=== PATIENT | male | born 1980 | race Caucasian/White ===

== ENCOUNTER 2016-06-20 20:22 | Emergency (ER) | payer BC ==
--- NOTE | 2016-06-20 20:23 | EDM.PDOC ---
ED HPI GENERAL MEDICAL PROBLEM - General Chief Complaint: General Stated Complaint: TOOTH PAIN Time Seen by Provider: 06/20/16 20:23 Source of Information: Reports: Patient History Limitations: Reports: No limitations - History of Present Illness INITIAL COMMENTS - FREE TEXT/NARRATIVE: History of present illness: [36 show male complaining of left-sided oral pain. Patient indicates that he had are filling the broke out and on for the whole and now he's had swelling and pain to the left side of his jaw an area approximately 15.] Review of systems: As per history of present illness and below otherwise all systems reviewed and negative. Past medical history: As per history of present illness and as reviewed below otherwise noncontributory. Surgical history: As per history of present illness and as reviewed below otherwise noncontributory. Social history: No reported history of drug or alcohol abuse. Family history: As per history of present illness and as reviewed below otherwise noncontributory. Physical exam: HEENT: Atraumatic, normocephalic, pupils reactive, negative for conjunctival pallor or scleral icterus, mucous membranes moist, throat clear, neck supple, nontender, trachea midline. Lungs: Clear to auscultation, breath sounds equal bilaterally, chest nontender. Heart: S1S2, regular, negative for clicks, rubs, or JVD. Abdomen: Soft, nondistended, nontender. Negative for masses or hepatosplenomegaly. Negative for costovertebral tenderness. Pelvis: Stable nontender. Genitourinary: Deferred. Rectal: Deferred. Extremities: Atraumatic, negative for cords or calf pain. Neurovascular unremarkable. Neuro: Awake, alert, oriented. Cranial nerves II through XII unremarkable. Cerebellum unremarkable. Motor and sensory unremarkable throughout. Exam nonfocal. oral examination reveals slight erythema and edema noted at jawline but not visualized externally. Slightly tender to palpation and extreme opening Diagnostics: [] Therapeutics: [] Impression: [dental abscess with dental care] Plan: [antibiotics followup with the dentist] Definitive disposition and diagnosis as appropriate pending reevaluation and review of above. - Related Data Allergies Allergy/AdvReac Type Severity Reaction Status Date / Time No Known Allergies Allergy Verified 06/20/16 20:38 Home Meds: Home Meds Amoxicillin/Potassium Clav [Augmentin 875-125 Tablet] 1 each PO BID #20 tablet 06/20/16 [Rx] ED ROS GENERAL - Review of Systems Review Of Systems: See Below (see history of present illness) ED EXAM, GENERAL - Physical Exam Exam: See Below (see history of present illness) Departure - Departure Time of Disposition: 20:49 Disposition: Home, Self-Care 01 Condition: good Clinical Impression: Dental abscess Forms: ED Department Discharge Additional Instructions: The following information is given to patients seen in the emergency department who are being discharged to home. This information is to outline your options for follow-up care. We provide all patients seen in our emergency department with a follow-up referral. The need for follow-up, as well as the timing and circumstances, are variable depending upon the specifics of your emergency department visit. If you don't have a primary care physician on staff, we will provide you with a referral. We always advise you to contact your personal physician following an emergency department visit to inform them of the circumstance of the visit and for follow-up with them and/or the need for any referrals to a consulting specialist. The emergency department will also refer you to a specialist when appropriate. This referral assures that you have the opportunity for follow-up care with a specialist. All of these measure are taken in an effort to provide you with optimal care, which includes your follow-up. Under all circumstances we always encourage you to contact your private physician who remains a resource for coordinating your care. When calling for follow-up care, please make the office aware that this follow-up is from your recent emergency room visit. If for any reason you are refused follow-up, please contact the [facility] Emergency Department at and asked to speak to the emergency department charge nurse. take medication as directed Followup with PCP 1-2 days in this case dental DORINA return to ED as needed as
[2016-06-20 21:04] VITALS: BP 146/82
== END 2016-06-20 20:55 | disposition home or self-care (01) ==
LOC: MW.ED 20:22
DX: K04.7 Periapical abscess without sinus (principal); K02.9 Dental caries, unspecified
CPT/HCPCS: 99282; 99283

== ENCOUNTER 2016-10-07 10:30 | Emergency (ER) | payer BC ==
[2016-10-07] MEDS ORDERED: Ketorolac 60 MG/2 ML SDV IM ONE (10:50)
--- NOTE | 2016-10-07 11:24 | EDM.PDOC ---
ED HPI GENERAL MEDICAL PROBLEM - General Chief Complaint: Back Pain or Injury Stated Complaint: BACK PAIN Time Seen by Provider: 10/07/16 10:40 Source of Information: Reports: Patient History Limitations: Reports: No Limitations - History of Present Illness INITIAL COMMENTS - FREE TEXT/NARRATIVE: History of present illness: [36-year-old male presenting with complaints of acute mid back pain. Patient indicates he does do some heavy lifting at work and he noticed a few days ago some pain in his midback and was able to feel a bit of a knot on the left lateral side. Girlfriend did some massaging to try to help but he felt some significant amount of spasm at this time and it has not really improved appreciably in regards to pain and tightness.] Review of systems: As per history of present illness and below otherwise all systems reviewed and negative. Past medical history: As per history of present illness and as reviewed below otherwise noncontributory. Surgical history: As per history of present illness and as reviewed below otherwise noncontributory. Social history: No reported history of drug or alcohol abuse. Family history: As per history of present illness and as reviewed below otherwise noncontributory. Physical exam: HEENT: Atraumatic, normocephalic, pupils reactive, negative for conjunctival pallor or scleral icterus, mucous membranes moist, throat clear, neck supple, nontender, trachea midline. Lungs: Clear to auscultation, breath sounds equal bilaterally, chest nontender. Heart: S1S2, regular, negative for clicks, rubs, or JVD. Abdomen: Soft, nondistended, nontender. Negative for masses or hepatosplenomegaly. Negative for costovertebral tenderness. Pelvis: Stable nontender. Genitourinary: Deferred. Rectal: Deferred. Extremities: Atraumatic, negative for cords or calf pain. Neurovascular unremarkable. Neuro: Awake, alert, oriented. Cranial nerves II through XII unremarkable. Cerebellum unremarkable. Motor and sensory unremarkable throughout. Exam nonfocal. Global assessment is benign save the subjective complaint as noted in the history of present illness Diagnostics: [X-ray of thoracic spine] Therapeutics: [Toradol, Norflex] Impression: [Back pain] Plan: [Muscle relaxer, NSAIDS] Definitive disposition and diagnosis as appropriate pending reevaluation and review of above. Mid-Back Pain Score (Numeric/FACES): 10 - Related Data Allergies Allergy/AdvReac Type Severity Reaction Status Date / Time No Known Allergies Allergy Verified 10/07/16 10:39 Home Meds: Home Meds Meloxicam 7.5 mg PO BID #30 tablet 10/07/16 [Rx] Orphenadrine [Norflex] 100 mg PO BID #28 tab.er 10/07/16 [Rx] Past Medical History HEENT History: Reports: None Cardiovascular History: Reports: None Respiratory History: Reports: None Gastrointestinal History: Reports: None Genitourinary History: Reports: None Musculoskeletal History: Reports: None Neurological History: Reports: None Psychiatric History: Reports: None Endocrine/Metabolic History: Reports: None Hematologic History: Reports: None Immunologic History: Reports: None Oncologic (Cancer) History: Reports: None Dermatologic History: Reports: None - Infectious Disease History Infectious Disease History: Reports: None - Past Surgical History Head Surgeries/Procedures: Reports: None HEENT Surgical History: Reports: None Cardiovascular Surgical History: Reports: None Respiratory Surgical History: Reports: None GI Surgical History: Reports: Hernia, Inguinal Male Surgical History: Reports: None Endocrine Surgical History: Reports: None Neurological Surgical History: Reports: None Musculoskeletal Surgical History: Reports: None Dermatological Surgical History: Reports: None Social & Family History - Family History Family Medical History: Noncontributory - Tobacco Use Smoking Status *Q: Former Smoker Used Tobacco, but Quit: Yes Month Tobacco Last Used: 2009 - Caffeine Use Caffeine Use: Reports: None - Recreational Drug Use Recreational Drug Use: No ED ROS GENERAL - Review of Systems Review Of Systems: See Below (See history of present illness) ED EXAM, UPPER BACK/NECK PAIN - Physical Exam Exam: See Below (See history of present illness) Course - Vital Signs Last Recorded V/S: Last Vital Signs Temp 36.3 C 10/07/16 10:33 Pulse 78 10/07/16 10:33 Resp 18 10/07/16 10:33 BP 189/113 H 10/07/16 10:33 Pulse Ox 99 10/07/16 10:33 - Orders/Labs/Meds Orders: Active Orders 24 hr Category Date Time Status Thoracic Spine 3V [CR] Stat Exams 10/07/16 10:55 Taken Orphenadrine [Norflex] Med 10/07/16 11:00 Active 60 mg IM Q12H Medication Orders Orphenadrine Citrate (Norflex) 60 mg IM Q12H SANDRA Last Admin: 10/07/16 10:59 Dose: 60 mg Meds: Medications Generic Name Dose Route Start Last Admin Trade Name Freq PRN Reason Stop Dose Admin Orphenadrine Citrate 60 mg 10/07/16 11:00 10/07/16 10:59 Norflex IM 60 mg Q12H SANDRA Administration Discontinued Medications Generic Name Dose Route Start Last Admin Trade Name Freq PRN Reason Stop Dose Admin Ketorolac Tromethamine 60 mg 10/07/16 10:50 10/07/16 11:00 Toradol IM 10/07/16 10:51 60 mg ONETIME ONE Administration Departure - Departure Time of Disposition: 12:04 Disposition: Home, Self-Care 01 Condition: Good Clinical Impression: Back pain - Discharge Information Prescriptions: Meloxicam 7.5 mg PO BID #30 tablet Orphenadrine [Norflex] 100 mg PO BID #28 tab.er Forms: ED Department Discharge Additional Instructions: The following information is given to patients seen in the emergency department who are being discharged to home. This information is to outline your options for follow-up care. We provide all patients seen in our emergency department with a follow-up referral. The need for follow-up, as well as the timing and circumstances, are variable depending upon the specifics of your emergency department visit. If you don't have a primary care physician on staff, we will provide you with a referral. We always advise you to contact your personal physician following an emergency department visit to inform them of the circumstance of the visit and for follow-up with them and/or the need for any referrals to a consulting specialist. The emergency department will also refer you to a specialist when appropriate. This referral assures that you have the opportunity for follow-up care with a specialist. All of these measure are taken in an effort to provide you with optimal care, which includes your follow-up. Under all circumstances we always encourage you to contact your private physician who remains a resource for coordinating your care. When calling for follow-up care, please make the office aware that this follow-up is from your recent emergency room visit. If for any reason you are refused follow-up, please contact the [facility] Emergency Department at and asked to speak to the emergency department charge nurse. Take medication as directed Follow-up with PCP 1-2 days Return to ED as needed as discussed - My Orders Last 24 Hours: My Active Orders 10/07/16 10:55 Thoracic Spine 3V [CR] Stat 10/07/16 11:00 Orphenadrine [Norflex] 60 mg IM Q12H - Assessment/Plan Last 24 Hours: My Active Orders 10/07/16 10:55 Thoracic Spine 3V [CR] Stat 10/07/16 11:00 Orphenadrine [Norflex] 60 mg IM Q12H
[2016-10-07 12:24] VITALS: BP 142/101
--- NOTE | 2016-10-08 15:39 | CR ---
EXAM DATE: 10/07/16 PATIENT'S AGE: 36 Patient: DOMINGO MENJIVAR Facility: [place], [place] Site . Site : [id number] Study: XRay Spine Thoracic [id number] 11:30:19 AM Ordering Physician: Doctor Banks Final Report: TECHNIQUE: Two views of the thoracic spine. INDICATION: Back pain. FINDINGS: No thoracic spine fracture or malalignment. Minimal spondylosis in the lower thoracic spine. Otherwise negative. Dictated by Cruz Mcbride MD @ 10/07/2016 11:50:11 AM Dictated by: Cruz Mcbride MD @ 10/07/2016 11:50:16 (Electronic Signature) Report Signed by Proxy. [facility] HOSPITALRemy
== END 2016-10-07 12:18 | disposition home or self-care (01) ==
LOC: MW.ED 10:30
DX: M54.6 Pain in thoracic spine (principal); Z87.891 Personal history of nicotine dependence
CPT/HCPCS: 72072; 96372; 99283; J1885; J2360

== ENCOUNTER 2017-01-16 14:16 | Emergency (ER) | payer BC ==
[2017-01-16 14:30] VITALS: BP 140/77
--- NOTE | 2017-01-16 14:42 | EDM.PDOC ---
ED HPI GENERAL MEDICAL PROBLEM - General Chief Complaint: Lower Extremity Injury/Pain Stated Complaint: SORE ON HIS LEG Time Seen by Provider: 01/16/17 14:29 Source of Information: Reports: Patient History Limitations: Reports: No Limitations - History of Present Illness INITIAL COMMENTS - FREE TEXT/NARRATIVE: History of present illness: []She fell off a ladder a week ago and twisted his right ankle and cut his right leg. He did not seek help until today when his boss told him he could lose his leg. He states he has numbness and pain from below and behind the knee down to his ankle. There is a 2 cm x 2 cm open wound in the anterior portion of his leg. Patient's last tetanus shot was 3 years ago Review of systems: As per history of present illness and below otherwise all systems reviewed and negative. Past medical history: As per history of present illness and as reviewed below otherwise noncontributory. Surgical history: As per history of present illness and as reviewed below otherwise noncontributory. Social history: No reported history of drug or alcohol abuse. Family history: As per history of present illness and as reviewed below otherwise noncontributory. Physical exam: General: Well developed, well nourished in NAD HEENT: Atraumatic, normocephalic, pupils reactive, negative for conjunctival pallor or scleral icterus, mucous membranes moist, throat clear, neck supple, nontender, trachea midline. Lungs: Clear to auscultation, breath sounds equal bilaterally, chest nontender. Heart: S1S2, regular, negative for clicks, rubs, or JVD. Abdomen: Soft, nondistended, nontender. Negative for masses or hepatosplenomegaly. Negative for costovertebral tenderness. Pelvis: Stable nontender. Genitourinary: Deferred. Rectal: Deferred. Extremities: Atraumatic, negative for cords or calf pain. Neurovascular unremarkable. Neuro: Awake, alert, oriented. Cranial nerves II through XII unremarkable. Cerebellum unremarkable. Motor and sensory unremarkable throughout. Exam nonfocal. Diagnostics: []X-ray shows no fracture ultrasound shows no DVT Therapeutics: [] Impression: []Right leg traumatic ulceration having cellulitis Plan: []Keflex 4 times a day for 7 days follow-up PMD Definitive disposition and diagnosis as appropriate pending reevaluation and review of above. right leg Pain Score (Numeric/FACES): 8 - Related Data Allergies Allergy/AdvReac Type Severity Reaction Status Date / Time No Known Allergies Allergy Verified 01/16/17 14:27 Home Meds: Home Meds Cephalexin [Keflex] 500 mg PO Q6HR #28 cap 01/16/17 [Rx] Past Medical History - Past Health History Medical/Surgical History: Denies Medical/Surgical History HEENT History: Reports: None Cardiovascular History: Reports: None Respiratory History: Reports: None Gastrointestinal History: Reports: None Genitourinary History: Reports: None Musculoskeletal History: Reports: None Neurological History: Reports: None Psychiatric History: Reports: None Endocrine/Metabolic History: Reports: None Hematologic History: Reports: None Immunologic History: Reports: None Oncologic (Cancer) History: Reports: None Dermatologic History: Reports: None - Infectious Disease History Infectious Disease History: Reports: None - Past Surgical History Head Surgeries/Procedures: Reports: None HEENT Surgical History: Reports: None Cardiovascular Surgical History: Reports: None Respiratory Surgical History: Reports: None GI Surgical History: Reports: Hernia, Inguinal Male Surgical History: Reports: None Endocrine Surgical History: Reports: None Neurological Surgical History: Reports: None Musculoskeletal Surgical History: Reports: None Dermatological Surgical History: Reports: None Social & Family History - Family History Family Medical History: Noncontributory - Tobacco Use Smoking Status *Q: Current Every Day Smoker Years of Tobacco use: 20 Packs/Tins Daily: 1 Used Tobacco, but Quit: Yes Month Tobacco Last Used: 2009 - Caffeine Use Caffeine Use: Reports: None - Recreational Drug Use Recreational Drug Use: No Review of Systems - Review of Systems Review Of Systems: See Below (See history of present illness) ED EXAM, GENERAL - Physical Exam Exam: See Below (See history of present illness) Course - Vital Signs Last Recorded V/S: Last Vital Signs Temp 97.8 F 01/16/17 14:16 Pulse 95 01/16/17 14:16 Resp 16 01/16/17 14:16 BP 140/77 01/16/17 14:16 Pulse Ox 98 01/16/17 14:16 - Orders/Labs/Meds Orders: Active Orders 24 hr Category Date Time Status Tibia Fibula Rt [CR] Stat Exams 01/16/17 14:40 Taken Departure - Departure Time of Disposition: 15:31 Disposition: Home, Self-Care 01 Condition: Good Clinical Impression: Cellulitis of right leg - Discharge Information Prescriptions: Cephalexin [Keflex] 500 mg PO Q6HR #28 cap Referrals: PCP,None [Primary Care Provider] - Forms: ED Department Discharge Additional Instructions: The following information is given to patients seen in the emergency department who are being discharged to home. This information is to outline your options for follow-up care. We provide all patients seen in our emergency department with a follow-up referral. The need for follow-up, as well as the timing and circumstances, are variable depending upon the specifics of your emergency department visit. If you don't have a primary care physician on staff, we will provide you with a referral. We always advise you to contact your personal physician following an emergency department visit to inform them of the circumstance of the visit and for follow-up with them and/or the need for any referrals to a consulting specialist. The emergency department will also refer you to a specialist when appropriate. This referral assures that you have the opportunity for follow-up care with a specialist. All of these measure are taken in an effort to provide you with optimal care, which includes your follow-up. Under all circumstances we always encourage you to contact your private physician who remains a resource for coordinating your care. When calling for follow-up care, please make the office aware that this follow-up is from your recent emergency room visit. If for any reason you are refused follow-up, please contact the [facility] Emergency Department at and asked to speak to the emergency department charge nurse. Keflex as directed. Keep wound clean and dry follow-up with PMD turn if symptoms worsen or change [facility] [address] [place] [id number] - My Orders Last 24 Hours: My Active Orders 01/16/17 14:40 Tibia Fibula Rt [CR] Stat - Assessment/Plan Last 24 Hours: My Active Orders 01/16/17 14:40 Tibia Fibula Rt [CR] Stat
--- NOTE | 2017-01-16 15:26 | US ---
ULTRASOUND EXAMINATION OF the right lower extremity WITH DOPPLER HISTORY: Pain FINDINGS: Examination of the right leg was performed from the groin to the calf region. All visualized segment s including common femoral, proximal greater saphenous, superficial femoral, popliteal and calf veins appear patent with good compressibility and augmentation. There is no evidence of deep vein thrombo sis. IMPRESSION: No evidence of a DVT.
--- NOTE | 2017-01-16 15:30 | CR ---
EXAMINATION: Right tibia and fibula HISTORY: Fall COMPARISON: None TECHNIQUE: 2 views FINDINGS/IMPRESSION: There is no acute osseous abnormality, dislocation, or fracture. Bone mineraliza tion and joint spaces appear normal. Well-corticated ossific densities are noted distal to the medial and lateral malleoli, likely secondary to old injuries. Subcutaneous varices noted most prominent al last the medial aspect of the leg.
== END 2017-01-16 15:40 | disposition home or self-care (01) ==
LOC: MW.ED 14:16
DX: L03.115 Cellulitis of right lower limb (principal); L97.919 Non-pressure chronic ulcer of unspecified part of right lower leg with unspecified severity; F17.210 Nicotine dependence, cigarettes, uncomplicated
CPT/HCPCS: 73590-26-RT; 73590-RT; 93971-26-RT; 93971-RT; 99284; 99284-25

== ENCOUNTER 2018-06-04 10:51 | Emergency (ER) | payer SELFPAY ==
[2018-06-04] MEDS ORDERED: Ketorolac 60 MG/2 ML SDV IM ONE (11:22)
--- NOTE | 2018-06-04 11:27 | EDM.PDOC ---
ED HPI GENERAL MEDICAL PROBLEM - General Chief Complaint: Back Pain or Injury Stated Complaint: BACK PAIN Time Seen by Provider: 06/04/18 10:57 Source of Information: Reports: Patient History Limitations: Reports: No Limitations - History of Present Illness INITIAL COMMENTS - FREE TEXT/NARRATIVE: HISTORY AND PHYSICAL: History of present illness: Patient is a 38-year-old male who presents to the emergency room today with complaints of lumbar back pain, right hip pain and right knee pain. Patient states that on 05/29/18 a wall. Patient had fallen onto him resulting in him falling onto his right side onto the ground. He denies hitting his head or any loss of consciousness. He states initially after the fall she did not have any pain at this time has gone on he has pain to these areas. He denies any urinary or fecal incontinence. He states he is ambulatory without any difficulty or deficits, although this does cause pain as described above. Patient denies any fever, chills, headache, change in vision, syncope or near syncope. Denies any chest pain, back pain, shortness of breath or cough. Denies any abdominal pain, nausea, vomiting, diarrhea, constipation or dysuria. Has not noted any blood in urine or stool. Patient has been eating and drinking appropriately. Review of systems: As per history of present illness and below otherwise all systems reviewed and negative. Past medical history: As per history of present illness and as reviewed below otherwise noncontributory. Surgical history: As per history of present illness and as reviewed below otherwise noncontributory. Social history: See social history for further information Family history: As per history of present illness and as reviewed below otherwise noncontributory. Physical exam: General: Well-developed and well-nourished 38-year-old male. Alert and oriented. Nontoxic appearing and in no acute distress. HEENT: Atraumatic, normocephalic, pupils equal and reactive bilaterally, negative for conjunctival pallor or scleral icterus, mucous membranes moist, TMs normal bilaterally, throat clear, neck supple, nontender, trachea midline. No drooling or trismus noted. No meningeal signs. No hot potato voice noted. Lungs: Clear to auscultation, breath sounds equal bilaterally, chest nontender. Heart: S1S2, regular rate and rhythm without overt murmur Abdomen: Soft, nondistended, nontender. Negative for masses. Negative for costovertebral tenderness. Pelvis: Stable nontender. Genitourinary: Deferred. Rectal: Deferred. Skin: Intact, warm, dry. No lesions or rashes noted. C-spine/Back: No pinpoint vertebral tenderness upon palpation. No crepitus, step -offs or obvious deformities. Patient is ambulatory into the emergency room without difficulty or deficits. He does have paraspinous muscle tenderness to the right lumbar region going into the right hip. Extremities: Moves all extremities per self with difficulty or deficits, no pelvis instability. Knee has full range of motion without instability. Negative drawer test. Strong pedal pulses bilaterally. He is negative for cords or calf pain. Neurovascular unremarkable. Neuro: Awake, alert, oriented. Cranial nerves II through XII unremarkable. Cerebellum unremarkable. Motor and sensory unremarkable throughout. Exam nonfocal. Notes: X-ray shows no acute findings. The right hip and pelvis does not show any acute findings although does show to have an old previous injury. Supportive care measures were reviewed and discussed. Voices understanding and is agreeable to plan of care. Denies any further questions or concerns at this time. Diagnostics: Lumbar back x-ray, pelvis with right hip x-ray, right knee x-ray Therapeutics: Toradol, Norflex Prescription: Flexeril, diclofenac Impression: Lumbar back pain Right hip pain Plan: 1. Rest, ice, elevate the affected extremity. Apply gentle heat to the painful areas 15 minutes on/15 minutes off. Gentle stretching to avoid muscle stiffness. 2. Tylenol and/or Ibuprofen as needed for pain management. 3. Follow up with the Orthopedic provider as we discussed. Return to the ED as needed and as discussed. Definitive disposition and diagnosis as appropriate pending reevaluation and review of above. Duration: Week(s): Right Hip Pain Score (Numeric/FACES): 10 - Related Data Allergies Allergy/AdvReac Type Severity Reaction Status Date / Time No Known Allergies Allergy Verified 11/28/17 17:43 Home Meds: Home Meds Cyclobenzaprine [Flexeril] 10 mg PO TID PRN #21 tab 06/04/18 [Rx] Diclofenac Sodium [Voltaren] 75 mg PO BIDMEALS PRN #30 tab.cr 06/04/18 [Rx] Past Medical History - Past Health History Medical/Surgical History: Denies Medical/Surgical History HEENT History: Reports: None Cardiovascular History: Reports: None Respiratory History: Reports: None Gastrointestinal History: Reports: None Genitourinary History: Reports: None Musculoskeletal History: Reports: None Neurological History: Reports: None Psychiatric History: Reports: None Endocrine/Metabolic History: Reports: None Hematologic History: Reports: None Immunologic History: Reports: None Oncologic (Cancer) History: Reports: None Dermatologic History: Reports: None - Infectious Disease History Infectious Disease History: Reports: None - Past Surgical History Head Surgeries/Procedures: Reports: None HEENT Surgical History: Reports: None Cardiovascular Surgical History: Reports: None Respiratory Surgical History: Reports: None GI Surgical History: Reports: Hernia, Inguinal Male Surgical History: Reports: None Endocrine Surgical History: Reports: None Neurological Surgical History: Reports: None Musculoskeletal Surgical History: Reports: None Dermatological Surgical History: Reports: None Social & Family History - Family History Family Medical History: Noncontributory - Tobacco Use Smoking Status *Q: Former Smoker Years of Tobacco use: 25 Used Tobacco, but Quit: Yes Month/Year Tobacco Last Used: 1year - Caffeine Use Caffeine Use: Reports: Coffee - Recreational Drug Use Recreational Drug Use: No ED ROS GENERAL - Review of Systems Review Of Systems: ROS reveals no pertinent complaints other than HPI. ED EXAM,LOWER BACK PAIN/INJURY - Physical Exam Exam: See Below (See dictation) Course - Vital Signs Last Recorded V/S: Last Vital Signs Temp 97.4 F 06/04/18 11:11 Pulse 89 06/04/18 11:11 Resp 18 06/04/18 11:11 BP 131/104 H 06/04/18 11:11 Pulse Ox 98 06/04/18 11:11 - Orders/Labs/Meds Meds: Medications Discontinued Medications Generic Name Dose Route Start Last Admin Trade Name Freq PRN Reason Stop Dose Admin Ketorolac Tromethamine 60 mg 06/04/18 11:22 06/04/18 11:29 Toradol IM 06/04/18 11:23 60 mg ONETIME ONE Administration Orphenadrine Citrate 60 mg 06/04/18 11:22 06/04/18 11:29 Norflex IM 06/04/18 11:23 60 mg NOW STA Administration Departure - Departure Time of Disposition: 12:14 Disposition: Home, Self-Care 01 Clinical Impression: Lumbar back pain, Right hip pain - Discharge Information Prescriptions: Cyclobenzaprine [Flexeril] 10 mg PO TID PRN #21 tab PRN Reason: Pain Diclofenac Sodium [Voltaren] 75 mg PO BIDMEALS PRN #30 tab.cr PRN Reason: Pain Instructions: Acute Back Pain, Adult Referrals: PCP,None [Primary Care Provider] - Forms: ED Department Discharge Additional Instructions: The following information is given to patients seen in the emergency department who are being discharged to home. This information is to outline your options for follow-up care. We provide all patients seen in our emergency department with a follow-up referral. The need for follow-up, as well as the timing and circumstances, are variable depending upon the specifics of your emergency department visit. If you don't have a primary care physician on staff, we will provide you with a referral. We always advise you to contact your personal physician following an emergency department visit to inform them of the circumstance of the visit and for follow-up with them and/or the need for any referrals to a consulting specialist. The emergency department will also refer you to a specialist when appropriate. This referral assures that you have the opportunity for follow-up care with a specialist. All of these measure are taken in an effort to provide you with optimal care, which includes your follow-up. Under all circumstances we always encourage you to contact your private physician who remains a resource for coordinating your care. When calling for follow-up care, please make the office aware that this follow-up is from your recent emergency room visit. If for any reason you are refused follow-up, please contact the Emergency Department at and asked to speak to the emergency department charge nurse. Primary Care [address] [place] [address] [id number] [address] [id number] 1. Rest, ice, elevate the affected extremity. Apply gentle heat to the painful areas 15 minutes on/15 minutes off. Gentle stretching to avoid muscle stiffness. 2. Tylenol and/or Ibuprofen as needed for pain management. 3. Follow up with the Orthopedic provider as we discussed. Return to the ED as needed and as discussed.
--- NOTE | 2018-06-04 12:06 | CR ---
EXAMINATION: Lumbar spine HISTORY: Pain COMPARISON: None TECHNIQUE: AP and lateral views FINDINGS: The lumbar spinal alignment is normal. Vertebral body heights and disc spaces appear well-maintained. There is no fracture or acute osseous abnormality. Bone mineralization is normal. SI joints are symmetric. Spina bifida occulta. IMPRESSION: Unremarkable lumbar spine.
--- NOTE | 2018-06-04 12:09 | CR ---
EXAMINATION: Pelvis and right hip HISTORY: Injury COMPARISON: None TECHNIQUE: AP pelvis and 2 views of the right FINDINGS: There is no acute osseous abnormality, dislocation, or fracture. There is an is excrescent Contour abnormality along the right femoral head near the fovea. This does not appear acute. SI joints are symmetric. The iliopectineal lines are intact. IMPRESSION: 1. Contour abnormality along the right femoral head near the fovea, this does not appear acute and may represent a previous injury.
--- NOTE | 2018-06-04 12:10 | CR ---
EXAMINATION: Right knee HISTORY: Injury COMPARISON: 01/16/2017 TECHNIQUE: 2 views FINDINGS/IMPRESSION: There is no acute osseous abnormality, dislocation, or fracture. Bone mineralization and joint spaces are preserved. No soft tissue swelling or joint effusion.
[2018-06-04 14:01] VITALS: BP 131/104
== END 2018-06-04 12:42 | disposition home or self-care (01) ==
LOC: MW.ED 10:51
DX: M54.5 Low back pain (principal); M25.551 Pain in right hip; Z87.891 Personal history of nicotine dependence
CPT/HCPCS: 72100; 73502; 73560; 96372; 99283; J1885; J2360

== ENCOUNTER 2018-09-11 10:29 | Emergency (ER) | payer SELFPAY ==
[2018-09-11] MEDS ORDERED: Sodium Chloride 0.9% 10 ML Syringe FLUSH PRN (10:41)
[2018-09-11] MEDS ORDERED: Sodium Chloride 0.9% 2.5 ML Syringe FLUSH PRN (10:41)
[2018-09-11] MEDS ORDERED: Alum Hydrox/Mag Hydrox/Simeth 15 ML, Lidocaine 2% 5 ML PO ONE ×2 (10:44)
[2018-09-11 10:47] VITALS: BP 113/92
[2018-09-11] MEDS ORDERED: Sodium Chloride 0.9% 1,000 ML IV ONE (10:51)
--- NOTE | 2018-09-11 10:52 | EDM.PDOC ---
ED HPI GENERAL MEDICAL PROBLEM - General Chief Complaint: Abdominal Pain Stated Complaint: ABD PAIN Time Seen by Provider: 09/11/18 10:48 Source of Information: Reports: Patient History Limitations: Reports: No Limitations - History of Present Illness INITIAL COMMENTS - FREE TEXT/NARRATIVE: HISTORY AND PHYSICAL: History of present illness: Patient is a 30-year-old male presents to the ED with complaint of abdominal pain 5 days. He reports nausea and vomiting as well as diarrhea. States he had some bright red blood in his stool. Denies fevers but states he's been chilled. Pain is in the epigastrium and he states he's been having really bad heartburn. He was treated for H. pylori last year and symptoms are similar. He denies any pain with urination or hematuria but states his urine has been dark and odorous. Denies previous abdominal surgeries or significant past medical history. Review of systems: As per history of present illness and below otherwise all systems reviewed and negative. Past medical history: As per history of present illness and as reviewed below otherwise noncontributory. Surgical history: As per history of present illness and as reviewed below otherwise noncontributory. Social history: No reported history of drug or alcohol abuse. Family history: As per history of present illness and as reviewed below otherwise noncontributory. Physical exam: General: Patient sitting comfortably in no acute distress and nontoxic appearing HEENT: Atraumatic, normocephalic, pupils reactive, negative for conjunctival pallor or scleral icterus, mucous membranes moist, throat clear, neck supple, nontender, trachea midline. No meningeal signs. Lungs: Clear to auscultation, breath sounds equal bilaterally, chest nontender. Heart: S1S2, regular, negative for clicks, rubs, or overt murmur. Abdomen: Epigastric tenderness to palpation. Soft, nondistended. Negative for masses or hepatosplenomegaly. Negative for costovertebral tenderness. No rigidity, rebound, guarding. Pelvis: Stable nontender. Genitourinary: Deferred. Rectal: Deferred. Extremities: Atraumatic, negative for cords or calf pain. Neurovascular unremarkable. Neuro: Awake, alert, oriented. Cranial nerves II through XII unremarkable. Cerebellum unremarkable. Motor and sensory unremarkable throughout. Exam nonfocal. Notes: Diagnostics: CBC, CMP, lipase, UA Therapeutics: 1 L normal saline IV GI cocktail Prescriptions: zofran omeprazole Impression: gastroenteritis Plan: Drink plenty of small sips of fluids throughout the day. [place] food as tolerated. You may take zofran as needed for nausea/vomiting. Follow up with primary care provider. Definitive disposition and diagnosis as appropriate pending reevaluation and review of above. epigastric Pain Score (Numeric/FACES): 10 - Related Data Allergies Allergy/AdvReac Type Severity Reaction Status Date / Time No Known Allergies Allergy Verified 09/11/18 10:38 Home Meds: Home Meds Omeprazole 20 mg PO ACBREAKFAST #30 cap.sr 09/11/18 [Rx] Ondansetron [Zofran ODT] 4 mg PO Q6H PRN #10 tab.dis 09/11/18 [Rx] Past Medical History - Past Health History Medical/Surgical History: Denies Medical/Surgical History HEENT History: Reports: None Cardiovascular History: Reports: None Respiratory History: Reports: None Gastrointestinal History: Reports: GERD Genitourinary History: Reports: None Musculoskeletal History: Reports: None Neurological History: Reports: None Psychiatric History: Reports: None Endocrine/Metabolic History: Reports: None Hematologic History: Reports: None Immunologic History: Reports: None Oncologic (Cancer) History: Reports: None Dermatologic History: Reports: None - Infectious Disease History Infectious Disease History: Reports: None - Past Surgical History Head Surgeries/Procedures: Reports: None HEENT Surgical History: Reports: None Cardiovascular Surgical History: Reports: None Respiratory Surgical History: Reports: None GI Surgical History: Reports: Hernia, Inguinal Male Surgical History: Reports: None Endocrine Surgical History: Reports: None Neurological Surgical History: Reports: None Musculoskeletal Surgical History: Reports: None Oncologic Surgical History: Reports: None Dermatological Surgical History: Reports: None Social & Family History - Family History Family Medical History: Noncontributory - Tobacco Use Smoking Status *Q: Current Every Day Smoker Years of Tobacco use: 26 Packs/Tins Daily: 0.5 - Caffeine Use Caffeine Use: Reports: Coffee, Energy Drinks - Alcohol Use Days Per Week of Alcohol Use: 7 Number of Drinks Per Day: 6 Total Drinks Per Week: 42 - Recreational Drug Use Recreational Drug Use: No ED ROS GENERAL - Review of Systems Review Of Systems: ROS reveals no pertinent complaints other than HPI. ED EXAM, GI/ABD - Physical Exam Exam: See Below (See dictation) Course - Vital Signs Last Recorded V/S: Last Vital Signs Temp 97.3 F 09/11/18 10:34 Pulse 97 09/11/18 10:34 Resp 18 09/11/18 10:34 BP 113/92 H 09/11/18 10:34 Pulse Ox 97 09/11/18 10:34 - Orders/Labs/Meds Orders: Active Orders 24 hr Category Date Time Status Sodium Chloride 0.9% [Saline Flush] Med 09/11/18 10:41 Active 10 ml FLUSH ASDIRECTED PRN Sodium Chloride 0.9% [Saline Flush] Med 09/11/18 10:41 Active 2.5 ml FLUSH ASDIRECTED PRN Saline Lock Insert [OM.PC] Stat Oth 09/11/18 10:41 Ordered Medication Orders Sodium Chloride (Saline Flush) 10 ml FLUSH ASDIRECTED PRN PRN Reason: Keep Vein Open Sodium Chloride (Saline Flush) 2.5 ml FLUSH ASDIRECTED PRN PRN Reason: Keep Vein Open Labs: Laboratory Tests 09/11/18 09/11/18 09/11/18 Range/Units 10:47 10:47 11:03 WBC 5.97 (4.0-11.0) K/uL RBC 4.98 (4.50-5.90) M/uL Hgb 15.0 (13.0-17.0) g/dL Hct 45.1 (38.0-50.0) % MCV 90.6 (80.0-98.0) fL MCH 30.1 (27.0-32.0) pg MCHC 33.3 (31.0-37.0) g/dL RDW Std Deviation 42.0 (28.0-62.0) fl RDW Coeff of Nu 13 (11.0-15.0) % Plt Count 211 (150-400) K/uL MPV 10.30 (7.40-12.00) fL Neut % (Auto) 47.9 L (48.0-80.0) % Lymph % (Auto) 36.0 (16.0-40.0) % [place] % (Auto) 13.1 (0.0-15.0) % Eos % (Auto) 2.5 (0.0-7.0) % Baso % (Auto) 0.5 (0.0-1.5) % Neut # (Auto) 2.9 (1.4-5.7) K/uL Lymph # (Auto) 2.2 (0.6-2.4) K/uL [place] # (Auto) 0.8 (0.0-0.8) K/uL Eos # (Auto) 0.2 (0.0-0.7) K/uL Baso # (Auto) 0.0 (0.0-0.1) K/uL Nucleated RBC % 0.0 /100WBC Nucleated RBCs # 0 K/uL Sodium 138 (136-148) mmol/L Potassium 4.2 (3.5-5.1) mmol/L Chloride 104 (98-107) mmol/L Carbon Dioxide 25.0 (21.0-32.0) mmol/L BUN 15 (7.0-18.0) mg/dL Creatinine 1.0 (0.8-1.3) mg/dL Est Cr Clr Drug Dosing 103.42 mL/min Estimated GFR (MDRD) > 60.0 ml/min Glucose 99 (74-106) mg/dL Calcium 9.6 (8.5-10.1) mg/dL Total Bilirubin 0.4 (0.2-1.0) mg/dL AST 19 (15-37) IU/L ALT 38 (14-63) IU/L Alkaline Phosphatase 69 (46-116) U/L Total Protein 7.8 (6.4-8.2) g/dL Albumin 3.8 (3.4-5.0) g/dL Globulin 4.0 (2.6-4.0) g/dL Albumin/Globulin Ratio 0.9 (0.9-1.6) Lipase 158 (73-393) U/L Urine Color YELLOW Urine Appearance CLEAR Urine pH 6.0 (5.0-8.0) Ur Specific [place] 1.010 (1.001-1.035) Urine Protein NEGATIVE (NEGATIVE) mg/dL Urine Glucose (UA) NEGATIVE (NEGATIVE) mg/dL Urine Ketones NEGATIVE (NEGATIVE) mg/dL Urine Occult Blood NEGATIVE (NEGATIVE) Urine Nitrite NEGATIVE (NEGATIVE) Urine Bilirubin NEGATIVE (NEGATIVE) Urine Urobilinogen 0.2 (<2.0) EU/dL Ur Leukocyte Esterase NEGATIVE (NEGATIVE) Meds: Medications Generic Name Dose Route Start Last Admin Trade Name Freq PRN Reason Stop Dose Admin Sodium Chloride 10 ml 09/11/18 10:41 Saline Flush FLUSH ASDIRECTED PRN Keep Vein Open Sodium Chloride 2.5 ml 09/11/18 10:41 Saline Flush FLUSH ASDIRECTED PRN Keep Vein Open Discontinued Medications Generic Name Dose Route Start Last Admin Trade Name Freq PRN Reason Stop Dose Admin Al Hydroxide/Mg Hydroxide 15 0 ml 09/11/18 10:44 09/11/18 10:55 ml/ Lidocaine HCl 5 ml PO 09/11/18 10:45 20 each ONETIME ONE Administration Sodium Chloride 1,000 mls @ 999 mls/hr 09/11/18 10:51 09/11/18 10:58 Normal Saline IV 09/11/18 11:51 999 mls/hr STAT ONE Administration Departure - Departure Time of Disposition: 12:06 Disposition: Home, Self-Care 01 Condition: Good Clinical Impression: Gastroenteritis - Discharge Information Prescriptions: Omeprazole 20 mg PO ACBREAKFAST #30 cap.sr Ondansetron [Zofran ODT] 4 mg PO Q6H PRN #10 tab.dis PRN Reason: Nausea/Vomiting Referrals: PCP,None [Primary Care Provider] - Forms: ED Department Discharge Additional Instructions: The following information is given to patients seen in the emergency department who are being discharged to home. This information is to outline your options for follow-up care. We provide all patients seen in our emergency department with a follow-up referral. The need for follow-up, as well as the timing and circumstances, are variable depending upon the specifics of your emergency department visit. If you don't have a primary care physician on staff, we will provide you with a referral. We always advise you to contact your personal physician following an emergency department visit to inform them of the circumstance of the visit and for follow-up with them and/or the need for any referrals to a consulting specialist. The emergency department will also refer you to a specialist when appropriate. This referral assures that you have the opportunity for follow-up care with a specialist. All of these measure are taken in an effort to provide you with optimal care, which includes your follow-up. Under all circumstances we always encourage you to contact your private physician who remains a resource for coordinating your care. When calling for follow-up care, please make the office aware that this follow-up is from your recent emergency room visit. If for any reason you are refused follow-up, please contact the [facility] Emergency Department at and asked to speak to the emergency department charge nurse. [facility] Primary [facility] [address] [place] [address] [facility] [address] [place] [id number] Drink plenty of small sips of fluids throughout the day. [place] food as tolerated. You may take zofran as needed for nausea/vomiting. Follow up with primary care provider. - My Orders Last 24 Hours: My Active Orders 09/11/18 10:41 Sodium Chloride 0.9% [Saline Flush] 10 ml FLUSH ASDIRECTED PRN Sodium Chloride 0.9% [Saline Flush] 2.5 ml FLUSH ASDIRECTED PRN Saline Lock Insert [OM.PC] Stat - Assessment/Plan Last 24 Hours: My Active Orders 09/11/18 10:41 Sodium Chloride 0.9% [Saline Flush] 10 ml FLUSH ASDIRECTED PRN Sodium Chloride 0.9% [Saline Flush] 2.5 ml FLUSH ASDIRECTED PRN Saline Lock Insert [OM.PC] Stat
[2018-09-11 11:22] LABS: CHLORIDE,CL 104 mmol/L (98-107); SODIUM,NA 138 mmol/L (136-148)
== END 2018-09-11 12:15 | disposition home or self-care (01) ==
LOC: MW.ED 10:29
DX: K52.9 Noninfective gastroenteritis and colitis, unspecified (principal); K21.9 Gastro-esophageal reflux disease without esophagitis; F17.210 Nicotine dependence, cigarettes, uncomplicated
CPT/HCPCS: 36415; 80053; 81003; 83690; 85025; 96360; 99284; A9270; J7040; 99283

== ENCOUNTER 2018-10-01 06:46 | Emergency (ER) | payer OTHER ==
[2018-10-01] MEDS ORDERED: Ketorolac 60 MG/2 ML SDV IM ONE (07:15)
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
[2018-10-01 09:13] VITALS: BP 138/75
== END 2018-10-01 09:06 | disposition home or self-care (01) ==
LOC: MW.ED 06:46
DX: S93.401A Sprain of unspecified ligament of right ankle, initial encounter (principal); S76.012A Strain of muscle, fascia and tendon of left hip, initial encounter; V28.4XXA Motorcycle driver injured in noncollision transport accident in traffic accident, initial encounter
CPT/HCPCS: 73502; 73610; 81001; 96372; 99283; J1885

== ENCOUNTER 2018-11-14 05:27 | Emergency (ER) | payer BC, OTHER ==
[2018-11-14] MEDS ORDERED: Sodium Chloride 0.9% 1,000 ML IV SCH (05:45)
[2018-11-14 06:20] LABS: BLOOD UREA NITROGEN,BUN 17 mg/dL (7.0-18.0); CARBON DIOXIDE,CO2 26.6 mmol/L (21.0-32.0); CHLORIDE,CL 101 mmol/L (98-107); GLUCOSE RANDOM 163 mg/dL (74-106); POTASSIUM,K 4.1 mmol/L (3.5-5.1); SODIUM,NA 137 mmol/L (136-148)
--- NOTE | 2018-11-14 06:40 | EDM.PDOC ---
ED HPI GENERAL MEDICAL PROBLEM - General Chief Complaint: Abdominal Pain Stated Complaint: LOWER ABDOMINAL/GROIN PAIN, BLOOD IN URINE Time Seen by Provider: 11/14/18 06:37 - History of Present Illness INITIAL COMMENTS - FREE TEXT/NARRATIVE: HISTORY AND PHYSICAL: History of present illness: Patient 38-year-old male presents with a concern of lower abdominal pain worse over the last 24 hours is in no associated nausea vomiting diarrhea or other concerns he denies a history of urolithiasis he denies trauma patient states this is primarily suprapubic in location Review of systems: As per history of present illness and below otherwise all systems reviewed and negative. Past medical history: As per history of present illness and as reviewed below otherwise noncontributory. Surgical history: As per history of present illness and as reviewed below otherwise noncontributory. Social history: No reported history of drug or alcohol abuse. Family history: As per history of present illness and as reviewed below otherwise noncontributory. Physical exam: HEENT: Atraumatic, normocephalic, pupils reactive, negative for conjunctival pallor or scleral icterus, mucous membranes moist, throat clear, neck supple, nontender, trachea midline. Lungs: Clear to auscultation, breath sounds equal bilaterally, chest nontender. Heart: S1S2, regular, negative for clicks, rubs, or JVD. Abdomen: Soft, nondistended, nonlocalized tenderness across his lower abdomen. Negative for masses or hepatosplenomegaly. Negative for costovertebral tenderness. Pelvis: Stable nontender. Genitourinary: Deferred. Rectal: Deferred. Extremities: Atraumatic, negative for cords or calf pain. Neurovascular unremarkable. Neuro: Awake, alert, oriented. Cranial nerves II through XII unremarkable. Cerebellum unremarkable. Motor and sensory unremarkable throughout. Exam nonfocal. Diagnostics: CBC CMP UA UDS CT abdomen and pelvis Therapeutics: Saline 1 L bolus Impression: #1 lower abdominal pain Definitive disposition and diagnosis as appropriate pending reevaluation and review of above. Lower Abdomen Pain Score (Numeric/FACES): 10 - Related Data Allergies Allergy/AdvReac Type Severity Reaction Status Date / Time No Known Allergies Allergy Verified 11/14/18 05:38 Home Meds: Home Meds . [No Known Home Meds] 11/14/18 [History] Past Medical History - Past Health History Medical/Surgical History: Denies Medical/Surgical History HEENT History: Reports: None Cardiovascular History: Reports: None Respiratory History: Reports: None Gastrointestinal History: Reports: Helicobacter Pylori, Hiatal Hernia, Other ( See Below) Other Gastrointestinal History: gastroenteritis Genitourinary History: Reports: None Musculoskeletal History: Reports: None Neurological History: Reports: None Psychiatric History: Reports: None Endocrine/Metabolic History: Reports: None Hematologic History: Reports: None Immunologic History: Reports: None Oncologic (Cancer) History: Reports: None Dermatologic History: Reports: None - Infectious Disease History Infectious Disease History: Reports: None - Past Surgical History Head Surgeries/Procedures: Reports: None HEENT Surgical History: Reports: None Cardiovascular Surgical History: Reports: None Respiratory Surgical History: Reports: None GI Surgical History: Reports: None Male Surgical History: Reports: None Endocrine Surgical History: Reports: None Neurological Surgical History: Reports: None Musculoskeletal Surgical History: Reports: None Oncologic Surgical History: Reports: None Dermatological Surgical History: Reports: None Social & Family History - Family History Family Medical History: Noncontributory - Tobacco Use Smoking Status *Q: Former Smoker Used Tobacco, but Quit: Yes Month/Year Tobacco Last Used: 10/2018 Tobacco Use Comment: quit 3 wks ago - Caffeine Use Caffeine Use: Reports: Coffee - Recreational Drug Use Recreational Drug Use: No ED ROS GENERAL - Review of Systems Review Of Systems: ROS reveals no pertinent complaints other than HPI. ED EXAM, GENERAL - Physical Exam Exam: See Below (See dictation) Course - Vital Signs Last Recorded V/S: Last Vital Signs Temp 36.6 C 11/14/18 05:29 Pulse 111 H 11/14/18 05:29 Resp 20 11/14/18 05:29 BP 144/88 H 11/14/18 05:29 Pulse Ox 92 L 11/14/18 05:29 - Orders/Labs/Meds Orders: Active Orders 24 hr Category Date Time Status DRUG SCREEN, URINE [URCHEM] Stat Lab 11/14/18 06:38 Ordered UA W/MICROSCOPIC [URIN] Stat Lab 11/14/18 05:44 Ordered Sodium Chloride 0.9% [Normal Saline] 1,000 ml Med 11/14/18 05:45 Active IV ASDIRECTED Medication Orders Sodium Chloride (Normal Saline) 1,000 mls @ 999 mls/hr IV ASDIRECTED SANDRA Last Admin: 11/14/18 06:03 Dose: 999 mls/hr Labs: Laboratory Tests 11/14/18 11/14/18 Range/Units 05:50 05:50 WBC 9.40 (4.0-11.0) K/uL RBC 4.69 (4.50-5.90) M/uL Hgb 14.0 (13.0-17.0) g/dL Hct 43.3 (38.0-50.0) % MCV 92.3 (80.0-98.0) fL MCH 29.9 (27.0-32.0) pg MCHC 32.3 (31.0-37.0) g/dL RDW Std Deviation 43.6 (28.0-62.0) fl RDW Coeff of Nu 13 (11.0-15.0) % Plt Count 224 (150-400) K/uL MPV 11.00 (7.40-12.00) fL Neut % (Auto) 67.6 (48.0-80.0) % Lymph % (Auto) 16.8 (16.0-40.0) % Darke % (Auto) 12.6 (0.0-15.0) % Eos % (Auto) 2.6 (0.0-7.0) % Baso % (Auto) 0.4 (0.0-1.5) % Neut # (Auto) 6.4 H (1.4-5.7) K/uL Lymph # (Auto) 1.6 (0.6-2.4) K/uL Darke # (Auto) 1.2 H (0.0-0.8) K/uL Eos # (Auto) 0.2 (0.0-0.7) K/uL Baso # (Auto) 0.0 (0.0-0.1) K/uL Nucleated RBC % 0.0 /100WBC Nucleated RBCs # 0 K/uL Sodium 137 (136-148) mmol/L Potassium 4.1 (3.5-5.1) mmol/L Chloride 101 (98-107) mmol/L Carbon Dioxide 26.6 (21.0-32.0) mmol/L BUN 17 (7.0-18.0) mg/dL Creatinine 1.1 (0.8-1.3) mg/dL Est Cr Clr Drug Dosing 91.05 mL/min Estimated GFR (MDRD) > 60.0 ml/min Glucose 163 H (74-106) mg/dL Calcium 9.0 (8.5-10.1) mg/dL Total Bilirubin 1.0 (0.2-1.0) mg/dL AST 30 (15-37) IU/L ALT 30 (14-63) IU/L Alkaline Phosphatase 78 (46-116) U/L Total Protein 7.9 (6.4-8.2) g/dL Albumin 3.4 (3.4-5.0) g/dL Globulin 4.5 H (2.6-4.0) g/dL Albumin/Globulin Ratio 0.8 L (0.9-1.6) Meds: Medications Generic Name Dose Route Start Last Admin Trade Name Freq PRN Reason Stop Dose Admin Sodium Chloride 1,000 mls @ 999 mls/hr 11/14/18 05:45 11/14/18 06:03 Normal Saline IV 999 mls/hr ASDIRECTED SANDRA Administration Departure - Departure Time of Disposition: 07:01 Disposition: Home, Self-Care 01 Condition: Good Clinical Impression: Abdominal pain, Diverticulitis - Discharge Information Referrals: PCP,None [Primary Care Provider] - Forms: ED Department Discharge Additional Instructions: The following information is given to patients seen in the emergency department who are being discharged to home. This information is to outline your options for follow-up care. We provide all patients seen in our emergency department with a follow-up referral. The need for follow-up, as well as the timing and circumstances, are variable depending upon the specifics of your emergency department visit. If you don't have a primary care physician on staff, we will provide you with a referral. We always advise you to contact your personal physician following an emergency department visit to inform them of the circumstance of the visit and for follow-up with them and/or the need for any referrals to a consulting specialist. The emergency department will also refer you to a specialist when appropriate. This referral assures that you have the opportunity for followup care with a specialist. All of these measure are taken in an effort to provide you with optimal care, which includes your followup. Under all circumstances we always encourage you to contact your private physician who remains a resource for coordinating your care. When calling for followup care, please make the office aware that this follow-up is from your recent emergency room visit. If for any reason you are refused follow-up, please contact the [facility] emergency department at and asked to speak to the emergency department charge nurse. NORMA [facility] Specialty Care - General Surgery Professional Building [address] [place] [address], [address] [place] [address] Chirag Medellin as prescribed follow-up Gen. surgery above who scheduled an appointment push fluids and return as needed as discussed - My Orders Last 24 Hours: My Active Orders 11/14/18 05:44 UA W/MICROSCOPIC [URIN] Stat 11/14/18 05:45 Sodium Chloride 0.9% [Normal Saline] 1,000 ml IV ASDIRECTED 11/14/18 06:38 DRUG SCREEN, URINE [URCHEM] Stat - Assessment/Plan Last 24 Hours: My Active Orders 11/14/18 05:44 UA W/MICROSCOPIC [URIN] Stat 11/14/18 05:45 Sodium Chloride 0.9% [Normal Saline] 1,000 ml IV ASDIRECTED 11/14/18 06:38 DRUG SCREEN, URINE [URCHEM] Stat
--- NOTE | 2018-11-14 06:45 | CT ---
INDICATION: Left lower quadrant abdominal pain for 2 days. Going through alcohol withdrawal. Previous history of surgery as an . COMPARISON: COMPARISON DATE TECHNIQUE: CT examination of the abdomen and pelvis was performed without contrast enhancement using 3 mm thick axial sections from the lung bases through the pubic symphysis. Oral contrast was not administered. Please note that all CT scans at this facility use dose modulation, iterative reconstruction, and/or weight-based dosing when appropriate to reduce radiation dose to as low as reasonably achievable. FINDINGS: In the abdomen, the unenhanced liver, spleen, pancreas, and adrenals are normal in appearance. The unenhanced kidneys are normal in appearance. There is slightly higher density in the majority of the dependent portion of the gallbladder suggesting sludge or small calculi. The gallbladder is otherwise normal in appearance. The abdominal aorta is normal in caliber with no sign of dilatation. There is no sign of retroperitoneal mass or adenopathy. The stomach and loops of small bowel in the abdomen are normal in appearance. There is moderate diverticulosis of the entire colon in the abdomen with no sign of diverticulitis. There is a tiny fat containing periumbilical hernia. In the pelvis, the appendix is nonvisualized, but there is no sign of an inflammatory process in the area of the appendix. There is moderate inflammation around a inflamed diverticulum arising from the midportion of the sigmoid colon, projecting towards the midline, findings consistent with moderate acute diverticulitis. No distinct fluid collection or extraluminal gas to suggest abscess formation or perforation. There is mild diverticulosis of the proximal sigmoid colon. The prostate is normal in appearance. The urinary bladder is normal in appearance. There is no sign of pelvic or inguinal mass or adenopathy. There is a small fat containing right indirect inguinal hernia. The lung bases are clear. The osseous structures are normal in appearance for the patient`s age. IMPRESSION: CT of the abdomen shows moderate diverticulosis of the entire colon in the abdomen without diverticulitis. Slightly increased density in the majority of the dependent portion of the gallbladder, sludge versus small calculi. CT of the pelvis shows moderate acute diverticulitis involving a diverticulum arising from the midportion of the sigmoid colon. Mild diverticulosis of the proximal sigmoid colon. Please note that all CT scans at this facility use dose modulation, iterative reconstruction, and/or weight-based dosing when appropriate to reduce radiation dose to as low as reasonably achievable. Dictated by Alessandro Villar MD @ Nov 14 2018 6:38AM Signed by Dr. Alessandro Villar @ Nov 14 2018 6:44AM
[2018-11-14 07:26] VITALS: BP 144/93; PULSE 89
== END 2018-11-14 07:26 | disposition home or self-care (01) ==
LOC: MW.ED 05:27
DX: K57.92 Diverticulitis of intestine, part unspecified, without perforation or abscess without bleeding (principal); Z87.891 Personal history of nicotine dependence
CPT/HCPCS: 36415; 74176; 80053; 85025; 96360; 99284; J7040

== ENCOUNTER 2019-04-27 16:52 | Emergency (ER) | payer BC, OTHER ==
--- NOTE | 2019-04-27 17:26 | EDM.PDOC ---
ED HPI GENERAL MEDICAL PROBLEM - General Chief Complaint: Respiratory Problem Stated Complaint: CONGESTION,COUGH Time Seen by Provider: 04/27/19 17:16 Source of Information: Reports: Patient History Limitations: Reports: No Limitations - History of Present Illness INITIAL COMMENTS - FREE TEXT/NARRATIVE: HISTORY AND PHYSICAL: History of present illness: Patient is a 39-year-old male who presents to the ED today with concern of cough , generalized body aches, and chills off and on but denies fever over the past 3 weeks. Patient states initially started off as a cough and body aches but states that he has not improved. Patient states that he also has a lack of energy and states that he needs to sit down and rest even with short activity which is unusual for him. Patient denies any health history or any substance use. Patient denies any other symptoms or concerns. Patient denies fever, chest pain, shortness of breath. Denies headache, neck stiff ness, change in vision, syncope, or near syncope. Denies nausea, vomiting , abdominal pain, diarrhea, constipation, or dysuria. Has not noted any blood in urine or stool. Patient has been eating and drinking appropriately. Review of systems: As per history of present illness and below otherwise all systems reviewed and negative. Past medical history: As per history of present illness and as reviewed below otherwise noncontributory. Surgical history: As per history of present illness and as reviewed below otherwise noncontributory. Social history: See social history for further information Family history: As per history of present illness and as reviewed below otherwise noncontributory. Physical exam: General: Patient is alert, oriented, and in no acute distress. Patient sitting comfortably on exam table. HEENT: Atraumatic, normocephalic, pupils equal and reactive bilaterally, negative for conjunctival pallor or scleral icterus, mucous membranes moist, TMs normal bilaterally, throat clear, neck supple, nontender, trachea midline. No drooling or trismus noted. No meningeal signs. No hot potato voice noted. Lungs: Clear to auscultation, breath sounds equal bilaterally, chest nontender. Dry cough on exam. Heart: S1S2, regular rate and rhythm without overt murmur Abdomen: Soft, nondistended, nontender. Negative for masses or hepatosplenomegaly. Negative for costovertebral tenderness. Pelvis: Stable nontender. Genitourinary: Deferred. Rectal: Deferred. Skin: Intact, warm, dry. No lesions or rashes noted. Extremities: Atraumatic, negative for cords or calf pain. Neurovascular unremarkable. Neuro: Awake, alert, oriented. Cranial nerves II through XII unremarkable. Cerebellum unremarkable. Motor and sensory unremarkable throughout. Exam nonfocal. Notes: Discussed importance for follow-up with a primary care provider. Voices understanding and is agreeable to plan of care. Denies any further questions or concerns at this time. Diagnostics: EKG, CBC, CMP, UA, CXR, Trop, Influenza, Strep, ddimer Therapeutics: None Prescription: Medrol dose pack, Proair inhaler Impression: Cough Plan: 1. Take medication as prescribed. You can alternate ibuprofen and Tylenol as directed for pain and discomfort. 2. Follow-up with a primary care provider as discussed. Return to the ED as needed and as discussed. Definitive disposition and diagnosis as appropriate pending reevaluation and review of above. bodyaches Pain Score (Numeric/FACES): 8 - Related Data Allergies Allergy/AdvReac Type Severity Reaction Status Date / Time No Known Allergies Allergy Verified 04/27/19 17:18 Home Meds: Home Meds . [No Known Home Meds] 11/14/18 [History] Past Medical History - Past Health History Medical/Surgical History: Denies Medical/Surgical History HEENT History: Reports: None Cardiovascular History: Reports: None Respiratory History: Reports: None Gastrointestinal History: Reports: Helicobacter Pylori, Hiatal Hernia, Other ( See Below) Other Gastrointestinal History: gastroenteritis Genitourinary History: Reports: None Musculoskeletal History: Reports: None Neurological History: Reports: None Psychiatric History: Reports: None Endocrine/Metabolic History: Reports: None Hematologic History: Reports: None Immunologic History: Reports: None Oncologic (Cancer) History: Reports: None Dermatologic History: Reports: None - Infectious Disease History Infectious Disease History: Reports: None - Past Surgical History Head Surgeries/Procedures: Reports: None HEENT Surgical History: Reports: None Cardiovascular Surgical History: Reports: None Respiratory Surgical History: Reports: None GI Surgical History: Reports: None Male Surgical History: Reports: None Endocrine Surgical History: Reports: None Neurological Surgical History: Reports: None Musculoskeletal Surgical History: Reports: None Oncologic Surgical History: Reports: None Dermatological Surgical History: Reports: None Social & Family History - Family History Family Medical History: Noncontributory - Tobacco Use Smoking Status *Q: Former Smoker Used Tobacco, but Quit: Yes Month/Year Tobacco Last Used: 1.5 years - Caffeine Use Caffeine Use: Reports: None - Recreational Drug Use Recreational Drug Use: No ED ROS GENERAL - Review of Systems Review Of Systems: Comprehensive ROS is negative, except as noted in HPI. ED EXAM, GENERAL - Physical Exam Exam: See Below (see dictation) Course - Vital Signs Last Recorded V/S: Last Vital Signs Temp 97.4 F 04/27/19 17:17 Pulse 80 04/27/19 17:17 Resp 18 04/27/19 17:17 BP 152/120 H 04/27/19 17:17 Pulse Ox 95 04/27/19 17:17 - Orders/Labs/Meds Orders: Active Orders 24 hr Category Date Time Status EKG Documentation Completion [RC] STAT Care 04/27/19 17:24 Active CULTURE STREP A CONFIRMATION [RM] Stat Lab 04/27/19 17:25 Results STREP SCRN A RAPID W CULT CONF [RM] Stat Lab 04/27/19 17:25 Results Labs: Laboratory Tests 04/27/19 04/27/19 04/27/19 Range/Units 17:45 17:45 17:45 WBC 9.10 (4.0-11.0) K/uL RBC 4.73 (4.50-5.90) M/uL Hgb 14.3 (13.0-17.0) g/dL Hct 43.1 (38.0-50.0) % MCV 91.1 (80.0-98.0) fL MCH 30.2 (27.0-32.0) pg MCHC 33.2 (31.0-37.0) g/dL RDW Std Deviation 42.5 (28.0-62.0) fl RDW Coeff of Nu 13 (11.0-15.0) % Plt Count 214 (150-400) K/uL MPV 10.00 (7.40-12.00) fL Neut % (Auto) 54.5 (48.0-80.0) % Lymph % (Auto) 27.0 (16.0-40.0) % Carver % (Auto) 14.5 (0.0-15.0) % Eos % (Auto) 3.3 (0.0-7.0) % Baso % (Auto) 0.7 (0.0-1.5) % Neut # (Auto) 5.0 (1.4-5.7) K/uL Lymph # (Auto) 2.5 H (0.6-2.4) K/uL Carver # (Auto) 1.3 H (0.0-0.8) K/uL Eos # (Auto) 0.3 (0.0-0.7) K/uL Baso # (Auto) 0.1 (0.0-0.1) K/uL Nucleated RBC % 0.0 /100WBC Nucleated RBCs # 0 K/uL D-Dimer, Quantitative 0.30 (0.0-0.50) mg/L FEU Sodium 140 (136-148) mmol/L Potassium 3.9 (3.5-5.1) mmol/L Chloride 103 (98-107) mmol/L Carbon Dioxide 26.0 (21.0-32.0) mmol/L BUN 16 (7.0-18.0) mg/dL Creatinine 1.0 (0.8-1.3) mg/dL Est Cr Clr Drug Dosing 99.18 mL/min Estimated GFR (MDRD) > 60.0 ml/min Glucose 87 (74-106) mg/dL Calcium 9.2 (8.5-10.1) mg/dL Total Bilirubin 0.4 (0.2-1.0) mg/dL AST 28 (15-37) IU/L ALT 61 (14-63) IU/L Alkaline Phosphatase 98 (46-116) U/L Troponin I < 0.050 (0.000-0.056) ng/mL Total Protein 7.7 (6.4-8.2) g/dL Albumin 3.6 (3.4-5.0) g/dL Globulin 4.1 H (2.6-4.0) g/dL Albumin/Globulin Ratio 0.9 (0.9-1.6) Lipase 123 (73-393) U/L Urine Color Urine Appearance Urine pH (5.0-8.0) Ur Specific [place] (1.001-1.035) Urine Protein (NEGATIVE) mg/dL Urine Glucose (UA) (NEGATIVE) mg/dL Urine Ketones (NEGATIVE) mg/dL Urine Occult Blood (NEGATIVE) Urine Nitrite (NEGATIVE) Urine Bilirubin (NEGATIVE) Urine Urobilinogen (<2.0) EU/dL Ur Leukocyte Esterase (NEGATIVE) 04/27/19 Range/Units 18:15 WBC (4.0-11.0) K/uL RBC (4.50-5.90) M/uL Hgb (13.0-17.0) g/dL Hct (38.0-50.0) % MCV (80.0-98.0) fL MCH (27.0-32.0) pg MCHC (31.0-37.0) g/dL RDW Std Deviation (28.0-62.0) fl RDW Coeff of Nu (11.0-15.0) % Plt Count (150-400) K/uL MPV (7.40-12.00) fL Neut % (Auto) (48.0-80.0) % Lymph % (Auto) (16.0-40.0) % Carver % (Auto) (0.0-15.0) % Eos % (Auto) (0.0-7.0) % Baso % (Auto) (0.0-1.5) % Neut # (Auto) (1.4-5.7) K/uL Lymph # (Auto) (0.6-2.4) K/uL Carver # (Auto) (0.0-0.8) K/uL Eos # (Auto) (0.0-0.7) K/uL Baso # (Auto) (0.0-0.1) K/uL Nucleated RBC % /100WBC Nucleated RBCs # K/uL D-Dimer, Quantitative (0.0-0.50) mg/L FEU Sodium (136-148) mmol/L Potassium (3.5-5.1) mmol/L Chloride (98-107) mmol/L Carbon Dioxide (21.0-32.0) mmol/L BUN (7.0-18.0) mg/dL Creatinine (0.8-1.3) mg/dL Est Cr Clr Drug Dosing mL/min Estimated GFR (MDRD) ml/min Glucose (74-106) mg/dL Calcium (8.5-10.1) mg/dL Total Bilirubin (0.2-1.0) mg/dL AST (15-37) IU/L ALT (14-63) IU/L Alkaline Phosphatase (46-116) U/L Troponin I (0.000-0.056) ng/mL Total Protein (6.4-8.2) g/dL Albumin (3.4-5.0) g/dL Globulin (2.6-4.0) g/dL Albumin/Globulin Ratio (0.9-1.6) Lipase (73-393) U/L Urine Color YELLOW Urine Appearance CLEAR Urine pH 6.0 (5.0-8.0) Ur Specific [place] 1.025 (1.001-1.035) Urine Protein NEGATIVE (NEGATIVE) mg/dL Urine Glucose (UA) NEGATIVE (NEGATIVE) mg/dL Urine Ketones NEGATIVE (NEGATIVE) mg/dL Urine Occult Blood NEGATIVE (NEGATIVE) Urine Nitrite NEGATIVE (NEGATIVE) Urine Bilirubin NEGATIVE (NEGATIVE) Urine Urobilinogen 0.2 (<2.0) EU/dL Ur Leukocyte Esterase NEGATIVE (NEGATIVE) Departure - Departure Time of Disposition: 18:40 Disposition: Home, Self-Care 01 Clinical Impression: Cough - Discharge Information Referrals: PCP,None [Primary Care Provider] - Forms: ED Department Discharge Additional Instructions: The following information is given to patients seen in the emergency department who are being discharged to home. This information is to outline your options for follow-up care. We provide all patients seen in our emergency department with a follow-up referral. The need for follow-up, as well as the timing and circumstances, are variable depending upon the specifics of your emergency department visit. If you don't have a primary care physician on staff, we will provide you with a referral. We always advise you to contact your personal physician following an emergency department visit to inform them of the circumstance of the visit and for follow-up with them and/or the need for any referrals to a consulting specialist. The emergency department will also refer you to a specialist when appropriate. This referral assures that you have the opportunity for follow-up care with a specialist. All of these measure are taken in an effort to provide you with optimal care, which includes your follow-up. Under all circumstances we always encourage you to contact your private physician who remains a resource for coordinating your care. When calling for follow-up care, please make the office aware that this follow-up is from your recent emergency room visit. If for any reason you are refused follow-up, please contact the [facility] Emergency Department at and asked to speak to the emergency department charge nurse. [facility] [address] [place] [address] [facility] [address] [place] [id number] 1. Take medication as prescribed. You can alternate ibuprofen and Tylenol as directed for pain and discomfort. 2. Follow-up with a primary care provider as discussed. Return to the ED as needed and as discussed. Sepsis Event Note - Evaluation Sepsis Screening Result: No Definite Risk - Focused Exam Vital Signs: Vital Signs Temp Pulse Resp BP Pulse Ox 04/27/19 17:17 97.4 F 80 18 152/120 H 95 Date Exam was Performed: 04/27/19 Time Exam was Performed: 18:40 - My Orders Last 24 Hours: My Active Orders 04/27/19 17:24 EKG Documentation Completion [RC] STAT 04/27/19 17:25 CULTURE STREP A CONFIRMATION [RM] Stat STREP SCRN A RAPID W CULT CONF [RM] Stat - Assessment/Plan Last 24 Hours: My Active Orders 04/27/19 17:24 EKG Documentation Completion [RC] STAT 04/27/19 17:25 CULTURE STREP A CONFIRMATION [RM] Stat STREP SCRN A RAPID W CULT CONF [RM] Stat
[2019-04-27 18:15] LABS: BLOOD UREA NITROGEN,BUN 16 mg/dL (7.0-18.0); CHLORIDE,CL 103 mmol/L (98-107); GLUCOSE RANDOM 87 mg/dL (74-106); LIPASE 123 U/L (73-393); POTASSIUM,K 3.9 mmol/L (3.5-5.1); SODIUM,NA 140 mmol/L (136-148)
--- NOTE | 2019-04-27 18:16 | CR ---
Chest: 2 views of the chest were obtained. Comparison: No prior chest x-ray is available. Heart size and mediastinum are normal. Lungs are clear with no acute parenchymal change. Bony structures are unremarkable. Impression: 1. Nothing acute is appreciated on 2 view chest x-ray. Diagnostic code #1 This report was dictated in Mountain Standard Time
[2019-04-27 18:56] VITALS: BP 143/100; PULSE 79
== END 2019-04-27 19:02 | disposition home or self-care (01) ==
LOC: MW.ED 16:52
DX: R05 Cough (principal); Z87.891 Personal history of nicotine dependence
CPT/HCPCS: 36415; 71046; 71046-26; 80053; 81003; 83690; 84484; 85025; 85379; 87081; 87804; 87880-QW; 93005; 99283; 99284-25

== ENCOUNTER 2019-05-05 11:17 | Emergency (ER) | payer BC ==
[2019-05-05 11:41] VITALS: BP 157/85; PULSE 97
--- NOTE | 2019-05-05 11:51 | EDM.PDOC ---
ED HPI GENERAL MEDICAL PROBLEM - General Chief Complaint: General Stated Complaint: TOOTHACHE Time Seen by Provider: 05/05/19 11:51 Source of Information: Reports: Patient History Limitations: Reports: No Limitations - History of Present Illness Onset: Other (yesterday) Location: Reports: Other (left lower teeth) Quality: Reports: Sharp, Throbbing Severity: Moderate Improves with: Reports: None Worsens with: Reports: None Associated Symptoms: Reports: No Other Symptoms left head/face Pain Score (Numeric/FACES): 10 - Related Data Allergies Allergy/AdvReac Type Severity Reaction Status Date / Time No Known Allergies Allergy Verified 05/05/19 11:41 Home Meds: Home Meds Albuterol Sulfate [Proair Hfa] 8.5 gm IH Q8HR PRN #1 [email or web address] 04/27/19 [Rx] Amoxicillin/Potassium Clav [Augmentin 875-125 Tablet] 1 each PO BID 7 Days #14 tablet 05/05/19 [Rx] Past Medical History - Past Health History Medical/Surgical History: Denies Medical/Surgical History HEENT History: Reports: None Cardiovascular History: Reports: None Respiratory History: Reports: None Gastrointestinal History: Reports: Helicobacter Pylori, Hiatal Hernia, Other ( See Below) Other Gastrointestinal History: gastroenteritis Genitourinary History: Reports: None Musculoskeletal History: Reports: None Neurological History: Reports: None Psychiatric History: Reports: None Endocrine/Metabolic History: Reports: None Hematologic History: Reports: None Immunologic History: Reports: None Oncologic (Cancer) History: Reports: None Dermatologic History: Reports: None - Infectious Disease History Infectious Disease History: Reports: None - Past Surgical History Head Surgeries/Procedures: Reports: None HEENT Surgical History: Reports: None Cardiovascular Surgical History: Reports: None Respiratory Surgical History: Reports: None GI Surgical History: Reports: None Male Surgical History: Reports: None Endocrine Surgical History: Reports: None Neurological Surgical History: Reports: None Musculoskeletal Surgical History: Reports: None Oncologic Surgical History: Reports: None Dermatological Surgical History: Reports: None Social & Family History - Family History Family Medical History: Noncontributory - Tobacco Use Smoking Status *Q: Former Smoker Used Tobacco, but Quit: Yes Month/Year Tobacco Last Used: 2017 - Caffeine Use Caffeine Use: Reports: None - Recreational Drug Use Recreational Drug Use: No ED ROS GENERAL - Review of Systems Review Of Systems: See Below Constitutional: Reports: No Symptoms HEENT: Reports: Other (tooth ache) Cardiovascular: Reports: No Symptoms Endocrine: Reports: No Symptoms GI/Abdominal: Reports: No Symptoms : Reports: No Symptoms Musculoskeletal: Reports: No Symptoms Skin: Reports: No Symptoms ED EXAM, GENERAL - Physical Exam Exam: See Below Exam Limited By: No Limitations General Appearance: Alert, WD/WN, No Apparent Distress Ears: Normal External Exam, Normal Canal, Hearing Grossly Normal, Normal TMs Ear Exam: Bilateral Ear: Auricle Normal, Canal Normal, TM normal Nose: Normal Inspection, Normal Mucosa, No Blood Throat/Mouth: Other (multiple dental caries worse with tooth #14 left lower second molar. Periodental disease noted) Head: Atraumatic, Normocephalic Neck: Normal Inspection, Supple, Non-Tender, Full Range of Motion Respiratory/Chest: No Respiratory Distress, Lungs Clear, Normal Breath Sounds, No Accessory Muscle Use, Chest Non-Tender Cardiovascular: Normal Peripheral Pulses, Regular Rate, Rhythm GI/Abdominal: Normal Bowel Sounds, Soft, Non-Tender, No Organomegaly, No Distention, No Abnormal Bruit, No Mass (Male) Exam: Deferred Rectal (Males) Exam: Deferred Back Exam: Normal Inspection Extremities: Normal Inspection, Normal Range of Motion Neurological: Alert, Oriented, CN II-XII Intact, Normal Reflexes Skin Exam: Warm, Dry, Intact, Normal Color, No Rash Lymphatic: No Adenopathy Course - Vital Signs Text/Narrative:: I examined the patient and he has infection of the 14 tooth (left second molar) . He will be discharged. He agrees with the discharge plan. Last Recorded V/S: Last Vital Signs Temp 97.0 F 05/05/19 11:40 Pulse 97 05/05/19 11:40 Resp 16 05/05/19 11:40 BP 157/85 H 05/05/19 11:40 Pulse Ox 96 05/05/19 11:40 - Orders/Labs/Meds Meds: Medications Discontinued Medications Generic Name Dose Route Start Last Admin Trade Name Freq PRN Reason Stop Dose Admin Benzocaine 2 each 05/05/19 12:23 Hurricaine One 20% MUCMEM 05/05/19 12:24 ONETIME ONE Ketorolac Tromethamine 60 mg 05/05/19 12:23 Toradol IM 03/17/20 12:24 ONETIME ONE Lidocaine HCl 15 ml 05/05/19 12:23 Xylocaine 2% Viscous PO 05/05/19 12:24 ONETIME ONE Departure - Departure Time of Disposition: 12:55 Disposition: Home, Self-Care 01 Clinical Impression: Dental abscess, Dentalgia - Discharge Information *PRESCRIPTION DRUG MONITORING PROGRAM REVIEWED*: Yes *COPY OF PRESCRIPTION DRUG MONITORING REPORT IN PATIENT JULIANNA: Yes Prescriptions: Amoxicillin/Potassium Clav [Augmentin 875-125 Tablet] 1 each PO BID 7 Days #14 tablet Instructions: Dental Abscess, Preventive Dental Care, Adult, Diet and Dental Disease Referrals: PCP,None [Primary Care Provider] - Forms: ED Department Discharge Additional Instructions: The following information is given to patients seen in the emergency department who are being discharged to home. This information is to outline your options for follow-up care. We provide all patients seen in our emergency department with a follow-up referral. The need for follow-up, as well as the timing and circumstances, are variable depending upon the specifics of your emergency department visit. If you don't have a primary care physician on staff, we will provide you with a referral. We always advise you to contact your personal physician following an emergency department visit to inform them of the circumstance of the visit and for follow-up with them and/or the need for any referrals to a consulting specialist. The emergency department will also refer you to a specialist when appropriate. This referral assures that you have the opportunity for follow-up care with a specialist. All of these measure are taken in an effort to provide you with optimal care, which includes your follow-up. Under all circumstances we always encourage you to contact your private physician who remains a resource for coordinating your care. When calling for follow-up care, please make the office aware that this follow-up is from your recent emergency room visit. If for any reason you are refused follow-up, please contact the [facility] Emergency Department at and asked to speak to the emergency department charge nurse. [facility] [address] [place] [id number] [address] [id number] Take antibiotic as instructed Use dental balls and alternate Tylenol and ibuprofen as needed Follow-up with dentist Return to ED as needed as discussed Sepsis Event Note - Evaluation Sepsis Screening Result: No Definite Risk - Focused Exam Vital Signs: Vital Signs Temp Pulse Resp BP Pulse Ox 05/05/19 11:40 97.0 F 97 16 157/85 H 96 Date Exam was Performed: 05/05/19 Time Exam was Performed: 12:50
[2019-05-05] MEDS ORDERED: Benzocaine 20% Topical Spray UD MUCMEM ONE (12:23)
[2019-05-05] MEDS ORDERED: Ketorolac 60 MG/2 ML SDV IM ONE (12:23)
[2019-05-05] MEDS ORDERED: Lidocaine 2% Viscous Solution 15 ML Cup PO ONE (12:23)
--- NOTE | 2019-05-05 12:23 | EDM.PDOC ---
ED HPI GENERAL MEDICAL PROBLEM - General Chief Complaint: General Stated Complaint: TOOTHACHE Time Seen by Provider: 05/05/19 11:51 Source of Information: Reports: Patient History Limitations: Reports: No Limitations - History of Present Illness INITIAL COMMENTS - FREE TEXT/NARRATIVE: HISTORY AND PHYSICAL: History of present illness: [] Review of systems: As per history of present illness and below otherwise all systems reviewed and negative. Past medical history: As per history of present illness and as reviewed below otherwise noncontributory. Surgical history: As per history of present illness and as reviewed below otherwise noncontributory. Social history: No reported history of drug or alcohol abuse. Family history: As per history of present illness and as reviewed below otherwise noncontributory. Physical exam: General: Patient sitting comfortably in no acute distress and nontoxic appearing HEENT: Atraumatic, normocephalic, pupils reactive, negative for conjunctival pallor or scleral icterus, mucous membranes moist, throat clear, neck supple, nontender, trachea midline. No meningeal signs. Lungs: Clear to auscultation, breath sounds equal bilaterally, chest nontender. Heart: S1S2, regular, negative for clicks, rubs, or overt murmur. Abdomen: Soft, nondistended, nontender. Negative for masses or hepatosplenomegaly. Negative for costovertebral tenderness. No rigidity, rebound , guarding. Pelvis: Stable nontender. Genitourinary: Deferred. Rectal: Deferred. Extremities: Atraumatic, negative for cords or calf pain. Neurovascular unremarkable. Neuro: Awake, alert, oriented. Cranial nerves II through XII unremarkable. Cerebellum unremarkable. Motor and sensory unremarkable throughout. Exam nonfocal. Notes: Diagnostics: [] Therapeutics: [] Prescriptions: Impression: [] Plan: Take antibiotic as instructed Use dental balls and alternate Tylenol and ibuprofen as needed Follow-up with dentist Return to ED as needed as discussed Definitive disposition and diagnosis as appropriate pending reevaluation and review of above. left head/face Pain Score (Numeric/FACES): 10 - Related Data Allergies Allergy/AdvReac Type Severity Reaction Status Date / Time No Known Allergies Allergy Verified 05/05/19 11:41 Home Meds: Home Meds Albuterol Sulfate [Proair Hfa] 8.5 gm IH Q8HR PRN #1 [id number] 04/27/19 [Rx] Amoxicillin/Potassium Clav [Augmentin 875-125 Tablet] 1 each PO BID 7 Days #14 tablet 05/05/19 [Rx] Past Medical History - Past Health History Medical/Surgical History: Denies Medical/Surgical History HEENT History: Reports: None Cardiovascular History: Reports: None Respiratory History: Reports: None Gastrointestinal History: Reports: Helicobacter Pylori, Hiatal Hernia, Other ( See Below) Other Gastrointestinal History: gastroenteritis Genitourinary History: Reports: None Musculoskeletal History: Reports: None Neurological History: Reports: None Psychiatric History: Reports: None Endocrine/Metabolic History: Reports: None Hematologic History: Reports: None Immunologic History: Reports: None Oncologic (Cancer) History: Reports: None Dermatologic History: Reports: None - Infectious Disease History Infectious Disease History: Reports: None - Past Surgical History Head Surgeries/Procedures: Reports: None HEENT Surgical History: Reports: None Cardiovascular Surgical History: Reports: None Respiratory Surgical History: Reports: None GI Surgical History: Reports: None Male Surgical History: Reports: None Endocrine Surgical History: Reports: None Neurological Surgical History: Reports: None Musculoskeletal Surgical History: Reports: None Oncologic Surgical History: Reports: None Dermatological Surgical History: Reports: None Social & Family History - Family History Family Medical History: Noncontributory - Tobacco Use Smoking Status *Q: Former Smoker Used Tobacco, but Quit: Yes Month/Year Tobacco Last Used: 2017 - Caffeine Use Caffeine Use: Reports: None - Recreational Drug Use Recreational Drug Use: No Course - Vital Signs Last Recorded V/S: Last Vital Signs Temp 97.0 F 05/05/19 11:40 Pulse 97 05/05/19 11:40 Resp 16 05/05/19 11:40 BP 157/85 H 05/05/19 11:40 Pulse Ox 96 05/05/19 11:40 - Orders/Labs/Meds Orders: Active Orders 24 hr Category Date Time Status Benzocaine [Hurricaine One 20%] Med 05/05/19 12:23 Once 2 each MUCMEM ONETIME ONE Ketorolac [Toradol] Med 05/05/19 12:23 Once 60 mg IM ONETIME ONE Lidocaine 2% [Xylocaine 2% Viscous] Med 05/05/19 12:23 Once 15 ml PO ONETIME ONE Medication Orders Benzocaine (Hurricaine One 20%) 2 each MUCMEM ONETIME ONE Stop: 05/05/19 12:24 Ketorolac Tromethamine (Toradol) 60 mg IM ONETIME ONE Stop: 05/05/19 12:24 Lidocaine HCl (Xylocaine 2% Viscous) 15 ml PO ONETIME ONE Stop: 05/05/19 12:24 Meds: Medications Generic Name Dose Route Start Last Admin Trade Name Lissette PRN Reason Stop Dose Admin Benzocaine 2 each 05/05/19 12:23 Hurricaine One 20% MUCMEM 05/05/19 12:24 ONETIME ONE Ketorolac Tromethamine 60 mg 05/05/19 12:23 Toradol IM 05/05/19 12:24 ONETIME ONE Lidocaine HCl 15 ml 05/05/19 12:23 Xylocaine 2% Viscous PO 05/05/19 12:24 ONETIME ONE Departure - Departure Time of Disposition: 12:24 Disposition: Home, Self-Care 01 Condition: Good Clinical Impression: Dental abscess, Dentalgia - Discharge Information Prescriptions: Amoxicillin/Potassium Clav [Augmentin 875-125 Tablet] 1 each PO BID 7 Days #14 tablet Referrals: PCP,None [Primary Care Provider] - Forms: ED Department Discharge Additional Instructions: The following information is given to patients seen in the emergency department who are being discharged to home. This information is to outline your options for follow-up care. We provide all patients seen in our emergency department with a follow-up referral. The need for follow-up, as well as the timing and circumstances, are variable depending upon the specifics of your emergency department visit. If you don't have a primary care physician on staff, we will provide you with a referral. We always advise you to contact your personal physician following an emergency department visit to inform them of the circumstance of the visit and for follow-up with them and/or the need for any referrals to a consulting specialist. The emergency department will also refer you to a specialist when appropriate. This referral assures that you have the opportunity for follow-up care with a specialist. All of these measure are taken in an effort to provide you with optimal care, which includes your follow-up. Under all circumstances we always encourage you to contact your private physician who remains a resource for coordinating your care. When calling for follow-up care, please make the office aware that this follow-up is from your recent emergency room visit. If for any reason you are refused follow-up, please contact the [facility] Emergency Department at and asked to speak to the emergency department charge nurse. [facility] [address] [place] [address] [id number] Take antibiotic as instructed Use dental balls and alternate Tylenol and ibuprofen as needed Follow-up with dentist Return to ED as needed as discussed Sepsis Event Note - Evaluation Sepsis Screening Result: No Definite Risk - Focused Exam Vital Signs: Vital Signs Temp Pulse Resp BP Pulse Ox 05/05/19 11:40 97.0 F 97 16 157/85 H 96 Date Exam was Performed: 05/05/19 Time Exam was Performed: 12:24 - My Orders Last 24 Hours: My Active Orders 05/05/19 12:23 Benzocaine [Hurricaine One 20%] 2 each MUCMEM ONETIME ONE Ketorolac [Toradol] 60 mg IM ONETIME ONE Lidocaine 2% [Xylocaine 2% Viscous] 15 ml PO ONETIME ONE - Assessment/Plan Last 24 Hours: My Active Orders 05/05/19 12:23 Benzocaine [Hurricaine One 20%] 2 each MUCMEM ONETIME ONE Ketorolac [Toradol] 60 mg IM ONETIME ONE Lidocaine 2% [Xylocaine 2% Viscous] 15 ml PO ONETIME ONE
== END 2019-05-05 13:15 | disposition home or self-care (01) ==
LOC: MW.ED 11:17
DX: K04.7 Periapical abscess without sinus (principal); K02.9 Dental caries, unspecified; Z87.891 Personal history of nicotine dependence
CPT/HCPCS: 96372; 99282; A9270; J1885

== ENCOUNTER 2019-11-05 17:42 | Emergency (ER) | payer BC ==
--- NOTE | 2019-11-05 17:46 | EDM.PDOC ---
<Dayton Singer Laureen - Last Filed: 11/05/19 20:57> ED HPI GENERAL MEDICAL PROBLEM - General Chief Complaint: Respiratory Problem Stated Complaint: SHORTNESS OF BREATH Time Seen by Provider: 11/05/19 17:43 - Related Data Allergies Allergy/AdvReac Type Severity Reaction Status Date / Time No Known Allergies Allergy Verified 11/05/19 17:48 Home Meds: Home Meds oxyCODONE HCl/Acetaminophen [Percocet 5-325 mg Tablet] 1 each PO Q4H PRN #18 tablet 11/05/19 [Rx] Course - Re-Assessments/Exams Free Text/Narrative Re-Assessment/Exam: 11/05/19 20:57 Patient with non-diagnostic study on CT imaging. D-dimer was added which is elevated at 0.6. I explained all of this to patient, and he does not want to stay for further testing as he is feeling much better. His vitals signs have normalized with HR in 90s during our conversation. I explained to the patient that we cannot rule out a blood clot, but he does not want to stay. I will not make him AMA as PE is less likely considering he has known injury to the area today and his HR has normalized. However he was urged to come back to ER for any worsening symptoms, development of SOB, passing out, worsening pain, or coughing up blood. He demonstrates good health literacy and understands the risks and return precautions. Departure - Departure Time of Disposition: 20:49 Disposition: Home, Self-Care 01 Clinical Impression: Back pain Qualifiers: Back pain location: thoracic back pain Chronicity: acute Back pain laterality: right Qualified Code(s): M54.6 - Pain in thoracic spine - Discharge Information Prescriptions: oxyCODONE HCl/Acetaminophen [Percocet 5-325 mg Tablet] 1 each PO Q4H PRN #18 tablet PRN Reason: Pain Instructions: Acute Back Pain, Adult, Pulmonary Nodule Referrals: PCP,None [Primary Care Provider] - Forms: ED Department Discharge Additional Instructions: The following information is given to patients seen in the emergency department who are being discharged to home. This information is to outline your options for follow-up care. We provide all patients seen in our emergency department with a follow-up referral. The need for follow-up, as well as the timing and circumstances, are variable depending upon the specifics of your emergency department visit. If you don't have a primary care physician on staff, we will provide you with a referral. We always advise you to contact your personal physician following an emergency department visit to inform them of the circumstance of the visit and for follow-up with them and/or the need for any referrals to a consulting specialist. The emergency department will also refer you to a specialist when appropriate. This referral assures that you have the opportunity for follow-up care with a specialist. All of these measure are taken in an effort to provide you with optimal care, which includes your follow-up. Under all circumstances we always encourage you to contact your private physician who remains a resource for coordinating your care. When calling for follow-up care, please make the office aware that this follow-up is from your recent emergency room visit. If for any reason you are refused follow-up, please contact the [facility] Emergency Department at and asked to speak to the emergency department charge nurse. Please follow up with your primary care physician. If you do not have a primary care physician, see below: [facility] [address] [place] [id number] [facility] [address] [place] [id number] scan: Your CT scan revealed an incidental finding of a 6-mm pulmonary nodule in your left upper lobe lung. Pulmonary nodules are most often benign findings and are usually not a cause for concern, however they can be related to lung cancer. It is important to mention this abnormality to your primary care physician as she or he may want to repeat a CT scan in several months to ensure the pulmonary nodule is not changing. We were unable to rule out a blood clot in your lungs due to too much movement on your CT scan. You were offered admission to stay and have this worked up. If you develop worsening chest pain, difficulty breathing, or coughing blood, come back to the ER immediately. <Ilia Rivers - Last Filed: 11/06/19 08:39> ED HPI GENERAL MEDICAL PROBLEM - General Source of Information: Reports: Patient History Limitations: Reports: No Limitations - History of Present Illness INITIAL COMMENTS - FREE TEXT/NARRATIVE: 39-year-old male with a past medical history of kidney stones and H. pylori gastritis presenting with back pain and chest pain. Patient reports 2-day history of right-sided midthoracic back pain. 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 This afternoon, he was doing some heavy lifting when he felt sudden onset of severe right-sided chest pain near the costal margin. He feels that pain is radiating around from the right side of his back to the right anterior chest wall. Does report severe chest pain with breathing and states that it is hard to breathe. Denies any history of blunt trauma. Patient denies history of venous thromboembolism, lower extremity pain or swelling, hemoptysis, recent surgery or immobilization or long travel, history of active malignancy, or hormonal medication/product usage. Denies fever, chills, hemoptysis, dysuria, urinary frequency, or hematuria. ROS: A 10-point review of systems was negative, except as noted in the HPI (or in the ROS section of this note). Past medical history: Reviewed, no additional pertinent history. Surgical history: Reviewed in system, no additional pertinent history. Social history: Reviewed in system, no additional pertinent history. Family history: Reviewed in system, no additional pertinent history. PHYSICAL EXAM Vital signs reviewed. Nursing notes reviewed. Constitutional: Awake, alert, non-distressed. Appears very uncomfortable. Head: Normocephalic, atraumatic. Eyes: EOMI, conjunctiva normal, no discharge, no scleral icterus. Ears, Nose, Throat: External ears and nose normal, moist oral mucosa. Cardiovascular: Tachycardic, 2+ radial pulse, capillary refill less than 2 seconds. Pulmonary: normal work of breathing, no accessory muscle use. CTA BL Abdomen/GI: Soft, nontender, nondistended, no guarding or rigidity, no masses. Musculoskeletal: No deformities. Back: Moderate tenderness to the right flank, right lateral chest wall, and the right costal margin. Integumentary: Appropriate color for ethnicity, warm, dry, no pallor or jaundice, no rash. Neurologic: Alert, answering questions appropriately, normal speech, no facial d phani, moving all extremities well. Psychiatric: Appropriate mood and affect, normal thought process. Right Back Pain Score (Numeric/FACES): 10 Past Medical History - Past Health History Medical/Surgical History: Denies Medical/Surgical History HEENT History: Reports: None Cardiovascular History: Reports: None Respiratory History: Reports: None Gastrointestinal History: Reports: Helicobacter Pylori, Hiatal Hernia, Other (See Below) Other Gastrointestinal History: gastroenteritis Genitourinary History: Reports: None Musculoskeletal History: Reports: None Neurological History: Reports: None Psychiatric History: Reports: None Endocrine/Metabolic History: Reports: None Hematologic History: Reports: None Immunologic History: Reports: None Oncologic (Cancer) History: Reports: None Dermatologic History: Reports: None - Infectious Disease History Infectious Disease History: Reports: None - Past Surgical History Head Surgeries/Procedures: Reports: None HEENT Surgical History: Reports: None Cardiovascular Surgical History: Reports: None Respiratory Surgical History: Reports: None GI Surgical History: Reports: None Male Surgical History: Reports: None Endocrine Surgical History: Reports: None Neurological Surgical History: Reports: None Musculoskeletal Surgical History: Reports: None Oncologic Surgical History: Reports: None Dermatological Surgical History: Reports: None Social & Family History - Family History Family Medical History: Noncontributory - Caffeine Use Caffeine Use: Reports: None ED ROS GENERAL - Review of Systems Review Of Systems: See Below ED EXAM, GENERAL - Physical Exam Exam: See Below ED RESPIRATORY PROCEDURES - Additional/Other Procedure(s) Other (Free Text) Procedure(s): Procedure: Bedside [id number]-[id number] ultrasound, renal Location: Right kidney Windows: Transverse, longitudinal Indication: Severe right lower back/flank pain Findings: No right-sided hydronephrosis Impression: Normal study EKG INTERPRETATION EKG Interpretation Comments: 12-Lead ECG Interpretation Acquired: 5:54 PM Rhythm: Sinus tachycardia Rate: 110 bpm Lewis: Normal Intervals: Normal Ectopy: None Ischemic Changes: None apparent RV Strain: No obvious RV strain pattern. ST Segments/T-Waves: No notable changes Interpretation: Unremarkable Course - Vital Signs Text/Narrative:: 39/M with severe right-sided flank/thoracic back pain and right anterior chest pain, worse with breathing. DDX: considered muscle strain, PE, kidney stone, pneumothorax, early Zoster, etc. Ordered IV access, labs, urinalysis, ECG, pain medications, chest x-rays, CT pulmonary angiogram. Pending at shift change. Refer to Dr. Singer's note for the disposition and discharge diagnosis/planning. Last Recorded V/S: Last Vital Signs Temp 37.2 C 11/05/19 17:48 Pulse 95 11/05/19 21:20 Resp 18 11/05/19 21:20 BP 125/96 H 11/05/19 21:20 Pulse Ox 97 11/05/19 21:20 - Orders/Labs/Meds Orders: Active Orders 24 hr Category Date Time Status Saline Lock Insert [OM.PC] Stat Oth 11/05/19 17:54 Ordered Labs: Laboratory Tests 11/05/19 11/05/19 11/05/19 Range/Units 18:09 18:09 18:09 WBC 9.84 (4.0-11.0) K/uL RBC 4.65 (4.50-5.90) M/uL Hgb 14.3 (13.0-17.0) g/dL Hct 43.5 (38.0-50.0) % MCV 93.5 (80.0-98.0) fL MCH 30.8 (27.0-32.0) pg MCHC 32.9 (31.0-37.0) g/dL RDW Std Deviation 44.9 (28.0-62.0) fl RDW Coeff of Nu 13 (11.0-15.0) % Plt Count 177 (150-400) K/uL MPV 10.20 (7.40-12.00) fL Neut % (Auto) 60.7 (48.0-80.0) % Lymph % (Auto) 24.4 (16.0-40.0) % Cedar % (Auto) 12.6 (0.0-15.0) % Eos % (Auto) 1.9 (0.0-7.0) % Baso % (Auto) 0.4 (0.0-1.5) % Neut # (Auto) 6.0 H (1.4-5.7) K/uL Lymph # (Auto) 2.4 (0.6-2.4) K/uL Cedar # (Auto) 1.2 H (0.0-0.8) K/uL Eos # (Auto) 0.2 (0.0-0.7) K/uL Baso # (Auto) 0.0 (0.0-0.1) K/uL Nucleated RBC % 0.0 /100WBC Nucleated RBCs # 0 K/uL D-Dimer, Quantitative 0.64 H (0.0-0.50) mg/L FEU Sodium 139 (136-148) mmol/L Potassium 4.2 (3.5-5.1) mmol/L Chloride 104 (98-107) mmol/L Carbon Dioxide 22.7 (21.0-32.0) mmol/L BUN 21 H (7.0-18.0) mg/dL Creatinine 1.3 (0.8-1.3) mg/dL Est Cr Clr Drug Dosing 78.77 mL/min Estimated GFR (MDRD) > 60.0 ml/min Glucose 82 (74-106) mg/dL Calcium 9.6 (8.5-10.1) mg/dL Total Bilirubin 0.7 (0.2-1.0) mg/dL AST 92 H (15-37) IU/L ALT 161 H (14-63) IU/L Alkaline Phosphatase 110 (46-116) U/L Troponin I < 0.050 (0.000-0.056) ng/mL Total Protein 8.3 H (6.4-8.2) g/dL Albumin 4.1 (3.4-5.0) g/dL Globulin 4.2 H (2.6-4.0) g/dL Albumin/Globulin Ratio 1.0 (0.9-1.6) Urine Color Urine Appearance Urine pH (5.0-8.0) Ur Specific Freeburn (1.001-1.035) Urine Protein (NEGATIVE) mg/dL Urine Glucose (UA) (NEGATIVE) mg/dL Urine Ketones (NEGATIVE) mg/dL Urine Occult Blood (NEGATIVE) Urine Nitrite (NEGATIVE) Urine Bilirubin (NEGATIVE) Urine Urobilinogen (<2.0) EU/dL Ur Leukocyte Esterase (NEGATIVE) 11/05/19 Range/Units 19:40 WBC (4.0-11.0) K/uL RBC (4.50-5.90) M/uL Hgb (13.0-17.0) g/dL Hct (38.0-50.0) % MCV (80.0-98.0) fL MCH (27.0-32.0) pg MCHC (31.0-37.0) g/dL RDW Std Deviation (28.0-62.0) fl RDW Coeff of Nu (11.0-15.0) % Plt Count (150-400) K/uL MPV (7.40-12.00) fL Neut % (Auto) (48.0-80.0) % Lymph % (Auto) (16.0-40.0) % Cedar % (Auto) (0.0-15.0) % Eos % (Auto) (0.0-7.0) % Baso % (Auto) (0.0-1.5) % Neut # (Auto) (1.4-5.7) K/uL Lymph # (Auto) (0.6-2.4) K/uL Cedar # (Auto) (0.0-0.8) K/uL Eos # (Auto) (0.0-0.7) K/uL Baso # (Auto) (0.0-0.1) K/uL Nucleated RBC % /100WBC Nucleated RBCs # K/uL D-Dimer, Quantitative (0.0-0.50) mg/L FEU Sodium (136-148) mmol/L Potassium (3.5-5.1) mmol/L Chloride (98-107) mmol/L Carbon Dioxide (21.0-32.0) mmol/L BUN (7.0-18.0) mg/dL Creatinine (0.8-1.3) mg/dL Est Cr Clr Drug Dosing mL/min Estimated GFR (MDRD) ml/min Glucose (74-106) mg/dL Calcium (8.5-10.1) mg/dL Total Bilirubin (0.2-1.0) mg/dL AST (15-37) IU/L ALT (14-63) IU/L Alkaline Phosphatase (46-116) U/L Troponin I (0.000-0.056) ng/mL Total Protein (6.4-8.2) g/dL Albumin (3.4-5.0) g/dL Globulin (2.6-4.0) g/dL Albumin/Globulin Ratio (0.9-1.6) Urine Color YELLOW Urine Appearance CLEAR Urine pH 7.5 (5.0-8.0) Ur Specific Freeburn 1.015 (1.001-1.035) Urine Protein NEGATIVE (NEGATIVE) mg/dL Urine Glucose (UA) NEGATIVE (NEGATIVE) mg/dL Urine Ketones 15 H (NEGATIVE) mg/dL Urine Occult Blood NEGATIVE (NEGATIVE) Urine Nitrite NEGATIVE (NEGATIVE) Urine Bilirubin NEGATIVE (NEGATIVE) Urine Urobilinogen 0.2 (<2.0) EU/dL Ur Leukocyte Esterase NEGATIVE (NEGATIVE) Meds: Medications Discontinued Medications Generic Name Dose Route Start Last Admin Trade Name Freq PRN Reason Stop Dose Admin Acetaminophen 1,000 mg 11/05/19 18:17 11/05/19 18:23 Tylenol Extra Strength PO 11/05/19 18:18 1,000 mg ONETIME ONE Administration Fentanyl 100 mcg 11/05/19 18:17 11/05/19 18:24 Fentanyl IVPUSH 11/05/19 18:18 100 mcg ONETIME ONE Administration Lactated Ringer's 1,000 mls @ 999 mls/hr 11/05/19 18:17 11/05/19 18:23 Ringers, Lactated IV 11/05/19 19:17 999 mls/hr .BOLUS ONE Administration Ibuprofen 400 mg 11/05/19 18:17 11/05/19 18:23 Motrin PO 11/05/19 18:18 400 mg ONETIME ONE Administration Iopamidol 125 ml 11/05/19 19:46 11/05/19 19:47 Isovue Multipack-370 (76%) IVPUSH 11/05/19 19:47 125 ml ONETIME STA Administration Lidocaine 700 mg 11/05/19 18:17 11/05/19 18:24 Lidoderm 5% TOP 11/05/19 18:18 700 mg ONETIME ONE Administration Sodium Chloride 10 ml 11/05/19 17:54 11/05/19 18:24 Saline Flush FLUSH 10 ml ASDIRECTED PRN Administration Keep Vein Open Sodium Chloride 2.5 ml 11/05/19 17:54 11/05/19 18:25 Saline Flush FLUSH 2.5 ml ASDIRECTED PRN Administration Keep Vein Open Sepsis Event Note (ED) - Focused Exam Vital Signs: Vital Signs Pulse Resp BP Pulse Ox 11/05/19 21:20 95 18 125/96 H 97 - My Orders Last 24 Hours: My Active Orders 11/05/19 17:54 Saline Lock Insert [OM.PC] Stat - Assessment/Plan Last 24 Hours: My Active Orders 11/05/19 17:54 Saline Lock Insert [OM.PC] Stat
[2019-11-05] MEDS ORDERED: Sodium Chloride 0.9% 2.5 ML Syringe FLUSH PRN (17:54)
[2019-11-05] MEDS ORDERED: Sodium Chloride 0.9% 10 ML Syringe FLUSH PRN (17:54)
[2019-11-05] MEDS ORDERED: Lidocaine 5% 700 MG Patch TOP ONE (18:17)
[2019-11-05] MEDS ORDERED: fentaNYL 50 MCG/ML SDV IVPUSH ONE (18:17)
[2019-11-05] MEDS ORDERED: Acetaminophen 500 MG Tab PO ONE (18:17)
[2019-11-05] MEDS ORDERED: Ibuprofen 400 MG Tab PO ONE (18:17)
[2019-11-05] MEDS ORDERED: Lactated Ringers 1,000 ML IV ONE (18:17)
[2019-11-05 18:43] LABS: BLOOD UREA NITROGEN,BUN 21 mg/dL (7.0-18.0); CARBON DIOXIDE,CO2 22.7 mmol/L (21.0-32.0); CHLORIDE,CL 104 mmol/L (98-107); GLUCOSE RANDOM 82 mg/dL (74-106); POTASSIUM,K 4.2 mmol/L (3.5-5.1); SODIUM,NA 139 mmol/L (136-148)
[2019-11-05] MEDS ORDERED: Iopamidol 755 MG/ML 500 ML Multipack Bottle IVPUSH STA (19:46)
--- NOTE | 2019-11-05 19:56 | CT ---
CT chest Technique: Multiple axial sections through the chest were obtained. Intravenous contrast was utilized. Comparison: Prior chest x-ray performed earlier on the same day (7:28 PM). Findings: Pulmonary arteries are not opacified well enough to make any comment about pulmonary embolism. Fatty infiltration is seen within the liver. Other visualized upper abdominal structures shows no discrete abnormality. No pericardial thickening is seen. Aorta shows no aneurysm. Small nodule noted within the left upper chest which shows no calcification. This measures 6 mm in size. No additional nodule is identified. Lungs show no acute parenchymal change. Bone window settings were reviewed which shows no acute osseous finding. Impression: 1. 6 mm nodule within the left upper chest. Recommend repeat noncontrast chest CT study in one year. 2. Nondiagnostic study for pulmonary embolism. 3. Fatty infiltration within the liver. 4. Nothing acute is appreciated on CT study of the chest. Diagnostic code #9 This report was dictated in MDT
--- NOTE | 2019-11-05 19:57 | CR ---
Chest: Chest were obtained. Comparison: Prior chest x-ray of 04/27/19. Heart size and mediastinum are normal. Lungs are clear with no acute parenchymal change. Bony structures are unremarkable for the patient's age. Impression: 1. Nothing acute is seen on 2 view chest x-ray. Diagnostic code #1 This report was dictated in MDT
[2019-11-05 22:02] VITALS: BP 125/96; PULSE 95
== END 2019-11-05 21:20 | disposition home or self-care (01) ==
LOC: MW.ED 17:42
DX: M54.6 Pain in thoracic spine (principal)
CPT/HCPCS: 36415; 71046; 71275; 80053; 81003; 84484; 85025; 85379; 93005; 96361; 96374; 99285; A9270; J3010; J7120; Q9967; 99284

== ENCOUNTER 2019-11-25 13:34 | Emergency (ER) | payer SELFPAY ==
[2019-11-25 13:44] VITALS: BP 143/80; PULSE 85
[2019-11-25] MEDS ORDERED: Sodium Chloride 0.9% 1,000 ML IV ONE (14:05)
[2019-11-25] MEDS ORDERED: Sodium Chloride 0.9% 10 ML Syringe FLUSH PRN (14:05)
[2019-11-25] MEDS ORDERED: Sodium Chloride 0.9% 2.5 ML Syringe FLUSH PRN (14:05)
[2019-11-25] MEDS ORDERED: Ondansetron 4 MG/2 ML SDV IVPUSH ONE (14:05)
[2019-11-25] MEDS ORDERED: Dicyclomine 10 MG Cap PO ONE (14:06)
[2019-11-25] MEDS ORDERED: Famotidine 20 MG/2 ML SDV IVPUSH ONE (14:06)
--- NOTE | 2019-11-25 14:10 | EDM.PDOC ---
ED HPI GENERAL MEDICAL PROBLEM - General Chief Complaint: Abdominal Pain Stated Complaint: UPPER RT SIDE PAIN Time Seen by Provider: 11/25/19 13:35 - History of Present Illness INITIAL COMMENTS - FREE TEXT/NARRATIVE: History of present illness: Patient presents with right upper quadrant abdominal pains been present off and on for the last 2 weeks been getting worse last 2 days some nausea no vomiting no diarrhea no constipation movement makes it worse being still makes it better eating fatty foods makes it worse. He supposedly had some elevated liver enzymes on a previous emergency department visit he followed with his primary care doctor and had an ultrasound done of the right upper quadrant which supposedly showed inflammation of the liver per the patient. He denies any fever chills sore throat no leg pain or leg swelling no difficulty breathing. He had a prior nerve herniorrhaphy no other abdominal surgeries. Patient has a history of daily drinking however he states when he started developing this pain he had stopped drinking completely. Review of systems: As per history of present illness and below otherwise all systems reviewed and negative. Past medical history: As per history of present illness and as reviewed below otherwise noncontributory. Surgical history: As per history of present illness and as reviewed below otherwise noncontributory. Social history: No reported history of drug or alcohol abuse. Family history: As per history of present illness and as reviewed below otherwise noncontributory. Physical exam: HEENT: Atraumatic, normocephalic, pupils reactive, negative for conjunctival pallor or scleral icterus, mucous membranes moist, throat clear, neck supple, nontender, trachea midline. Lungs: Clear to auscultation, breath sounds equal bilaterally, chest nontender. Heart: S1S2, regular, negative for clicks, rubs, or JVD. Abdomen: Soft, nondistended, mild tenderness in the right upper quadrant with negative Nickerson sign no guarding or rebound. Negative for masses or he patosplenomegaly. Negative for costovertebral tenderness. Pelvis: Stable nontender. Genitourinary: Deferred. Rectal: Deferred. Extremities: Atraumatic, negative for cords or calf pain. Neurovascular u nremarkable. Neuro: Awake, alert, oriented. Cranial nerves II through XII unremarkable. Cerebellum unremarkable. Motor and sensory unremarkable throughout. Exam nonfocal. Diagnostics: [] Therapeutics: [] Impression: Abdominal pain [] Plan: Labs Bentyl Zofran and Pepcid for pain reassess patient. [] Definitive disposition and diagnosis as appropriate pending reevaluation and review of above. RUQ Pain Score (Numeric/FACES): 10 - Related Data Allergies Allergy/AdvReac Type Severity Reaction Status Date / Time No Known Allergies Allergy Verified 11/25/19 13:44 Home Meds: Home Meds oxyCODONE HCl/Acetaminophen [Percocet 5-325 mg Tablet] 1 each PO Q4H PRN #18 tablet 11/05/19 [Rx] Past Medical History - Past Health History Medical/Surgical History: Denies Medical/Surgical History HEENT History: Reports: None Cardiovascular History: Reports: None Respiratory History: Reports: None Gastrointestinal History: Reports: Helicobacter Pylori, Hiatal Hernia, Other (See Below) Other Gastrointestinal History: gastroenteritis Genitourinary History: Reports: None Musculoskeletal History: Reports: None Neurological History: Reports: None Psychiatric History: Reports: None Endocrine/Metabolic History: Reports: None Hematologic History: Reports: None Immunologic History: Reports: None Oncologic (Cancer) History: Reports: None Dermatologic History: Reports: None - Infectious Disease History Infectious Disease History: Reports: None - Past Surgical History Head Surgeries/Procedures: Reports: None HEENT Surgical History: Reports: None Cardiovascular Surgical History: Reports: None Respiratory Surgical History: Reports: None GI Surgical History: Reports: None Male Surgical History: Reports: None Endocrine Surgical History: Reports: None Neurological Surgical History: Reports: None Musculoskeletal Surgical History: Reports: None Oncologic Surgical History: Reports: None Dermatological Surgical History: Reports: None Social & Family History - Family History Family Medical History: Noncontributory - Tobacco Use Smoking Status *Q: Former Smoker Used Tobacco, but Quit: Yes Month/Year Tobacco Last Used: 2017 - Caffeine Use Caffeine Use: Reports: None - Recreational Drug Use Recreational Drug Use: No ED ROS GENERAL - Review of Systems Review Of Systems: See Below ED EXAM, GENERAL - Physical Exam Exam: See Below Course - Vital Signs Text/Narrative:: The nurse came to me shortly after orders were placed she is discouraged because the patient is being verbally abusive towards her stating that she is trying to give him medicines he does not need and that his belly does not hurt now she states that he is being quite agitated. Went to reassess the patient who again reiterates that he has had some elevated liver enzymes and his liver is been bothering him and he points to his right upper quadrant and does not understand why he is getting medications for his stomach when it is clearly not his stomach. He is agitated and confrontational. I recommended that he let me go ahead and take care of his concerns and he again says that the medication I have ordered is not appropriate for his side pain he also seemed to indicate that he was recording her conversation which I explained to him was against hospital policy and that I had not consented to being recorded. I recommended that he let me go ahead and medicate him to take care of his concerns and check labs he becomes even more agitated verbally abusive cursing and states he wants to leave. He will be discharged AGAINST MEDICAL ADVICE as per his wishes Last Recorded V/S: Last Vital Signs Temp 36.5 C 11/25/19 13:41 Pulse 85 11/25/19 13:41 Resp 20 11/25/19 13:41 BP 143/80 H 11/25/19 13:41 Pulse Ox 96 11/25/19 13:41 - Orders/Labs/Meds Orders: Active Orders 24 hr Category Date Time Status UA RFX GINO AND CULT IF INDIC [URIN] Stat Lab 11/25/19 14:05 Ordered Sodium Chloride 0.9% [Normal Saline] 1,000 ml Med 11/25/19 14:05 Active IV BOLUS Sodium Chloride 0.9% [Saline Flush] Med 11/25/19 14:05 Active 10 ml FLUSH ASDIRECTED PRN Sodium Chloride 0.9% [Saline Flush] Med 11/25/19 14:05 Active 2.5 ml FLUSH ASDIRECTED PRN Saline Lock Insert [OM.PC] Stat Oth 11/25/19 14:05 Ordered Medication Orders Sodium Chloride (Normal Saline) 1,000 mls @ 999 mls/hr IV BOLUS ONE Stop: 11/25/19 15:05 Last Admin: 11/25/19 14:33 Dose: 999 mls/hr Documented by: JAYLA Sodium Chloride (Saline Flush) 10 ml FLUSH ASDIRECTED PRN PRN Reason: Keep Vein Open Sodium Chloride (Saline Flush) 2.5 ml FLUSH ASDIRECTED PRN PRN Reason: Keep Vein Open Labs: Laboratory Tests 11/25/19 11/25/19 Range/Units 13:48 13:48 WBC 6.89 (4.0-11.0) K/uL RBC 4.62 (4.50-5.90) M/uL Hgb 14.2 (13.0-17.0) g/dL Hct 44.1 (38.0-50.0) % MCV 95.5 (80.0-98.0) fL MCH 30.7 (27.0-32.0) pg MCHC 32.2 (31.0-37.0) g/dL RDW Std Deviation 45.1 (28.0-62.0) fl RDW Coeff of Nu 13 (11.0-15.0) % Plt Count 240 (150-400) K/uL MPV 11.30 (7.40-12.00) fL Neut % (Auto) 52.6 (48.0-80.0) % Lymph % (Auto) 30.6 (16.0-40.0) % [place] % (Auto) 12.9 (0.0-15.0) % Eos % (Auto) 3.2 (0.0-7.0) % Baso % (Auto) 0.7 (0.0-1.5) % Neut # (Auto) 3.6 (1.4-5.7) K/uL Lymph # (Auto) 2.1 (0.6-2.4) K/uL [place] # (Auto) 0.9 H (0.0-0.8) K/uL Eos # (Auto) 0.2 (0.0-0.7) K/uL Baso # (Auto) 0.1 (0.0-0.1) K/uL Nucleated RBC % 0.0 /100WBC Nucleated RBCs # 0 K/uL Sodium 137 (136-148) mmol/L Potassium 4.4 (3.5-5.1) mmol/L Chloride 101 (98-107) mmol/L Carbon Dioxide 29.1 (21.0-32.0) mmol/L BUN 17 (7.0-18.0) mg/dL Creatinine 1.1 (0.8-1.3) mg/dL Est Cr Clr Drug Dosing 89.66 mL/min Estimated GFR (MDRD) > 60.0 ml/min Glucose 83 (74-106) mg/dL Calcium 9.3 (8.5-10.1) mg/dL Total Bilirubin 0.5 (0.2-1.0) mg/dL AST 42 H (15-37) IU/L ALT 93 H (14-63) IU/L Alkaline Phosphatase 73 (46-116) U/L Total Protein 7.9 (6.4-8.2) g/dL Albumin 3.9 (3.4-5.0) g/dL Globulin 4.0 (2.6-4.0) g/dL Albumin/Globulin Ratio 1.0 (0.9-1.6) Lipase 137 (73-393) U/L Meds: Medications Generic Name Dose Route Start Last Admin Trade Name Freq PRN Reason Stop Dose Admin Sodium Chloride 1,000 mls @ 999 mls/hr 11/25/19 14:05 11/25/19 14:33 Normal Saline IV 11/25/19 15:05 999 mls/hr BOLUS ONE Administration Sodium Chloride 10 ml 11/25/19 14:05 Saline Flush FLUSH ASDIRECTED PRN Keep Vein Open Sodium Chloride 2.5 ml 11/25/19 14:05 Saline Flush FLUSH ASDIRECTED PRN Keep Vein Open Discontinued Medications Generic Name Dose Route Start Last Admin Trade Name Freq PRN Reason Stop Dose Admin Dicyclomine HCl 20 mg 11/25/19 14:06 Bentyl PO 11/25/19 14:07 ONETIME ONE Famotidine 20 mg 11/25/19 14:06 Pepcid IVPUSH 11/25/19 14:07 ONETIME ONE Ondansetron HCl 4 mg 11/25/19 14:05 Zofran IVPUSH 11/25/19 14:06 ONETIME ONE Departure - Departure Time of Disposition: 14:47 Disposition: Against Medical Advice 07 Condition: Undetermined Clinical Impression: Abdominal pain - Discharge Information *PRESCRIPTION DRUG MONITORING PROGRAM REVIEWED*: Yes *COPY OF PRESCRIPTION DRUG MONITORING REPORT IN PATIENT JULIANNA: Yes Instructions: Flank Pain, Adult, [id number] Referrals: Quentin Camp [Primary Care Provider] - Forms: ED Department Discharge Additional Instructions: The following information is given to patients seen in the emergency department who are being discharged to home. This information is to outline your options for follow-up care. We provide all patients seen in our emergency department with a follow-up referral. The need for follow-up, as well as the timing and circumstances, are variable depending upon the specifics of your emergency department visit. If you don't have a primary care physician on staff, we will provide you with a referral. We always advise you to contact your personal physician following an emergency department visit to inform them of the circumstance of the visit and for follow-up with them and/or the need for any referrals to a consulting specialist. The emergency department will also refer you to a specialist when appropriate. This referral assures that you have the opportunity for follow-up care with a specialist. All of these measure are taken in an effort to provide you with optimal care, which includes your follow-up. Under all circumstances we always encourage you to contact your private physician who remains a resource for coordinating your care. When calling for follow-up care, please make the office aware that this follow-up is from your recent emergency room visit. If for any reason you are refused follow-up, please contact the Emergency Department at and asked to speak to the emergency department charge nurse. Sepsis Event Note (ED) - Evaluation Sepsis Screening Result: No Definite Risk - Focused Exam Vital Signs: Vital Signs Temp Pulse Resp BP Pulse Ox 11/25/19 13:41 36.5 C 85 20 143/80 H 96 - My Orders Last 24 Hours: My Active Orders 11/25/19 14:05 UA RFX GINO AND CULT IF INDIC [URIN] Stat Sodium Chloride 0.9% [Normal Saline] 1,000 ml IV BOLUS Sodium Chloride 0.9% [Saline Flush] 10 ml FLUSH ASDIRECTED PRN Sodium Chloride 0.9% [Saline Flush] 2.5 ml FLUSH ASDIRECTED PRN Saline Lock Insert [OM.PC] Stat - Assessment/Plan Last 24 Hours: My Active Orders 11/25/19 14:05 UA RFX GINO AND CULT IF INDIC [URIN] Stat Sodium Chloride 0.9% [Normal Saline] 1,000 ml IV BOLUS Sodium Chloride 0.9% [Saline Flush] 10 ml FLUSH ASDIRECTED PRN Sodium Chloride 0.9% [Saline Flush] 2.5 ml FLUSH ASDIRECTED PRN Saline Lock Insert [OM.PC] Stat
[2019-11-25 14:36] LABS: BLOOD UREA NITROGEN,BUN 17 mg/dL (7.0-18.0); CARBON DIOXIDE,CO2 29.1 mmol/L (21.0-32.0); CHLORIDE,CL 101 mmol/L (98-107); GLUCOSE RANDOM 83 mg/dL (74-106); LIPASE 137 U/L (73-393); POTASSIUM,K 4.4 mmol/L (3.5-5.1); SODIUM,NA 137 mmol/L (136-148)
== END 2019-11-25 14:50 | disposition left against medical advice (07) ==
LOC: MW.ED 13:34
DX: R10.11 Right upper quadrant pain (principal); R11.0 Nausea; Z87.891 Personal history of nicotine dependence
CPT/HCPCS: 36415; 80053; 83690; 85025; 99284; J7030; 99283

== ENCOUNTER 2019-12-25 10:09 | Emergency (ER) | payer SELFPAY ==
[2019-12-25] MEDS ORDERED: Ketorolac 30 MG/ML SDV IVPUSH ONE (11:03)
[2019-12-25] MEDS ORDERED: Ondansetron 4 MG/2 ML SDV IVPUSH ONE (11:03)
[2019-12-25] MEDS ORDERED: Sodium Chloride 0.9% 1,000 ML IV ONE (11:03)
[2019-12-25] MEDS ORDERED: Alum Hydrox/Mag Hydrox/Simeth 15 ML, Lidocaine 2% 5 ML PO ONE ×2 (11:05)
[2019-12-25] MEDS ORDERED: Pantoprazole 80 MG in Sodium Chloride 0.9% 20 ML IVPUSH ONE (11:05)
--- NOTE | 2019-12-25 11:15 | EDM.PDOC ---
ED HPI GENERAL MEDICAL PROBLEM - General Chief Complaint: Gastrointestinal Problem Stated Complaint: STOMACH ACHES/ABDOMINAL PAIN Time Seen by Provider: 12/25/19 10:19 Source of Information: Reports: Patient History Limitations: Reports: No Limitations - History of Present Illness INITIAL COMMENTS - FREE TEXT/NARRATIVE: HISTORY AND PHYSICAL: History of present illness: Patient is a 39-year-old male who presents to the ED today with concern of epigastric pain with occasional vomiting over the last 2 days. Patient describes the pain as sharp and "comes and goes ". Patient states his pain is worse with certain foods and states specifically fried foods make his pain worse. Patient states he also has heartburn associated with his discomfort. Patient denies any abdominal surgeries but states he has had diverticulitis and stomach ulcers in the past. Patient states that he has had one episode of vomiting yesterday but has not had any vomiting today. Patient states he has been able to eat and drink today which does cause some discomfort. Patient states he does drink alcohol and has about 3-4 drinks/day a few times a week. Patient denies fever, chills, chest pain, shortness of breath, or cough. Denies headache, neck stiff ness, change in vision, syncope, or near syncope. Denies nausea, diarrhea, constipation, or dysuria. Has not noted any blood in urine or stool. Review of systems: As per history of present illness and below otherwise all systems reviewed and negative. Past medical history: As per history of present illness and as reviewed below otherwise noncontributory. Surgical history: As per history of present illness and as reviewed below otherwise noncontributory. Social history: See social history for further information Family history: As per history of present illness and as reviewed below otherwise noncontributory. Physical exam: General: Patient is alert, oriented, and in no acute distress. Patient laying comfortably on exam table. HEENT: Atraumatic, normocephalic, pupils equal and reactive bilaterally, negative for conjunctival pallor or scleral icterus, mucous membranes moist, TMs normal bilaterally, throat clear, neck supple, nontender, trachea midline. No drooling or trismus noted. No meningeal signs. No hot potato voice noted. Lungs: Clear to auscultation, breath sounds equal bilaterally, chest nontender. Heart: S1S2, regular rate and rhythm without overt murmur Abdomen: Soft, nondistended, mild-moderate epigastric tenderness without guarding, negative Nickerson sign. Negative rebound tenderness. Negative for masses or hepatosplenomegaly. Negative for costovertebral tenderness. Pelvis: Stable nontender. Genitourinary: Deferred. Rectal: Deferred. Skin: Intact, warm, dry. No lesions or rashes noted. Extremities: Atraumatic, negative for cords or calf pain. Neurovascular unremarkable. Neuro: Awake, alert, oriented. Cranial nerves II through XII unremarkable. Cerebellum unremarkable. Motor and sensory unremarkable throughout. Exam nonfocal. Notes: COVID19 testing offered to patient but he declines at this time, All incidental findings of imaging discussed with patient today and importance for follow up with PCP. Signs and symptoms that would prompt return to the ED thoroughly discussed with patient. Discussed importance for follow-up primary care provider and general surgeon. Voices understanding and is agreeable to plan of care. Denies any further questions or concerns at this time. Diagnostics: EKG, CBC, CMP, UA, Trop, CXR, RUQ US, Abd/Pelvic w cont, lipase Therapeutics: NS, Zofran, GI cocktail, Protonix, Toradol Prescription: Prilosec Impression: Epigastric abdominal pain, unspecified Plan: 1. Take medication as prescribed. You can use Tylenol as directed for pain and discomfort. 2. Follow-up with a primary care provider and general surgery as discussed. Return to the ED as needed and as discussed. 3. Return to the ED as needed and as discussed. Definitive disposition and diagnosis as appropriate pending reevaluation and review of above. - Related Data Allergies Allergy/AdvReac Type Severity Reaction Status Date / Time No Known Allergies Allergy Verified 12/25/19 10:41 Home Meds: Home Meds Omeprazole Magnesium [Prilosec] 20 mg PO DAILY 14 Days #14 suspdr.pkt 12/25/19 [Rx] Past Medical History - Past Health History Medical/Surgical History: Denies Medical/Surgical History HEENT History: Reports: None Cardiovascular History: Reports: None Respiratory History: Reports: None Other Respiratory History: Pulmondary Nodule 10/2019 Gastrointestinal History: Reports: Fatty Liver, GI Bleed, Helicobacter Pylori, Hiatal Hernia, Other (See Below) Other Gastrointestinal History: gastroenteritis, stomach Ulcers Genitourinary History: Reports: None Musculoskeletal History: Reports: None Neurological History: Reports: None Psychiatric History: Reports: None Endocrine/Metabolic History: Reports: None Hematologic History: Reports: None Immunologic History: Reports: None Oncologic (Cancer) History: Reports: None Dermatologic History: Reports: None - Infectious Disease History Infectious Disease History: Reports: None - Past Surgical History Head Surgeries/Procedures: Reports: None HEENT Surgical History: Reports: None Cardiovascular Surgical History: Reports: None Respiratory Surgical History: Reports: None GI Surgical History: Reports: None Male Surgical History: Reports: None Endocrine Surgical History: Reports: None Neurological Surgical History: Reports: None Musculoskeletal Surgical History: Reports: None Oncologic Surgical History: Reports: None Dermatological Surgical History: Reports: None Social & Family History - Family History Family Medical History: Noncontributory - Tobacco Use Tobacco Use Status *Q: Former Tobacco User Used Tobacco, but Quit: Yes Month/Year Tobacco Last Used: 2017 - Caffeine Use Caffeine Use: Reports: Coffee, Energy Drinks, Soda - Recreational Drug Use Recreational Drug Use: No ED ROS GENERAL - Review of Systems Review Of Systems: Comprehensive ROS is negative, except as noted in HPI. ED EXAM, GENERAL - Physical Exam Exam: See Below (see dictation) Course - Vital Signs Last Recorded V/S: Last Vital Signs Temp 96.8 F L 12/25/19 15:15 Pulse 84 12/25/19 15:15 Resp 18 12/25/19 15:15 BP 148/101 H 12/25/19 15:15 Pulse Ox 97 12/25/19 15:15 - Orders/Labs/Meds Orders: Active Orders 24 hr Category Date Time Status UA RFX GINO AND CULT IF INDIC [URIN] Stat Lab 12/25/19 11:03 Ordered Labs: Laboratory Tests 12/25/19 12/25/19 Range/Units 11:50 11:50 WBC 7.13 (4.0-11.0) K/uL RBC 4.82 (4.50-5.90) M/uL Hgb 14.6 (13.0-17.0) g/dL Hct 45.3 (38.0-50.0) % MCV 94.0 (80.0-98.0) fL MCH 30.3 (27.0-32.0) pg MCHC 32.2 (31.0-37.0) g/dL RDW Std Deviation 44.4 (28.0-62.0) fl RDW Coeff of Nu 13 (11.0-15.0) % Plt Count 216 (150-400) K/uL MPV 10.50 (7.40-12.00) fL Neut % (Auto) 51.6 (48.0-80.0) % Lymph % (Auto) 32.0 (16.0-40.0) % [place] % (Auto) 13.0 (0.0-15.0) % Eos % (Auto) 2.8 (0.0-7.0) % Baso % (Auto) 0.6 (0.0-1.5) % Neut # (Auto) 3.7 (1.4-5.7) K/uL Lymph # (Auto) 2.3 (0.6-2.4) K/uL [place] # (Auto) 0.9 H (0.0-0.8) K/uL Eos # (Auto) 0.2 (0.0-0.7) K/uL Baso # (Auto) 0.0 (0.0-0.1) K/uL Nucleated RBC % 0.0 /100WBC Nucleated RBCs # 0 K/uL Sodium 138 (136-148) mmol/L Potassium 4.3 (3.5-5.1) mmol/L Chloride 103 (98-107) mmol/L Carbon Dioxide 27.8 (21.0-32.0) mmol/L BUN 12 (7.0-18.0) mg/dL Creatinine 1.0 (0.8-1.3) mg/dL Est Cr Clr Drug Dosing TNP Estimated GFR (MDRD) > 60.0 ml/min Glucose 88 (74-106) mg/dL Calcium 9.5 (8.5-10.1) mg/dL Total Bilirubin 0.4 (0.2-1.0) mg/dL AST 32 (15-37) IU/L ALT 58 (14-63) IU/L Alkaline Phosphatase 78 (46-116) U/L Troponin I < 0.050 (0.000-0.056) ng/mL Total Protein 8.1 (6.4-8.2) g/dL Albumin 3.7 (3.4-5.0) g/dL Globulin 4.4 H (2.6-4.0) g/dL Albumin/Globulin Ratio 0.8 L (0.9-1.6) Lipase 152 (73-393) U/L Meds: Medications Discontinued Medications Generic Name Dose Route Start Last Admin Trade Name Lissette PRN Reason Stop Dose Admin Al Hydroxide/Mg Hydroxide 15 0 ml 12/25/19 11:05 12/25/19 12:01 ml/ Lidocaine HCl 5 ml PO 12/25/19 11:06 1 each ONETIME ONE Administration Sodium Chloride 1,000 mls @ 999 mls/hr 12/25/19 11:03 12/25/19 11:54 Normal Saline IV 12/25/19 12:03 999 mls/hr BOLUS ONE Administration Pantoprazole Sodium 80 mg/ 20 mls @ 420 mls/hr 12/25/19 11:05 12/25/19 12:01 Sodium Chloride IVPUSH 12/25/19 11:07 420 mls/hr ONETIME ONE Administration Iopamidol 100 ml 12/25/19 13:16 12/25/19 13:17 Isovue Multipack-370 (76%) IVPUSH 12/25/19 13:17 100 ml ONETIME ONE Administration Ketorolac Tromethamine 30 mg 12/25/19 11:03 12/25/19 12:00 Toradol IVPUSH 12/25/19 11:04 30 mg ONETIME ONE Administration Ondansetron HCl 4 mg 12/25/19 11:03 12/25/19 11:57 Zofran IVPUSH 12/25/19 11:04 4 mg ONETIME ONE Administration Departure - Departure Time of Disposition: 14:55 Disposition: Home, Self-Care 01 Clinical Impression: Epigastric abdominal pain - Discharge Information Prescriptions: Omeprazole Magnesium [Prilosec] 20 mg PO DAILY 14 Days #14 suspdr.pkt Instructions: Abdominal Pain, Adult, [id number] Referrals: PCP,None [Primary Care Provider] - Forms: ED Department Discharge Additional Instructions: The following information is given to patients seen in the emergency department who are being discharged to home. This information is to outline your options for follow-up care. We provide all patients seen in our emergency department with a follow-up referral. The need for follow-up, as well as the timing and circumstances, are variable depending upon the specifics of your emergency department visit. If you don't have a primary care physician on staff, we will provide you with a referral. We always advise you to contact your personal physician following an emergency department visit to inform them of the circumstance of the visit and for follow-up with them and/or the need for any referrals to a consulting specialist. The emergency department will also refer you to a specialist when appropriate. This referral assures that you have the opportunity for follow-up care with a specialist. All of these measure are taken in an effort to provide you with optimal care, which includes your follow-up. Under all circumstances we always encourage you to contact your private physician who remains a resource for coordinating your care. When calling for follow-up care, please make the office aware that this follow-up is from your recent emergency room visit. If for any reason you are refused follow-up, please contact the [facility] Emergency Department at and asked to speak to the emergency department charge nurse. [facility] [address] [place] [id number] [facility] - General Surgery Professional [address], [address] [place] [address] 1. Take medication as prescribed. You can use Tylenol as directed for pain and discomfort. 2. Follow-up with a primary care provider and general surgery as discussed. Return to the ED as needed and as discussed. 3. Return to the ED as needed and as discussed. Sepsis Event Note (ED) - Evaluation Sepsis Screening Result: No Definite Risk - Focused Exam Vital Signs: Vital Signs Temp Pulse Resp BP Pulse Ox 12/25/19 15:15 96.8 F L 84 18 148/101 H 97 12/25/19 13:58 96.6 F L 72 16 125/82 97 12/25/19 10:43 97.1 F 102 H 16 137/107 H 97 - My Orders Last 24 Hours: My Active Orders 12/25/19 11:03 UA RFX GINO AND CULT IF INDIC [URIN] Stat - Assessment/Plan Last 24 Hours: My Active Orders 12/25/19 11:03 UA RFX GINO AND CULT IF INDIC [URIN] Stat
--- NOTE | 2019-12-25 11:25 | PCM.PRNOTE ---
- Free Text/Narrative Note: Time:1125 Rate:81 Rhythm: sinus Intervals: normal ST-T wave: no acute changes Overall: normal sinus rhythm
--- NOTE | 2019-12-25 12:17 | CR ---
Indication: Pain and shortness of breath Comparison: Two-view chest November 05, 2019 Technique: Single AP view chest Findings: There is no focal consolidation, effusion, or pneumothorax. The cardiomediastinal silhouette is within normal limits. The bony thorax is grossly intact. Impression: No acute cardiopulmonary abnormality. Dictated by Mina Carey MD @ Dec 25 2019 12:13PM Signed by Dr. Mina Carey @ Dec 25 2019 12:15PM
[2019-12-25 12:23] LABS: BLOOD UREA NITROGEN,BUN 12 mg/dL (7.0-18.0); CARBON DIOXIDE,CO2 27.8 mmol/L (21.0-32.0); CHLORIDE,CL 103 mmol/L (98-107); GLUCOSE RANDOM 88 mg/dL (74-106); LIPASE 152 U/L (73-393); POTASSIUM,K 4.3 mmol/L (3.5-5.1); SODIUM,NA 138 mmol/L (136-148)
[2019-12-25] MEDS ORDERED: Iopamidol 755 MG/ML 500 ML Multipack Bottle IVPUSH ONE (13:16)
--- NOTE | 2019-12-25 13:53 | CT ---
Indication: History of left upper quadrant pain on and off for 2 years Technique: Volumetric multidetector CT images of the abdomen and pelvis were obtained after the administration of intravenous contrast. 100 cc Isovue 370 Comparison: CT abdomen and pelvis November 14, 2018 Findings: There are patchy airspace opacities with ground-glass opacification seen within the middle lobe. The liver is enlarged with hepatic steatosis without evidence of The portal vein is patent. The gallbladder is unremarkable without evidence of radiopaque calculus. There is no significant common biliary ductal dilatation or abrupt cut off. The spleen is normal in enhancement and size. The stomach and duodenum are grossly unremarkable. The pancreas is normal in enhancement without significant atrophy. The adrenal glands are unremarkable. The kidneys demonstrate likely stable simple cortically based cyst in the inferior pole of the right kidney otherwise the kidneys are grossly preserved in cortical medullary differentiation. There is a minimal amount of stool seen throughout the colon with colonic diverticulosis without evidence of diverticulitis. The appendix is unremarkable. There are scattered somewhat shoddy central mesenteric lymph nodes similar to previous exam with minimal peripheral mesenteric ground-glass opacity likely representing sequela of mesenteric adenitis. The aorta is nonaneurysmal. There is no significant atherosclerotic disease appreciated. The solid pelvic viscera are grossly unremarkable. There is no free fluid or free air. There is a small fat containing umbilical hernia again seen otherwise anterior abdominal wall is within normal limits. The lumbar vertebral body heights are grossly maintained in satisfactory alignment without evidence of displaced fracture, lytic or blastic lesion. Impression: Incidental note made of ground-glass opacity within the partially visualized middle lobe. Correlate for history of viral infections such is ovalle virus infection. Hepatomegaly and hepatic steatosis similar to previous exam. Unchanged shotty mesenteric lymph nodes and central mesenteric ground-glass opacity commensurate with sequela of prior mesenteric adenitis. Please note that all CT scans at this facility use dose modulation, iterative reconstruction, and/or weight-based dosing when appropriate to reduce radiation dose to as low as reasonably achievable. Dictated by Mina Carey MD @ Dec 25 2019 1:42PM Signed by Dr. Mina Carey @ Dec 25 2019 1:51PM
--- NOTE | 2019-12-25 14:49 | US ---
INDICATION: Right upper quadrant pain. TECHNIQUE: Conventional two-dimensional grayscale ultrasound of the right upper quadrant. COMPARISON: None. FINDINGS: The gallbladder is normal, with no evidence of stones. No gallbladder wall thickening or pericholecystic fluid is demonstrated. The patient is reportedly not tender over the gallbladder. No biliary ductal dilation is evident. The common bile duct measures 2 mm. Fatty change is demonstrated in the liver. The liver is otherwise negative. The pancreas is within normal limits. The right kidney is unremarkable. The visualized portion of the abdominal aorta and inferior vena cava are negative. IMPRESSION: 1. Normal gallbladder and bile ducts. 2. Fatty liver. Dictated by Yovani Villanueva MD @ Dec 25 2019 2:46PM Signed by Dr. Yovani Villanueva @ Dec 25 2019 2:48PM
[2019-12-25 15:32] VITALS: BP 148/101; PULSE 84
== END 2019-12-25 15:20 | disposition home or self-care (01) ==
LOC: MW.ED 10:09
DX: R10.13 Epigastric pain (principal); Z87.891 Personal history of nicotine dependence
CPT/HCPCS: 71045; 74177; 76705; 80053; 83690; 84484; 85025; 93005; 96374; 96375; 99284; A9270; C9113; J1885; J2405; J7030; Q9967

== ENCOUNTER 2020-03-09 10:54 | Emergency (ER) | payer SELFPAY ==
[2020-03-09 11:04] VITALS: BP 150/100; PULSE 120
[2020-03-09] MEDS ORDERED: Acetaminophen/oxyCODONE 325-10 MG Tab PO ONE (11:15)
--- NOTE | 2020-03-09 11:46 | EDM.PDOC ---
ED HPI GENERAL MEDICAL PROBLEM - General Chief Complaint: Back Pain or Injury Stated Complaint: FELL ON LOWER BACK Time Seen by Provider: 03/09/20 11:09 Source of Information: Reports: Patient History Limitations: Reports: No Limitations - History of Present Illness INITIAL COMMENTS - FREE TEXT/NARRATIVE: HISTORY AND PHYSICAL: History of present illness: Patient is a 40-year-old male who presents to the emergency room with complaints of lumbar back pain into his tailbone that also radiates down his left lower extremity. He states he was sledding with his daughter, while at the top of the hill he started to walk down. He started slipping on the snow/ice and fell onto his buttocks. He denies hitting his head or having any loss of consciousness. This occurred on Saturday and since then he has progressively had increased pain, states he is not able to get comfortable in a seated or standing position. Patient denies any fever, chills, headache, change in vision, syncope or near syncope. Denies any chest pain, shortness of breath or cough. Denies any abdominal pain, nausea, vomiting, diarrhea, constipation or dysuria. Denies any testicular pain, redness or swelling. Has not noted any blood in urine or stool. Denies any numbness, tingling, saddle paresthesia or weakness of the distal extremities. Patient has been eating and drinking appropriately. Review of systems: As per history of present illness and below otherwise all systems reviewed and negative. Past medical history: As per history of present illness and as reviewed below otherwise noncontrib utory. Surgical history: As per history of present illness and as reviewed below otherwise noncontributory. Social history: See social history for further information Family history: As per history of present illness and as reviewed below otherwise noncontributory. Physical exam: General: Well developed and well nourished. Alert and orientated x 3. Nontoxic in appearance and in no acute distress. Vital signs are stable and have been reviewed by me. Nursing notes were reviewed. HEENT: Atraumatic, normocephalic, pupils equal and reactive bilaterally, negative for conjunctival pallor or scleral icterus, mucous membranes moist, TMs normal bilaterally, throat clear, neck supple, nontender, trachea midline. No drooling or trismus noted. No meningeal signs. No hot potato voice noted. Lungs: Clear to auscultation bilaterally. No wheezes, rales, or rhonchi. Chest nontender. Normal work of breathing, no accessory muscles used. Heart: S1S2, regular rate and rhythm without overt murmur, gallops, or rubs. No JVD. No peripheral edema Abdomen: Soft, nondistended, nontender. Normoactive bowel sounds. Negative for masses or costovertebral tenderness. Pelvis: Stable nontender. Genitourinary/Rectal: Deferred. C-spine/Back: No pinpoint vertebral tenderness upon palpation. No crepitus, step-offs or obvious deformities. Paraspinous muscular tenderness to the upper lumbar into the tailbone bilaterally. Patient is ambulatory into the emergency room without difficulty or deficit. Able to rock back on heels and walk on toes. Denies any urinary or fecal incontinence. Denies any numbness, tingling or saddle paresthesia. No concerns of serious infection, fracture or cord compression, or cauda equina syndrome. Deep tendon reflexes brisk bilaterally. Skin: Healing bruise noted to the right middle glute. Intact, warm, dry. No lesions or rashes noted. Hematologic: No petechiae or purpra. Mucosa appropriate color and normal nail bed color and refill. Extremities: Moves all extremities per self without difficulty or deficits, negative for cords or calf pain. Neurovascular unremarkable. Neuro: Awake, alert, oriented. Cranial nerves II through XII unremarkable. Cerebellum unremarkable. Motor and sensory unremarkable throughout. Exam nonfocal. Psychiatric: Mood and affect are appropriate. Normal thought process. Answering questions appropriately. Notes: *This patient was seen and evaluated during the 2019 SARS-CoV-2 novel coronavirus pandemic period. Community viral transmission is ongoing at time of this encounter and the emergency department is operating under pandemic response procedures. At this time I do not feel CT or MRI are warranted, no neurological findings on my physical exam. Agreeable to x-ray. He does have a ride, will give him some oral pain medication while he is waiting for imaging/results. X-ray of the thoracic, lumbar and pelvis are within normal limits. No acute findings are noted I have talked with the patient about today's findings, in ad dition to providing specific details for plan of care. Reassessment at the time of disposition demonstrates that the patient is in no acute distress. He is sitting in the chair and stretching out all of his extremities freely moving his knees up into his chest. He is requesting that he have Lortab as he feels the Percocet I had given him is causing him to feel "too drowsy". The patient is stable for discharge, counseling was provided and we discussed in great detail signs and symptoms that would prompt them to return to the Emergency Department. Medication, follow up and supportive care measures were reviewed and discussed. Voices understanding and is agreeable to plan of care. Denies any further questions or concerns at this time. Diagnostics: Thoracic/lumbar spine x-ray, pelvis x-ray Therapeutics: Percocet Prescription: [place] (#20) Impression: Lumbar back strain Fall Plan: 1. The medication you received today does cause drowsiness, so do not drive for the remaining day 2. When resting please lay on a flat firm surface. Limit your immobility to prevent muscle stiffness. Get up to ambulate/move around/gentle stretching multiple times throughout the day. May alternate heat and ice to the painful areas 3. Tylenol and ibuprofen as needed for back pain. While you are having discomfort please take the ibuprofen routinely with food as this is an anti- inflammatory and should help with healing. Loratab as directed, this medication may cause drowsiness a do not take it will driving her needing to be functioning outside of the house. 4. Please follow-up with your primary care provider as we discussed. Return to the ED as needed and as discussed. Definitive disposition and diagnosis as appropriate pending reevaluation and review of above. lower back, tailbone Pain Score (Numeric/FACES): 10 - Related Data Allergies Allergy/AdvReac Type Severity Reaction Status Date / Time No Known Allergies Allergy Verified 03/09/20 11:04 Home Meds: Home Meds Omeprazole Magnesium [Prilosec] 20 mg PO DAILY 14 Days #14 suspdr.pkt 12/25/19 [Rx] Acetaminophen/HYDROcodone [[place] 325-5 MG] 1 - 2 tab PO Q6H PRN #20 tablet 03/09/20 [Rx] Past Medical History - Past Health History Medical/Surgical History: Denies Medical/Surgical History HEENT History: Reports: None Cardiovascular History: Reports: None Respiratory History: Reports: None Other Respiratory History: Pulmondary Nodule 10/2019 Gastrointestinal History: Reports: Fatty Liver, GI Bleed, Helicobacter Pylori, Hiatal Hernia, Other (See Below) Other Gastrointestinal History: gastroenteritis, stomach Ulcers Genitourinary History: Reports: Renal Calculus Musculoskeletal History: Reports: None Neurological History: Reports: None Psychiatric History: Reports: None Endocrine/Metabolic History: Reports: None Hematologic History: Reports: None Immunologic History: Reports: None Oncologic (Cancer) History: Reports: None Dermatologic History: Reports: None - Infectious Disease History Infectious Disease History: Reports: None - Past Surgical History Head Surgeries/Procedures: Reports: None HEENT Surgical History: Reports: None Cardiovascular Surgical History: Reports: None Respiratory Surgical History: Reports: None GI Surgical History: Reports: None Male Surgical History: Reports: None Endocrine Surgical History: Reports: None Neurological Surgical History: Reports: None Musculoskeletal Surgical History: Reports: None Oncologic Surgical History: Reports: None Dermatological Surgical History: Reports: None Social & Family History - Family History Family Medical History: No Pertinent Family History - Tobacco Use Tobacco Use Status *Q: Former Tobacco User Used Tobacco, but Quit: Yes Month/Year Tobacco Last Used: 2 years ago - Caffeine Use Caffeine Use: Reports: Coffee, Energy Drinks, Soda - Alcohol Use Days Per Week of Alcohol Use: 7 Number of Drinks Per Day: 24 Total Drinks Per Week: 168 - Recreational Drug Use Recreational Drug Use: No ED ROS GENERAL - Review of Systems Review Of Systems: Comprehensive ROS is negative, except as noted in HPI. ED EXAM,LOWER BACK PAIN/INJURY - Physical Exam Exam: See Below (See dictation) Course - Vital Signs Last Recorded V/S: Last Vital Signs Temp 97.7 F 03/09/20 10:59 Pulse 120 H 03/09/20 10:59 Resp 20 03/09/20 10:59 BP 150/100 H 03/09/20 10:59 Pulse Ox 96 03/09/20 10:59 - Orders/Labs/Meds Meds: Medications Discontinued Medications Generic Name Dose Route Start Last Admin Trade Name Freq PRN Reason Stop Dose Admin Oxycodone/Acetaminophen 1 tab 03/09/20 11:15 03/09/20 11:26 Percocet 325-10 Mg PO 03/09/20 11:16 1 tab ONETIME ONE Administration Departure - Departure Time of Disposition: 14:16 Disposition: Home, Self-Care 01 Clinical Impression: Lumbar spine strain Qualifiers: Encounter type: initial encounter Qualified Code(s): S39.012A - Strain of muscle, fascia and tendon of lower back, initial encounter Fall Qualifiers: Encounter type: initial encounter Qualified Code(s): W19.XXXA - Unspecified fall, initial encounter - Discharge Information Prescriptions: Acetaminophen/HYDROcodone [[place] 325-5 MG] 1 - 2 tab PO Q6H PRN #20 tablet PRN Reason: Pain Instructions: Lumbosacral Strain, Tailbone Injury, [id number] Referrals: PCP,None [Primary Care Provider] - Forms: ED Department Discharge Additional Instructions: The following information is given to patients seen in the emergency department who are being discharged to home. This information is to outline your options for follow-up care. We provide all patients seen in our emergency department with a follow-up referral. The need for follow-up, as well as the timing and circumstances, are variable depending upon the specifics of your emergency department visit. If you don't have a primary care physician on staff, we will provide you with a referral. We always advise you to contact your personal physician following an emergency department visit to inform them of the circumstance of the visit and for follow-up with them and/or the need for any referrals to a consulting specialist. The emergency department will also refer you to a specialist when appropriate. This referral assures that you have the opportunity for follow-up care with a specialist. All of these measure are taken in an effort to provide you with optimal care, which includes your follow-up. Under all circumstances we always encourage you to contact your private physician who remains a resource for coordinating your care. When calling for follow-up care, please make the office aware that this follow-up is from your recent emergency room visit. If for any reason you are refused follow-up, please contact the [facility] Emergency Department at and asked to speak to the emergency department charge nurse. [facility] [address] [place] [id number] [facility] [address] [place] [address] Thank you for choosing the [facility] emergency department in [place] for your medical needs today. It was a pleasure caring for you. Today you were seen in the emergency department for back pain. 1. The medication you received today does cause drowsiness, so do not drive for the remaining day 2. When resting please lay on a flat firm surface. Limit your immobility to prevent muscle stiffness. Get up to ambulate/move around/gentle stretching multiple times throughout the day. May alternate heat and ice to the painful areas 3. Tylenol and ibuprofen as needed for back pain. While you are having discomfort please take the ibuprofen routinely with food as this is an anti- inflammatory and should help with healing. Loratab as directed, this medication may cause drowsiness a do not take it will driving her needing to be functioning outside of the house. 4. Please follow-up with your primary care provider as we discussed. Return to the ED as needed and as discussed. Sepsis Event Note (ED) - Evaluation Sepsis Screening Result: No Definite Risk - Focused Exam Vital Signs: Vital Signs Temp Pulse Resp BP Pulse Ox 03/09/20 10:59 97.7 F 120 H 20 150/100 H 96
--- NOTE | 2020-03-09 12:16 | CR ---
INDICATION: Pain after fall TECHNIQUE: Thoracic spine 3 view. COMPARISON: October 07, 2016 FINDINGS: Bones: Alignment is normal. No fractures or significant bone lesions. Joints: Disc spaces and facets are unremarkable. Soft tissues: Unremarkable. IMPRESSION: No acute abnormality in the thoracic spine. Dictated by Ramya Maya MD @ Mar 09 2020 12:14PM Signed by Dr. Ramya Maya @ Mar 09 2020 12:14PM
--- NOTE | 2020-03-09 12:18 | CR ---
INDICATION: Pain in lumbar spine after fall TECHNIQUE: Lumbar spine 3 view. COMPARISON: June 04, 2018 FINDINGS: Bones: Alignment is normal. No fractures or significant bone lesions. Joints: Minimal multilevel degenerative disc and facet changes. Soft tissues: Unremarkable. IMPRESSION: No acute lumbar spine abnormality. Dictated by Ramya Maya MD @ Mar 09 2020 12:14PM Signed by Dr. Ramya Maya @ Mar 09 2020 12:16PM
--- NOTE | 2020-03-09 12:18 | CR ---
Indication: Pain after fall Technique: Frontal view pelvis Comparison: None Findings: Bones: Alignment is normal. No fractures or bone lesions. Joint spaces: Unremarkable. Soft tissues: Unremarkable. Impression: Negative. Dictated by Ramya Maya MD @ Mar 09 2020 12:16PM Signed by Dr. Ramya Maya @ Mar 09 2020 12:17PM
== END 2020-03-09 12:48 | disposition home or self-care (01) ==
LOC: MW.ED 10:54
DX: S39.012A Strain of muscle, fascia and tendon of lower back, initial encounter (principal); Z87.891 Personal history of nicotine dependence; W00.0XXA Fall on same level due to ice and snow, initial encounter; Y93.01 Activity, walking, marching and hiking; Y92.828 Other wilderness area as the place of occurrence of the external cause
CPT/HCPCS: 72072; 72100; 72170; 99283; A9270

== ENCOUNTER 2020-06-15 16:47 | Emergency (ER) | payer SELFPAY ==
[2020-06-15] MEDS ORDERED: Ondansetron 4 MG Tab.DIS PO ONE (17:07)
--- NOTE | 2020-06-15 17:10 | EDM.PDOC ---
ED HPI GENERAL MEDICAL PROBLEM - General Chief Complaint: General Stated Complaint: NAUSEA Time Seen by Provider: 06/15/20 16:54 Source of Information: Reports: Patient History Limitations: Reports: No Limitations - History of Present Illness INITIAL COMMENTS - FREE TEXT/NARRATIVE: Patient is a 40-year-old male who presents today for nausea and fatigue. Patient states that he has not been feeling well. Patient states that he is able to tolerate liquids last night no appetite for any solid foods. Patient work with him to come and have a Covid test before he can return. Patient denies any cough shortness of breath fevers or chills abdominal pain. Abdomnial Pain Score (Numeric/FACES): 10 - Related Data Allergies Allergy/AdvReac Type Severity Reaction Status Date / Time No Known Allergies Allergy Verified 06/15/20 16:57 Home Meds: Home Meds . [No Known Home Meds] 06/15/20 [History] Past Medical History - Past Health History Medical/Surgical History: Denies Medical/Surgical History HEENT History: Reports: None Cardiovascular History: Reports: None Respiratory History: Reports: None Other Respiratory History: Pulmondary Nodule 10/2019 Gastrointestinal History: Reports: Fatty Liver, GI Bleed, Helicobacter Pylori, Hiatal Hernia, Other (See Below) Other Gastrointestinal History: gastroenteritis, stomach Ulcers Genitourinary History: Reports: Renal Calculus Musculoskeletal History: Reports: None Neurological History: Reports: None Psychiatric History: Reports: None Endocrine/Metabolic History: Reports: None Hematologic History: Reports: None Immunologic History: Reports: None Oncologic (Cancer) History: Reports: None Dermatologic History: Reports: None - Infectious Disease History Infectious Disease History: Reports: None - Past Surgical History Head Surgeries/Procedures: Reports: None HEENT Surgical History: Reports: None Cardiovascular Surgical History: Reports: None Respiratory Surgical History: Reports: None GI Surgical History: Reports: None Male Surgical History: Reports: None Endocrine Surgical History: Reports: None Neurological Surgical History: Reports: None Musculoskeletal Surgical History: Reports: None Oncologic Surgical History: Reports: None Dermatological Surgical History: Reports: None Social & Family History - Family History Family Medical History: No Pertinent Family History - Tobacco Use Tobacco Use Status *Q: Never Tobacco User - Caffeine Use Caffeine Use: Reports: None - Alcohol Use Days Per Week of Alcohol Use: 7 Number of Drinks Per Day: 12 Total Drinks Per Week: 84 - Recreational Drug Use Recreational Drug Use: No ED ROS GENERAL - Review of Systems Review Of Systems: See Below Constitutional: Reports: No Symptoms HEENT: Reports: No Symptoms Respiratory: Reports: No Symptoms Cardiovascular: Reports: No Symptoms Endocrine: Reports: No Symptoms GI/Abdominal: Reports: Nausea : Reports: No Symptoms Musculoskeletal: Reports: No Symptoms Skin: Reports: No Symptoms Neurological: Reports: No Symptoms Psychiatric: Reports: No Symptoms Hematologic/Lymphatic: Reports: No Symptoms Immunologic: Reports: No Symptoms ED EXAM, GENERAL - Physical Exam Exam: See Below Exam Limited By: No Limitations General Appearance: Alert, WD/WN, No Apparent Distress Respiratory/Chest: No Respiratory Distress, Lungs Clear, Normal Breath Sounds Cardiovascular: Normal Peripheral Pulses, Regular Rate, Rhythm GI/Abdominal: Normal Bowel Sounds, Soft, Non-Tender Extremities: Normal Inspection Neurological: Alert, Oriented, CN II-XII Intact, Normal Cognition, Normal Gait Course - Vital Signs Last Recorded V/S: Last Vital Signs Temp 97.6 F 06/15/20 16:58 Pulse 111 H 06/15/20 16:58 Resp 17 06/15/20 16:58 BP 166/115 H 06/15/20 16:58 Pulse Ox 95 06/15/20 16:58 - Orders/Labs/Meds Labs: Laboratory Tests 06/15/20 06/15/20 06/15/20 Range/Units 17:16 17:16 17:20 WBC 8.00 (4.0-11.0) K/uL RBC 4.84 (4.50-5.90) M/uL Hgb 15.3 (13.0-17.0) g/dL Hct 45.5 (38.0-50.0) % MCV 94.0 (80.0-98.0) fL MCH 31.6 (27.0-32.0) pg MCHC 33.6 (31.0-37.0) g/dL RDW Std Deviation 45.8 (28.0-62.0) fl RDW Coeff of Nu 13 (11.0-15.0) % Plt Count 213 (150-400) K/uL MPV 10.40 (7.40-12.00) fL Neut % (Auto) 54.6 (48.0-80.0) % Lymph % (Auto) 29.8 (16.0-40.0) % [place] % (Auto) 11.8 (0.0-15.0) % Eos % (Auto) 3.3 (0.0-7.0) % Baso % (Auto) 0.5 (0.0-1.5) % Neut # (Auto) 4.4 (1.4-5.7) K/uL Lymph # (Auto) 2.4 (0.6-2.4) K/uL [place] # (Auto) 0.9 H (0.0-0.8) K/uL Eos # (Auto) 0.3 (0.0-0.7) K/uL Baso # (Auto) 0.0 (0.0-0.1) K/uL Nucleated RBC % 0.0 /100WBC Nucleated RBCs # 0 K/uL Sodium 139 (136-148) mmol/L Potassium 4.0 (3.5-5.1) mmol/L Chloride 103 (98-107) mmol/L Carbon Dioxide 26.1 (21.0-32.0) mmol/L BUN 16 (7.0-18.0) mg/dL Creatinine 1.1 (0.8-1.3) mg/dL Est Cr Clr Drug Dosing 92.17 mL/min Estimated GFR (MDRD) > 60.0 ml/min Glucose 90 (74-106) mg/dL Calcium 9.2 (8.5-10.1) mg/dL Total Bilirubin 0.6 (0.2-1.0) mg/dL AST 59 H (15-37) IU/L ALT 117 H (14-63) IU/L Alkaline Phosphatase 94 (46-116) U/L Total Protein 8.3 H (6.4-8.2) g/dL Albumin 3.5 (3.4-5.0) g/dL Globulin 4.8 H (2.6-4.0) g/dL Albumin/Globulin Ratio 0.7 L (0.9-1.6) SARS-CoV-2 RNA (PLACIDO) NEGATIVE (NEGATIVE) Meds: Medications Discontinued Medications Generic Name Dose Route Start Last Admin Trade Name Freq PRN Reason Stop Dose Admin Ondansetron HCl 4 mg 06/15/20 17:07 06/15/20 17:21 Ondansetron 4 Mg Tab.Dis PO 06/15/20 17:08 4 mg ONETIME ONE Administration - Re-Assessments/Exams Free Text/Narrative Re-Assessment/Exam: 06/15/20 18:17 Patient presented today for nausea. Patient was given Zofran as tolerated a 2 bottles of Gatorade in ED. Patient has some slight tachycardia and blood pressure still elevated. Patient is having signs of alcohol withdrawal. We spoke to patient about the plan is to continue drinking patient thinks he will so we will not give patient a Librium. Patient is stable for discharge at this moment. Departure - Departure Time of Disposition: 18:17 Disposition: Home, Self-Care 01 Condition: Good Clinical Impression: Viral illness - Discharge Information *PRESCRIPTION DRUG MONITORING PROGRAM REVIEWED*: Not Applicable *COPY OF PRESCRIPTION DRUG MONITORING REPORT IN PATIENT JULIANNA: Not Applicable Referrals: PCP,None [Primary Care Provider] - Forms: ED Department Discharge Additional Instructions: The following information is given to patients seen in the emergency department who are being discharged to home. This information is to outline your options f or follow-up care. We provide all patients seen in our emergency department with a follow-up referral. The need for follow-up, as well as the timing and circumstances, are variable depending upon the specifics of your emergency department visit. If you don't have a primary care physician on staff, we will provide you with a referral. We always advise you to contact your personal physician following an emergency department visit to inform them of the circumstance of the visit and for follow-up with them and/or the need for any referrals to a consulting specialist. The emergency department will also refer you to a specialist when appropriate. This referral assures that you have the opportunity for follow-up care with a specialist. All of these measure are taken in an effort to provide you with optimal care, which includes your follow-up. Under all circumstances we always encourage you to contact your private physician who remains a resource for coordinating your care. When calling for follow-up care, please make the office aware that this follow-up is from your recent emergency room visit. If for any reason you are refused follow-up, please contact the [facility] Emergency Department at and asked to speak to the emergency department charge nurse. Please follow up with your primary care physician. If you do not have a primary care physician, see below: [facility] [address] [place], [place] [id number] My [facility] [address] [place] [address] Seen today for nausea and not feeling well. We performed a Covid test that was negative. Your blood pressure slightly elevated but she had no symptoms from this elevation and we recommend you follow-up with your primary care physician as you may need to be placed on medication for your blood pressure in the future. You have any complaints of chest pain or other symptoms please return to ED. Sepsis Event Note (ED) - Evaluation Sepsis Screening Result: Possible Sepsis Risk - Focused Exam Vital Signs: Vital Signs Temp Pulse Resp BP Pulse Ox 06/15/20 16:58 97.6 F 111 H 17 166/115 H 95 - Assessment/Plan Plan: Is a 40-year-old male who presents today for nausea and fatigue. Patient also reports being a everyday drinker but has no tremors on examination or signs withdrawal. Patient will be given p.o. Zofran with p.o. fluids and will be tested for Covid so he can return to work if negative.
[2020-06-15 17:57] LABS: BLOOD UREA NITROGEN,BUN 16 mg/dL (7.0-18.0); CARBON DIOXIDE,CO2 26.1 mmol/L (21.0-32.0); CHLORIDE,CL 103 mmol/L (98-107); GLUCOSE RANDOM 90 mg/dL (74-106); SODIUM,NA 139 mmol/L (136-148)
[2020-06-15 18:35] VITALS: BP 149/73; PULSE 101
== END 2020-06-15 18:35 | disposition home or self-care (01) ==
LOC: MW.ED 16:47
DX: B34.9 Viral infection, unspecified (principal); Z20.822 Contact with and (suspected) exposure to COVID-19
CPT/HCPCS: 36415; 80053; 85025; 87635; 99283; A9270; U0002

== ENCOUNTER 2021-01-07 07:40 | Emergency (ER) | payer SELFPAY ==
[2021-01-07 07:54] VITALS: BP 140/86; PULSE 99
[2021-01-07] MEDS ORDERED: Ketorolac 15 MG/ML SDV IM ONE (08:19)
--- NOTE | 2021-01-07 09:29 | CR ---
INDICATION: Trauma; pain and tingling in the hand and wrist. COMPARISON: None. TECHNIQUE: Three-view study right hand. FINDINGS: No evidence of acute fracture or dislocation. No bone or soft tissue abnormalities. IMPRESSION: Negative radiographic examination of the right hand. Dictated by Klever Espana MD @ 01/07/2021 9:28:52 AM (Electronically Signed)
--- NOTE | 2021-01-07 09:32 | CR ---
INDICATION: Trauma. COMPARISON: None. TECHNIQUE: Three-view study right wrist. FINDINGS: No evidence of acute fracture or dislocation. No bone or soft tissue abnormalities. IMPRESSION: Negative radiographic examination of the right wrist. Dictated by Klever Espana MD @ 01/07/2021 9:29:49 AM (Electronically Signed)
--- NOTE | 2021-01-07 09:52 | EDM.PDOC ---
ED HPI GENERAL MEDICAL PROBLEM - General Chief Complaint: Upper Extremity Injury/Pain Stated Complaint: RIGHT KNUCKLES SWOLLEN, FINGERS NUMB Time Seen by Provider: 01/07/21 07:45 - History of Present Illness INITIAL COMMENTS - FREE TEXT/NARRATIVE: CHIEF COMPLAINT(S): Fingers are tingling HISTORY OF PRESENT ILLNESS: This is a 40-year-old man without any reported past medical history who comes to the emergency department with a chief complaint of fingers are tingling. He states this has been going on for approximately 1 week now. He states that the pain he is experiencing is through the wrist radiating up his arm and into his fingertips. He rates his pain as 10 out of 10 at night and in the day it is much better. He says that he tried Tylenol without any relief. He states that it does help mildly with the aches but nothing else. There is no exacerbation of the pain. 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 He states he has never experienced this before. In addition he states that he punched a wall approximately 1 week ago and he feels like his fingers are deformed and is experiencing some swelling. REVIEW OF SYSTEMS: Constitutional: Denies fever, chills. Eyes: Denies eye pain Ears, Nose, Mouth, & Throat: Denies earache Cardiovascular: Denies chest pain Respiratory: Denies shortness of breath Gastrointestinal: Denies Nausea, vomiting, diarrhea, hematochezia. Genitourinary: Denies hematuria Skin:Denies a rash MSK: Positive for right forearm and hand pain Neurological: Positive for tingling of the fingers of the right hand. Denies decreased manager video games strength Psychiatric: Denies depression PAST MEDICAL HISTORY: As per history of present illness and as reviewed below otherwise noncontributory. SURGICAL HISTORY: As per history of present illness and as reviewed below otherwise noncontributory. SOCIAL HISTORY: As per history of present illness and as reviewed below otherwise noncontributory. FAMILY HISTORY: As per history of present illness and as reviewed below otherwise noncontributory. EXAMINATION OF ORGAN SYSTEMS/BODY AREAS: Constitutional: Blood pressure was 140/86, heart rate 99, respiratory rate 16 with an oxygen saturation 97% on room air. Temperature 35 point General: Well-appearing man who is in no acute distress Psychiatric: Appropriate mood and affect. Eyes: No scleral icterus or conjunctival erythema ENMT: Moist mucous membranes. No pharyngeal erythema Cardiovascular: Regular, rate, and rhythm. No gallops, murmurs, or rubs. Bilateral upper extremity pulses symmetric and intact. Respiratory: Lungs clear to auscultation bilaterally. No wheezes, rales, or rhonchi. Gastrointestinal: Soft, non-tender, non-distended. Normoactive bowel sounds Genitourinary: No suprapubic tenderness Musculoskeletal: Normal range of motion.. Tenderness to palpation along the medial part of the wrist near the carpal tunnel. This does exacerbate the patient's symptoms. Patient's manager video games strength is normal bilaterally. No muscle atrophy of the left hand or right hand. No deformity. Skin: No lesions or abrasions. Neurological: Alert, GCS 15 distal sensation is intact. MEDICAL DECISION MAKING AND COURSE IN THE ED WITH INTERPRETATION/REVIEW OF DIAGNOSTIC STUDIES: This is a 40-year-old man on without any significant past medical history who comes to the emergency department with what appears to be carpal tunnel syndrome which is likely given the patient's profession. I did discuss treatment for this including placement of a wrist splint that he purchased [id number]. Given he punched a wall we will obtain a hand and wrist x-ray to evaluate for fracture. Patient was amenable to this plan. We will provide the patient with Toradol for pain relief. The radiological images were viewed by myself along with reading the report from the radiologist. Right hand x-ray does not reveal a fracture or dislocation. Right wrist x-ray does not rule any fracture or dislocation. After imaging i did discuss the results with the patient. At this time I did discuss symptomatic treatment with the patient. I dicussed he should follow up with PCP for further evaluation if no improvement. He was amenable to discharge and had no further questions. DISPOSITION: The patient was discharged home in stable condition. The patient will follow up with pcp within 3-5 days CONDITION: fair PROCEDURES: None FINAL IMPRESSION(S)/DIAGNOSES: 1. Acute carpal tunnel syndrome Hema Salinas M.D. right hand Pain Score (Numeric/FACES): 9 - Related Data Allergies Allergy/AdvReac Type Severity Reaction Status Date / Time No Known Allergies Allergy Verified 06/15/20 16:57 Home Meds: Home Meds . [No Known Home Meds] 06/15/20 [History] Past Medical History - Past Health History Medical/Surgical History: Denies Medical/Surgical History HEENT History: Reports: None Cardiovascular History: Reports: None Respiratory History: Reports: None Other Respiratory History: Pulmondary Nodule 10/2019 Gastrointestinal History: Reports: Fatty Liver, GI Bleed, Helicobacter Pylori, Hiatal Hernia, Other (See Below) Other Gastrointestinal History: gastroenteritis, stomach Ulcers Genitourinary History: Reports: Renal Calculus Musculoskeletal History: Reports: None Neurological History: Reports: None Psychiatric History: Reports: None Endocrine/Metabolic History: Reports: None Hematologic History: Reports: None Immunologic History: Reports: None Oncologic (Cancer) History: Reports: None Dermatologic History: Reports: None - Infectious Disease History Infectious Disease History: Reports: None - Past Surgical History Head Surgeries/Procedures: Reports: None HEENT Surgical History: Reports: None Cardiovascular Surgical History: Reports: None Respiratory Surgical History: Reports: None GI Surgical History: Reports: None Male Surgical History: Reports: None Endocrine Surgical History: Reports: None Neurological Surgical History: Reports: None Musculoskeletal Surgical History: Reports: None Oncologic Surgical History: Reports: None Dermatological Surgical History: Reports: None Social & Family History - Family History Family Medical History: No Pertinent Family History - Tobacco Use Tobacco Use Status *Q: Former Tobacco User Used Tobacco, but Quit: Yes Month/Year Tobacco Last Used: 02/2017 - Caffeine Use Caffeine Use: Reports: Coffee - Alcohol Use Days Per Week of Alcohol Use: 4 Number of Drinks Per Day: 6 Total Drinks Per Week: 24 - Recreational Drug Use Recreational Drug Use: No Review of Systems - Review of Systems Review Of Systems: See Below ED EXAM, GENERAL - Physical Exam Exam: See Below Course - Vital Signs Last Recorded V/S: Last Vital Signs Temp 35.6 C L 01/07/21 07:49 Pulse 99 01/07/21 07:49 Resp 16 01/07/21 07:49 BP 140/86 01/07/21 07:49 Pulse Ox 97 01/07/21 07:49 - Orders/Labs/Meds Meds: Medications Discontinued Medications Generic Name Dose Route Start Last Admin Trade Name Freq PRN Reason Stop Dose Admin Ketorolac Tromethamine 30 mg 01/07/21 08:19 01/07/21 08:50 Ketorolac 15 Mg/Ml Sdv IM 01/07/21 08:20 30 mg ONETIME ONE Administration Departure - Departure Time of Disposition: 09:50 Disposition: Home, Self-Care 01 Condition: Fair Clinical Impression: Carpal tunnel syndrome - Discharge Information *PRESCRIPTION DRUG MONITORING PROGRAM REVIEWED*: No *COPY OF PRESCRIPTION DRUG MONITORING REPORT IN PATIENT JULIANNA: No Instructions: Preventing Carpal Tunnel Syndrome, Carpal Tunnel Syndrome, [id number] Referrals: PCP,None [Primary Care Provider] - Forms: ED Department Discharge Additional Instructions: You were evaluated today on an emergent basis. At this time your imaging of your hand and wrist did not reveal any broken bones. I do believe your symptoms are secondary to carpal tunnel syndrome. I recommend that you use ibuprofen 400 mg to 600 mg every 6 hours alternating with Tylenol 500 mg to 1000 mg every 6 hours. As discussed I would like you to buy a carpal tunnel/wrist splints that you can wear at night so that your wrist does not bend and your symptoms can improve. I recommend you follow-up with your primary care physician within 3 to 5 days for reevaluation and possible referral for further intervention. If you have any worsening symptoms such as inability to manager video games and start to drop things I would like you to return to the emergency department. [facility] [address] [place] [address] [place] [address] The patient is informed of any results of their evaluation and diagnostic workup and all questions are answered. They are given discharge instructions and return precautions. The patient is stable for discharge. The patient states they understand and agree with the plan and that they will return if their symptoms get worse or if they have any new concerns. The following information is given to patients seen in the emergency department who are being discharged to home. This information is to outline your options for follow-up care. We provide all patients seen in our emergency department with a follow-up referral. The need for follow-up, as well as the timing and circumstances, are variable depending upon the specifics of your emergency department visit. If you don't have a primary care physician on staff, we will provide you with a referral. We always advise you to contact your personal physician following an emergency department visit to inform them of the circumstance of the visit and for follow-up with them and/or the need for any referrals to a consulting specialist. The emergency department will also refer you to a specialist when appropriate. This referral assures that you have the opportunity for follow-up care with a specialist. All of these measure are taken in an effort to provide you with optimal care, which includes your follow-up. Under all circumstances we always encourage you to contact your private physician who remains a resource for coordinating your care. When calling for follow-up care, please make the office aware that this follow-up is from your recent emergency room visit. If for any reason you are refused follow-up, please contact the [facility] Emergency Department at and asked to speak to the emergency department charge nurse. Sepsis Event Note (ED) - Evaluation Sepsis Screening Result: No Definite Risk
== END 2021-01-07 10:08 | disposition home or self-care (01) ==
LOC: MW.ED 07:40
DX: G56.01 Carpal tunnel syndrome, right upper limb (principal); Z87.891 Personal history of nicotine dependence
CPT/HCPCS: 73110; 73130; 96372; 99284; J1885

== ENCOUNTER 2021-04-11 10:28 | Emergency (ER) | payer SELFPAY ==
[2021-04-11] MEDS ORDERED: Ibuprofen 600 MG Tab PO ONE (10:49)
[2021-04-11] MEDS ORDERED: traMADol 50 MG Tab PO ONE (10:49)
[2021-04-11 11:54] VITALS: BP 152/104; PULSE 81
== END 2021-04-11 11:56 | disposition home or self-care (01) ==
LOC: MW.ED 10:28
DX: S86.111A Strain of other muscle(s) and tendon(s) of posterior muscle group at lower leg level, right leg, initial encounter (principal); M66.0 Rupture of popliteal cyst
CPT/HCPCS: 93971; 99283; A9270

== ENCOUNTER 2021-05-02 18:10 | Emergency (ER) | payer SELFPAY ==
[2021-05-02] MEDS ORDERED: Ibuprofen 600 MG Tab PO ONE (18:28)
[2021-05-02] MEDS: Acetaminophen/oxyCODONE 325-5 MG Tab PO ONE ×2 (18:34→18:36)
[2021-05-02 19:42] VITALS: BP 148/88; PULSE 71
== END 2021-05-02 19:44 | disposition home or self-care (01) ==
LOC: MW.ED 18:10
DX: S93.401A Sprain of unspecified ligament of right ankle, initial encounter (principal); X50.1XXA Overexertion from prolonged static or awkward postures, initial encounter
CPT/HCPCS: 73610; 99283; A9270

== ENCOUNTER 2021-09-16 12:54 | Emergency (ER) | payer SELFPAY ==
[2021-09-16] MEDS ORDERED: Ketorolac 30 MG/ML SDV IM STA (12:57)
[2021-09-16] MEDS ORDERED: Acetaminophen 500 MG Tab PO ONE (14:03)
[2021-09-16] MEDS ORDERED: Sodium Chloride 0.9% 1,000 ML IV ONE (14:03)
[2021-09-16 14:04] VITALS: BP 128/89; PULSE 106
[2021-09-16] MEDS ORDERED: Ondansetron 4 MG/2 ML SDV IVPUSH ONE (14:11)
[2021-09-16 15:26] LABS: CARBON DIOXIDE,CO2 25.1 mmol/L (21.0-32.0); POTASSIUM,K 5.2 mmol/L (3.5-5.1)
== END 2021-09-16 16:32 | disposition home or self-care (01) ==
LOC: MW.ED 12:54
DX: K70.10 Alcoholic hepatitis without ascites (principal); E86.0 Dehydration; N19 Unspecified kidney failure; R25.2 Cramp and spasm
CPT/HCPCS: 36415; 80053; 81001; 82550; 85025; 87086; 96361; 96374; 99284; A9270; J2405; J7030

== ENCOUNTER 2021-11-28 12:37 | Emergency (ER) | payer SELFPAY | END 2021-11-28 14:00 | LOC: MW.ED 12:37 | DX: Z53.21 Procedure and treatment not carried out due to patient leaving prior to being seen by health care provider (principal) ==

== ENCOUNTER 2022-02-01 07:21 | Emergency (ER) | payer SELFPAY ==
[2022-02-01 09:57] VITALS: BP 166/120; PULSE 70
== END 2022-02-01 09:57 | disposition home or self-care (01) ==
LOC: MW.ED 07:21
DX: S89.82XA Other specified injuries of left lower leg, initial encounter (principal); Z87.891 Personal history of nicotine dependence; X50.9XXA Other and unspecified overexertion or strenuous movements or postures, initial encounter
CPT/HCPCS: 73562-26-LT; 73562-LT; 99284

== ENCOUNTER 2022-07-24 11:01 | Emergency (ER) | payer SELFPAY ==
[2022-07-24] MEDS ORDERED: Ketorolac 30 MG/ML SDV IVPUSH ONE (11:29)
[2022-07-24] MEDS ORDERED: Sodium Chloride 0.9% 2.5 ML Syringe FLUSH PRN (11:29)
[2022-07-24] MEDS ORDERED: Sodium Chloride 0.9% 1,000 ML IV ONE (11:29)
[2022-07-24] MEDS ORDERED: Sodium Chloride 0.9% 10 ML Syringe FLUSH PRN (11:29)
[2022-07-24] MEDS ORDERED: Ondansetron 4 MG/2 ML SDV IVPUSH ONE (11:29)
[2022-07-24 11:46] LABS: BASOPHILS PERCENT AUTO 0.4 % (0.0-1.5); EOSINOPHILS ABSOLUTE AUTO 0.2 K/uL (0.0-0.7); EOSINOPHILS PERCENT AUTO 2.3 % (0.0-7.0); LYMPHOCYTES ABSOLUTE AUTO 1.9 K/uL (0.6-2.4); LYMPHOCYTES PERCENT AUTO 25.3 % (16.0-40.0); MEAN CORPUSCULAR HEMOGLOBIN 31.2 pg (27.0-32.0); MEAN CORPUSCULAR HGB CONC 33.3 g/dL (31.0-37.0); MEAN CORPUSCULAR VOLUME 93.6 fL (80.0-98.0); MONOCYTES ABSOLUTE AUTO 0.9 K/uL (0.0-0.8); MONOCYTES PERCENT AUTO 12.4 % (0.0-15.0); NEUTROPHILS ABSOLUTE AUTO 4.5 K/uL (1.4-5.7); NEUTROPHILS PERCENT AUTO 59.6 % (48.0-80.0); PLATELET COUNT,PLT 254 K/uL (150-400); RED BLOOD CELL COUNT 5.45 M/uL (4.50-5.90)
[2022-07-24 11:46] LABS: APPEARANCE,URINE CLEAR; BILIRUBIN,URINE NEGATIVE (NEGATIVE); COLOR,URINE YELLOW; GLUCOSE,URINE NEGATIVE (NEGATIVE); KETONES,URINE NEGATIVE (NEGATIVE); LEUKOCYTE ESTERASE,URINE NEGATIVE (NEGATIVE); NITRITE,URINE NEGATIVE (NEGATIVE); OCCULT BLOOD,URINE NEGATIVE (NEGATIVE); PH,URINE 6.5 (5.0-8.0); PROTEIN,URINE NEGATIVE (NEGATIVE); UROBILINOGEN,URINE 0.2 EU/dL (<2.0)
[2022-07-24 11:59] LABS: A/G RATIO 0.8 (0.9-1.6); ALBUMIN 3.8 g/dL (3.4-5.0); BILIRUBIN TOTAL 0.7 mg/dL (0.2-1.0); CALCIUM 9.4 mg/dL (8.5-10.1); CARBON DIOXIDE,CO2 27.2 mmol/L (21.0-32.0); CREATININE 1.2 mg/dL (0.8-1.3); EST CRCL DRUG DOSING (CG) 80.19 mL/min; POTASSIUM,K 4.2 mmol/L (3.5-5.1); PROTEIN TOTAL,TP 8.5 g/dL (6.4-8.2)
[2022-07-24] MEDS ORDERED: Iopamidol 755 MG/ML 500 ML Multipack Bottle IVPUSH ONE (13:27)
[2022-07-24 16:19] VITALS: BP 134/82; PULSE 79
== END 2022-07-24 16:18 | disposition home or self-care (01) ==
LOC: MW.ED 11:01
DX: K82.8 Other specified diseases of gallbladder (principal); K76.0 Fatty (change of) liver, not elsewhere classified
CPT/HCPCS: 36415; 74177; 76705; 80053; 81003; 83690; 85025; 96361; 96374; 96375; 99284; J1885; J2405; J3490; J7030; Q9967

== ENCOUNTER 2022-12-25 10:23 | Emergency (ER) | payer SELFPAY ==
[2022-12-25] MEDS ORDERED: diphenhydrAMINE 50 MG/ML SDV IVPUSH ONE (10:33)
[2022-12-25] MEDS ORDERED: Metoclopramide 10 MG/2 ML SDV IVPUSH ONE (10:33)
[2022-12-25] MEDS ORDERED: Sodium Chloride 0.9% 1,000 ML IV ONE (10:33)
[2022-12-25] MEDS ORDERED: Ketorolac 30 MG/ML SDV IVPUSH ONE (10:33)
[2022-12-25] MEDS ORDERED: Ondansetron 4 MG/2 ML SDV IVPUSH ONE (10:33)
[2022-12-25 11:11] LABS: BASOPHILS ABSOLUTE AUTO 0.07 K/uL (0.00-0.20); BASOPHILS PERCENT AUTO 1.1 % (0.0-1.0); EOSINOPHILS ABSOLUTE AUTO 0.18 K/uL (0.00-0.45); EOSINOPHILS PERCENT AUTO 2.9 % (0.0-6.0); HEMATOCRIT 49.6 % (42.0-52.0); HEMOGLOBIN 16.9 g/dL (14.0-18.0); IMMATURE GRAN ABSOLUTE AUTO 0.01 K/uL (0.00-0.05); IMMATURE GRAN PERCENT AUTO 0.2 % (0.0-0.4); LYMPHOCYTES ABSOLUTE AUTO 1.75 K/uL (1.00-4.80); LYMPHOCYTES PERCENT AUTO 28.2 % (24.0-44.0); MEAN CORPUSCULAR HEMOGLOBIN 32.6 pg (28.0-32.0); MEAN CORPUSCULAR HGB CONC 34.1 g/dL (32.0-36.0); MEAN CORPUSCULAR VOLUME 95.6 fL (83.0-99.0); MEAN PLATELET VOLUME 9.8 fL (9.4-12.4); MONOCYTES PERCENT AUTO 12.9 % (0.0-8.0); NEUTROPHILS PERCENT AUTO 54.7 % (41.0-71.0); PLATELET COUNT,PLT 201 K/uL (150-400); RED BLOOD CELL COUNT 5.19 M/uL (4.52-5.90); WHITE BLOOD CELL COUNT,WBC 6.21 K/uL (3.9-11.3)
[2022-12-25 11:35] LABS: A/G RATIO 0.8 (0.9-1.6); ALBUMIN 3.7 g/dL (3.4-5.0); BILIRUBIN TOTAL 0.4 mg/dL (0.2-1.0); CALCIUM 9.9 mg/dL (8.5-10.1); CARBON DIOXIDE,CO2 28.3 mmol/L (21.0-32.0); CREATININE 1.1 mg/dL (0.8-1.3); EST CRCL DRUG DOSING (CG) 90.33 mL/min; POTASSIUM,K 4.1 mmol/L (3.5-5.1); PROTEIN TOTAL,TP 8.5 g/dL (6.4-8.2)
[2022-12-25] MEDS ORDERED: Lisinopril 10 MG Tab PO ONE (11:44)
[2022-12-25 11:55] LABS: CORONAVIRUS COVID-19 NAA NEGATIVE (NEGATIVE); INFLUENZA A NAA NEGATIVE (NEGATIVE); INFLUENZA B NAA NEGATIVE (NEGATIVE)
[2022-12-25 12:57] VITALS: BP 149/109; PULSE 79
== END 2022-12-25 13:14 | disposition home or self-care (01) ==
LOC: MW.ED 10:23
DX: G43.909 Migraine, unspecified, not intractable, without status migrainosus (principal); R10.10 Upper abdominal pain, unspecified; I10 Essential (primary) hypertension; Z79.899 Other long term (current) drug therapy; Z20.822 Contact with and (suspected) exposure to COVID-19
CPT/HCPCS: 0240U; 36415; 80053; 83690; 85025; 93005; 96361; 96374; 96375; 99284; A9270; J1200; J1885; J2405; J2765; J7030; 93010

== ENCOUNTER 2023-01-02 09:54 | Emergency (ER) | payer SELFPAY ==
[2023-01-02] MEDS ORDERED: Sodium Chloride 0.9% 1,000 ML IV ONE (10:10)
[2023-01-02] MEDS ORDERED: diphenhydrAMINE 50 MG/ML SDV IVPUSH ONE (10:11)
[2023-01-02] MEDS ORDERED: Metoclopramide 10 MG/2 ML SDV IVPUSH ONE (10:11)
[2023-01-02] MEDS ORDERED: Dexamethasone 10 MG/ML SDV IVPUSH ONE (10:11)
[2023-01-02] MEDS ORDERED: Lisinopril 10 MG Tab PO ONE (10:13)
[2023-01-02 10:21] LABS: BASOPHILS ABSOLUTE AUTO 0.06 K/uL (0.00-0.20); BASOPHILS PERCENT AUTO 0.8 % (0.0-1.0); EOSINOPHILS ABSOLUTE AUTO 0.17 K/uL (0.00-0.45); EOSINOPHILS PERCENT AUTO 2.2 % (0.0-6.0); HEMATOCRIT 49.8 % (42.0-52.0); HEMOGLOBIN 16.9 g/dL (14.0-18.0); IMMATURE GRAN ABSOLUTE AUTO 0.01 K/uL (0.00-0.05); IMMATURE GRAN PERCENT AUTO 0.1 % (0.0-0.4); LYMPHOCYTES ABSOLUTE AUTO 2.83 K/uL (1.00-4.80); LYMPHOCYTES PERCENT AUTO 37.1 % (24.0-44.0); MEAN CORPUSCULAR HEMOGLOBIN 32.3 pg (28.0-32.0); MEAN CORPUSCULAR HGB CONC 33.9 g/dL (32.0-36.0); MEAN PLATELET VOLUME 10.4 fL (9.4-12.4); MONOCYTES ABSOLUTE AUTO 0.94 K/uL (0.00-0.80); MONOCYTES PERCENT AUTO 12.3 % (0.0-8.0); NEUTROPHILS ABSOLUTE AUTO 3.61 K/uL (1.80-7.70); NEUTROPHILS PERCENT AUTO 47.5 % (41.0-71.0); PLATELET COUNT,PLT 251 K/uL (150-400); RED BLOOD CELL COUNT 5.24 M/uL (4.52-5.90); WHITE BLOOD CELL COUNT,WBC 7.62 K/uL (3.9-11.3)
[2023-01-02 10:40] LABS: A/G RATIO 0.8 (0.9-1.6); ALBUMIN 3.9 g/dL (3.4-5.0); BILIRUBIN TOTAL 0.6 mg/dL (0.2-1.0); CALCIUM 9.2 mg/dL (8.5-10.1); CARBON DIOXIDE,CO2 34.4 mmol/L (21.0-32.0); CREATININE 1.1 mg/dL (0.8-1.3); EST CRCL DRUG DOSING (CG) 90.33 mL/min; MAGNESIUM 2.2 mg/dL (1.8-2.4); POTASSIUM,K 4.3 mmol/L (3.5-5.1); PROTEIN TOTAL,TP 8.7 g/dL (6.4-8.2)
[2023-01-02 11:16] LABS: HEMOGLOBIN A1C 5.6 %
[2023-01-02 12:39] LABS: APPEARANCE,URINE CLEAR; BILIRUBIN,URINE NEGATIVE (NEGATIVE); COLOR,URINE YELLOW; GLUCOSE,URINE NEGATIVE (NEGATIVE); KETONES,URINE NEGATIVE (NEGATIVE); LEUKOCYTE ESTERASE,URINE TRACE (NEGATIVE); NITRITE,URINE NEGATIVE (NEGATIVE); OCCULT BLOOD,URINE NEGATIVE (NEGATIVE); PH,URINE 8.5 (5.0-8.0); PROTEIN,URINE NEGATIVE (NEGATIVE); UROBILINOGEN,URINE 0.2 EU/dL (<2.0)
[2023-01-02 13:17] LABS: BACTERIA,URINE RARE (NEGATIVE); EPITHELIAL CELLS,URINE RARE (NONE-FEW); RBC,URINE 0-1 (0-2/HPF); WBC,URINE 0-3 (0-5/HPF)
[2023-01-02 13:44] VITALS: BP 158/100; PULSE 86
== END 2023-01-02 13:45 | disposition home or self-care (01) ==
LOC: MW.ED 09:54
DX: R51.9 Headache, unspecified (principal); I10 Essential (primary) hypertension; Z79.899 Other long term (current) drug therapy
CPT/HCPCS: 36415; 70450; 80053; 81001; 83036; 83735; 85025; 87086; 96361; 96374; 96375; 99284; A9270; J1100; J1200; J2765; J7030

== ENCOUNTER 2023-06-14 15:19 | Emergency (ER) | payer SELFPAY ==
[2023-06-14] MEDS: Lidocaine 4% 1 each Patch TOP STA (15:58)
[2023-06-14] MEDS: Orphenadrine 60 MG/2 ML Inj IM ONE (15:59)
[2023-06-14] MEDS: Ketorolac 30 MG/ML SDV IM ONE (15:59)
[2023-06-14 17:09] LABS: APPEARANCE,URINE CLEAR; BILIRUBIN,URINE NEGATIVE (NEGATIVE); COLOR,URINE YELLOW; GLUCOSE,URINE NEGATIVE (NEGATIVE); KETONES,URINE NEGATIVE (NEGATIVE); LEUKOCYTE ESTERASE,URINE TRACE (NEGATIVE); NITRITE,URINE NEGATIVE (NEGATIVE); OCCULT BLOOD,URINE NEGATIVE (NEGATIVE); PROTEIN,URINE NEGATIVE (NEGATIVE); UROBILINOGEN,URINE 0.2 EU/dL (<2.0)
[2023-06-14 17:17] LABS: BACTERIA,URINE FEW (NEGATIVE); EPITHELIAL CELLS,URINE RARE (NONE-FEW); MUCUS,URINE MODERATE (NONE-MOD); RBC,URINE 0-2 (0-2/HPF)
[2023-06-14 17:38] VITALS: BP 166/114; PULSE 82
== END 2023-06-14 17:47 | disposition home or self-care (01) ==
LOC: MW.ED 15:19
DX: M54.6 Pain in thoracic spine (principal); Z75.8 Other problems related to medical facilities and other health care; Z79.899 Other long term (current) drug therapy; Z87.891 Personal history of nicotine dependence; X50.0XXA Overexertion from strenuous movement or load, initial encounter; Y93.89 Activity, other specified
CPT/HCPCS: 72072; 72100; 81001; 81003; 87086; 96372; 99283; A9270; J1885; J2360

== ENCOUNTER 2023-07-19 20:02 | Emergency (ER) | payer SELFPAY ==
[2023-07-19 23:14] VITALS: BP 156/107; PULSE 118
== END 2023-07-19 20:49 ==
LOC: MW.ED 20:02
DX: I10 Essential (primary) hypertension (principal); Z75.8 Other problems related to medical facilities and other health care; Z79.899 Other long term (current) drug therapy
CPT/HCPCS: 99283

== ENCOUNTER 2023-07-21 10:35 | Emergency (ER) | payer SELFPAY ==
[2023-07-21] MEDS: Lisinopril 10 MG Tab PO ONE (11:02)
[2023-07-21 11:11] LABS: BASOPHILS ABSOLUTE AUTO 0.04 K/uL (0.00-0.20); BASOPHILS PERCENT AUTO 0.6 % (0.0-1.0); EOSINOPHILS ABSOLUTE AUTO 0.12 K/uL (0.00-0.45); EOSINOPHILS PERCENT AUTO 1.9 % (0.0-6.0); HEMATOCRIT 45.8 % (42.0-52.0); IMMATURE GRAN ABSOLUTE AUTO 0.01 K/uL (0.00-0.05); IMMATURE GRAN PERCENT AUTO 0.2 % (0.0-0.4); LYMPHOCYTES ABSOLUTE AUTO 1.72 K/uL (1.00-4.80); LYMPHOCYTES PERCENT AUTO 27.9 % (24.0-44.0); MEAN CORPUSCULAR HEMOGLOBIN 32.9 pg (28.0-32.0); MEAN CORPUSCULAR HGB CONC 34.9 g/dL (32.0-36.0); MEAN PLATELET VOLUME 10.2 fL (9.4-12.4); MONOCYTES ABSOLUTE AUTO 0.84 K/uL (0.00-0.80); MONOCYTES PERCENT AUTO 13.6 % (0.0-8.0); NEUTROPHILS ABSOLUTE AUTO 3.44 K/uL (1.80-7.70); NEUTROPHILS PERCENT AUTO 55.8 % (41.0-71.0); PLATELET COUNT,PLT 198 K/uL (150-400); RED BLOOD CELL COUNT 4.87 M/uL (4.52-5.90); WHITE BLOOD CELL COUNT,WBC 6.17 K/uL (3.9-11.3)
[2023-07-21 11:36] LABS: A/G RATIO 0.8 (0.9-1.6); ALBUMIN 3.6 g/dL (3.4-5.0); CALCIUM 9.6 mg/dL (8.5-10.1); CARBON DIOXIDE,CO2 26.3 mmol/L (21.0-32.0); CREATININE 1.1 mg/dL (0.8-1.3); EST CRCL DRUG DOSING (CG) 86.59 mL/min; PROTEIN TOTAL,TP 8.2 g/dL (6.4-8.2)
[2023-07-21 12:04] LABS: APPEARANCE,URINE CLEAR; BILIRUBIN,URINE NEGATIVE (NEGATIVE); COLOR,URINE YELLOW; GLUCOSE,URINE NEGATIVE (NEGATIVE); KETONES,URINE NEGATIVE (NEGATIVE); LEUKOCYTE ESTERASE,URINE NEGATIVE (NEGATIVE); NITRITE,URINE NEGATIVE (NEGATIVE); OCCULT BLOOD,URINE NEGATIVE (NEGATIVE); PROTEIN,URINE NEGATIVE (NEGATIVE); UROBILINOGEN,URINE 0.2 EU/dL (<2.0)
[2023-07-21 12:29] VITALS: BP 145/107
[2023-07-21 12:33] VITALS: PULSE 85
== END 2023-07-21 12:31 | disposition home or self-care (01) ==
LOC: MW.ED 10:35
DX: I10 Essential (primary) hypertension (principal); Z75.8 Other problems related to medical facilities and other health care; Z79.899 Other long term (current) drug therapy; Z87.891 Personal history of nicotine dependence
CPT/HCPCS: 36415; 80053; 81003; 85025; 99284; A9270; 93005; 93010; 99283

== ENCOUNTER 2024-07-25 14:10 | Emergency (ER) | payer SELFPAY ==
[2024-07-25] MEDS: Labetalol 100 MG/20 ML MDV IVPUSH ONE (14:33)
[2024-07-25 14:38] LABS: BASOPHILS ABSOLUTE AUTO 0.06 K/uL (0.00-0.20); BASOPHILS PERCENT AUTO 0.8 % (0.0-1.0); EOSINOPHILS ABSOLUTE AUTO 0.29 K/uL (0.00-0.45); EOSINOPHILS PERCENT AUTO 3.9 % (0.0-6.0); HEMATOCRIT 49.2 % (42.0-52.0); HEMOGLOBIN 16.9 g/dL (14.0-18.0); IMMATURE GRAN ABSOLUTE AUTO 0.01 K/uL (0.00-0.05); IMMATURE GRAN PERCENT AUTO 0.1 % (0.0-0.4); LYMPHOCYTES ABSOLUTE AUTO 2.48 K/uL (1.00-4.80); LYMPHOCYTES PERCENT AUTO 33.6 % (24.0-44.0); MEAN CORPUSCULAR HEMOGLOBIN 32.4 pg (28.0-32.0); MEAN CORPUSCULAR HGB CONC 34.3 g/dL (32.0-36.0); MEAN CORPUSCULAR VOLUME 94.4 fL (83.0-99.0); MEAN PLATELET VOLUME 10.1 fL (9.4-12.4); MONOCYTES ABSOLUTE AUTO 0.64 K/uL (0.00-0.80); MONOCYTES PERCENT AUTO 8.7 % (0.0-8.0); NEUTROPHILS ABSOLUTE AUTO 3.89 K/uL (1.80-7.70); NEUTROPHILS PERCENT AUTO 52.9 % (41.0-71.0); PLATELET COUNT,PLT 210 K/uL (150-400); RED BLOOD CELL COUNT 5.21 M/uL (4.52-5.90); WHITE BLOOD CELL COUNT,WBC 7.37 K/uL (3.9-11.3)
[2024-07-25 14:57] LABS: INR 1.07 (0.86-1.11)
[2024-07-25 15:07] LABS: A/G RATIO 0.8 (0.9-1.6); ALANINE AMINOTRANSFERASE,ALT 64 IU/L (14-63); ALBUMIN 3.5 g/dL (3.4-5.0); ALKALINE PHOSPHATASE 108 U/L (46-116); ASPARTATE AMNIOTRANSFERASE,AST 69 IU/L (15-37); BILIRUBIN TOTAL 0.5 mg/dL (0.2-1.0); BLOOD UREA NITROGEN,BUN 10 mg/dL (7.0-18.0); CALCIUM 8.7 mg/dL (8.5-10.1); CARBON DIOXIDE,CO2 30.1 mmol/L (21.0-32.0); CHLORIDE,CL 100 mmol/L (98-107); CHOLESTEROL HDL 63 mg/dL (40-60); CHOLESTEROL LDL CALCULATED 135 mg/dL (60-180); CHOLESTEROL TOTAL 223 mg/dL (50-200); CREATININE 1.2 mg/dL (0.8-1.3); EST CRCL DRUG DOSING (CG) 78.56 mL/min; ETHANOL BLOOD MEDICAL <3 mg/dL; GLUCOSE RANDOM 125 mg/dL (74-106); MAGNESIUM 1.8 mg/dL (1.8-2.4); POTASSIUM,K 3.9 mmol/L (3.5-5.1); PRO B-TYPE NATRIUR PEPT,BNPPRO 20 pg/mL (0-125); PROTEIN TOTAL,TP 7.7 g/dL (6.4-8.2); SODIUM,NA 138 mmol/L (136-148); TRIGLYCERIDES 124 mg/dL (0-200); VLDL CHOLESTEROL 24 mg/dL (5-55)
[2024-07-25 15:10] LABS: ESTIMATED GFR 76 mL/min (>60)
[2024-07-25] MEDS: Iopamidol 755 MG/ML 500 ML Multipack Bottle IVPUSH STA (15:23)
[2024-07-25] MEDS: Meclizine 25 MG Tab PO ONE (15:37)
[2024-07-25] MEDS: Sodium Chloride 0.9% 1,000 ML IV ONE (15:37)
[2024-07-25 15:44] VITALS: PULSE 94
[2024-07-25 16:08] LABS: APPEARANCE,URINE CLEAR; BILIRUBIN,URINE NEGATIVE (NEGATIVE); COLOR,URINE YELLOW; GLUCOSE,URINE NEGATIVE (NEGATIVE); KETONES,URINE NEGATIVE (NEGATIVE); LEUKOCYTE ESTERASE,URINE NEGATIVE (NEGATIVE); NITRITE,URINE NEGATIVE (NEGATIVE); OCCULT BLOOD,URINE NEGATIVE (NEGATIVE); PROTEIN,URINE NEGATIVE (NEGATIVE); UROBILINOGEN,URINE 0.2 EU/dL (<2.0)
[2024-07-25 16:17] LABS: AMPHETAMINES SCREEN, URINE NEGATIVE (CUTOFF=500); BARBITURATE SCREEN,URINE NEGATIVE (CUTOFF=200); BENZODIAZEPINES SCREEN,URINE NEGATIVE (CUTOFF=150); BUPRENORPHINE SCREEN,URINE NEGATIVE (CUTOFF=10); METHADONE SCREEN, URINE NEGATIVE (CUTOFF=200); METHAMPHETAMINES SCREEN, URINE NEGATIVE (CUTOFF=500); OXYCODONE SCREEN,URINE NEGATIVE (CUT0FF=100); PCP SCREEN,URINE NEGATIVE (CUTOFF=25); THC SCREEN,URINE 20 NG/ML NEGATIVE (CUTOFF=50)
[2024-07-25] MEDS ORDERED: Hydrochlorothiazide 25 MG Tab PO ONE (16:30)
[2024-07-25] MEDS ORDERED: Labetalol 100 MG/20 ML MDV IVPUSH ONE (16:31)
[2024-07-25 16:53] VITALS: BP 158/106
[2024-07-26] MEDS ORDERED: Hydrochlorothiazide 12.5 MG Cap PO ONE (16:19)
== END 2024-07-25 16:52 | disposition home or self-care (01) ==
LOC: MW.ED 14:10
DX: I10 Essential (primary) hypertension (principal); R94.5 Abnormal results of liver function studies; E78.00 Pure hypercholesterolemia, unspecified; Z79.899 Other long term (current) drug therapy; Z91.148 Patient's other noncompliance with medication regimen for other reason
CPT/HCPCS: 36415; 70450; 70496; 70498; 71045; 80053; 80061; 80305; 80307; 81003; 83735; 83880; 84484; 85025; 85610; 93005; 96361; 96374; 99285; A9270; J1920; J7030; Q9967; 93010; 99284

== ENCOUNTER 2024-07-29 11:55 | Emergency (ER) | payer SELFPAY ==
[2024-07-29] MEDS: Aspirin 81 MG Tab.Chew PO ONE (12:30)
[2024-07-29] MEDS: Sodium Chloride 0.9% 1,000 ML IV ONE (12:31)
[2024-07-29 12:58] LABS: BASOPHILS ABSOLUTE AUTO 0.07 K/uL (0.00-0.20); BASOPHILS PERCENT AUTO 0.7 % (0.0-1.0); EOSINOPHILS PERCENT AUTO 1.9 % (0.0-6.0); HEMATOCRIT 53.4 % (42.0-52.0); HEMOGLOBIN 18.1 g/dL (14.0-18.0); IMMATURE GRAN ABSOLUTE AUTO 0.04 K/uL (0.00-0.05); IMMATURE GRAN PERCENT AUTO 0.4 % (0.0-0.4); LYMPHOCYTES ABSOLUTE AUTO 2.03 K/uL (1.00-4.80); LYMPHOCYTES PERCENT AUTO 19.2 % (24.0-44.0); MEAN CORPUSCULAR HEMOGLOBIN 32.5 pg (28.0-32.0); MEAN CORPUSCULAR HGB CONC 33.9 g/dL (32.0-36.0); MEAN CORPUSCULAR VOLUME 95.9 fL (83.0-99.0); MEAN PLATELET VOLUME 10.2 fL (9.4-12.4); MONOCYTES PERCENT AUTO 8.5 % (0.0-8.0); NEUTROPHILS ABSOLUTE AUTO 7.33 K/uL (1.80-7.70); NEUTROPHILS PERCENT AUTO 69.3 % (41.0-71.0); PLATELET COUNT,PLT 218 K/uL (150-400); RED BLOOD CELL COUNT 5.57 M/uL (4.52-5.90); WHITE BLOOD CELL COUNT,WBC 10.57 K/uL (3.9-11.3)
[2024-07-29] MEDS: Iopamidol 755 MG/ML 500 ML Multipack Bottle IVPUSH STA (13:16)
[2024-07-29 13:32] LABS: A/G RATIO 0.8 (0.9-1.6); ALANINE AMINOTRANSFERASE,ALT 54 IU/L (14-63); ALBUMIN 3.9 g/dL (3.4-5.0); ALKALINE PHOSPHATASE 105 U/L (46-116); ASPARTATE AMNIOTRANSFERASE,AST 49 IU/L (15-37); BILIRUBIN TOTAL 1.1 mg/dL (0.2-1.0); BLOOD UREA NITROGEN,BUN 19 mg/dL (7.0-18.0); CALCIUM 10.1 mg/dL (8.5-10.1); CARBON DIOXIDE,CO2 30.5 mmol/L (21.0-32.0); CHLORIDE,CL 98 mmol/L (98-107); CREATININE 1.7 mg/dL (0.8-1.3); EST CRCL DRUG DOSING (CG) 55.45 mL/min; ETHANOL BLOOD MEDICAL <3 mg/dL; GLUCOSE RANDOM 102 mg/dL (74-106); LIPASE 49 U/L (16-77); POTASSIUM,K 4.2 mmol/L (3.5-5.1); PRO B-TYPE NATRIUR PEPT,BNPPRO 16 pg/mL (0-125); PROTEIN TOTAL,TP 8.6 g/dL (6.4-8.2); SODIUM,NA 136 mmol/L (136-148)
[2024-07-29 13:33] LABS: ESTIMATED GFR 50 mL/min (>60)
[2024-07-29 13:37] LABS: D-DIMER QUANTITATIVE 20.17 mg/L FEU (0.00-0.50); INR 1.07 (0.86-1.11); PTT,PARTIAL THROMBOPLSTIN TIME 24.5 SEC (23.9-30.7)
[2024-07-29] MEDS: Sodium Chloride 0.9% 1,000 ML IV STA ×2 (15:11→15:12)
[2024-07-29 17:03] VITALS: BP 141/111; PULSE 97
[2024-07-29 17:08] LABS: CALCIUM 8.7 mg/dL (8.5-10.1); CARBON DIOXIDE,CO2 29.9 mmol/L (21.0-32.0); CREATININE 1.4 mg/dL (0.8-1.3); EST CRCL DRUG DOSING (CG) 67.33 mL/min; POTASSIUM,K 4.1 mmol/L (3.5-5.1)
[2024-07-29 17:14] LABS: APPEARANCE,URINE CLEAR; BILIRUBIN,URINE NEGATIVE (NEGATIVE); COLOR,URINE YELLOW; GLUCOSE,URINE NEGATIVE (NEGATIVE); KETONES,URINE TRACE mg/dL (NEGATIVE); LEUKOCYTE ESTERASE,URINE NEGATIVE (NEGATIVE); NITRITE,URINE NEGATIVE (NEGATIVE); OCCULT BLOOD,URINE NEGATIVE (NEGATIVE); PH,URINE 5.5 (5.0-8.0); PROTEIN,URINE NEGATIVE (NEGATIVE); UROBILINOGEN,URINE 0.2 EU/dL (<2.0)
[2024-07-29 17:24] LABS: AMPHETAMINES SCREEN, URINE NEGATIVE (CUTOFF=500); BARBITURATE SCREEN,URINE NEGATIVE (CUTOFF=200); BENZODIAZEPINES SCREEN,URINE NEGATIVE (CUTOFF=150); BUPRENORPHINE SCREEN,URINE NEGATIVE (CUTOFF=10); METHADONE SCREEN, URINE NEGATIVE (CUTOFF=200); METHAMPHETAMINES SCREEN, URINE NEGATIVE (CUTOFF=500); OXYCODONE SCREEN,URINE NEGATIVE (CUT0FF=100); PCP SCREEN,URINE NEGATIVE (CUTOFF=25); THC SCREEN,URINE 20 NG/ML NEGATIVE (CUTOFF=50)
== END 2024-07-29 17:40 | disposition home or self-care (01) ==
LOC: MW.ED 11:55
DX: R06.02 Shortness of breath (principal); R53.83 Other fatigue; E86.0 Dehydration; I10 Essential (primary) hypertension; Z79.899 Other long term (current) drug therapy; Z75.3 Unavailability and inaccessibility of health-care facilities
CPT/HCPCS: 36415; 71275; 80048; 80053; 80305; 80307; 81003; 83690; 83735; 83880; 84484; 85025; 85379; 85610; 85730; 93005; 96360; 96361; 99285; A9270; J7030; Q9967; 93010; 99284